=== PATIENT | female | born 1960 | race Caucasian/White ===

== ENCOUNTER 2016-12-19 10:54 | Emergency (ER) | payer OTHER, MEDICAID ==
[~2016-12-19 10:54] MED LIST: ACE1030 IN; ACET160S GT; ALBU0.084 IN; ARIP20TA5 GT; ASPI325T4 GT; BENZ1CAP24 GT; CALCTAB25 GT; CARI-277 GT; CRAN425C2 GT; DOCU-94 GT; FAM20T GT; FERR220E2 GT; GABA300C GT; IPRA0.03 IN; LORA-622 GT; LORA-655 PO; MULTCAP45 GT; NAPR-604 GT; NUTR-1080 GT; POLY33504 GT; QUET50TA GT; SERT-160 GT; TRAM-297 PO; ZOLP12.564 GT
[2016-12-19] MEDS ORDERED: SODIUM CHLORIDE 0.9% 1,000 ML IV ONE (11:07)
[2016-12-19 11:37] LABS: Urine Bilirubin Negative (Negative); Urine Blood Negative /uL (Negative); Urine Color Yellow (Yellow); Urine Glucose Normal (Normal); Urine Ketone Negative (Negative); Urine Nitrite Negative (Negative); Urine RBC 1 /hpf (0 - 4); Urine Squamous Epithelial Cell FEW /hpf (<5); Urine Urobilinogen Normal (Negative)
[2016-12-19 13:13] LABS: Basophils # (auto) 0 uL; Basophils % (auto) 0.2 % (0.0-2.0); Eosinophils # (auto) 0.2 uL; Hematocrit 45.3 % (36.0-46.0); Hemoglobin 15.3 g/dL (12.2-16.2); Lymphocytes # (auto) 0.7 uL; Mean Corpuscular Hemoglobin 28.2 pg (28.0-32.0); Mean Corpuscular Hgb Conc. 33.8 g/dL (32.0-36.0); Mean Corpuscular Volume 83.4 fL (80.0-100.0); Mean Platelet Volume 8.2 fL (7.4-10.4); Monocytes # (auto) 0.3 uL; Monocytes % (auto) 4.9 % (0.0-12.0); Neutrophils # (auto) 4.2 uL; Neutrophils % (auto) 78.9 % (37.0-80.0); Platelet Count (auto) 114 10^3/uL (140-450); Red Cell Distribution Width 14.8 % (11.6-16.0); White Blood Cell 5.3 10^3/uL (4.4-10.8)
[2016-12-19 13:29] LABS: Albumin 3.5 g/dL (3.4-5.0); Anion Gap 5 (5-15); Blood Urea Nitrogen 14 mg/dL (7-18); Calcium 9.4 mg/dL (8.5-10.1); Carbon Dioxide 35 mmol/L (21-32); Chloride 98 mmol/L (98-107); Glucose 92 mg/dL (74-106); Magnesium 2.6 mg/dL (1.6-2.6); Potassium 4.4 mmol/L (3.5-5.1); Sodium 138 mmol/L (136-145)
[2016-12-19 13:31] LABS: Aspartate Aminotransferase 39 U/L (15-37); BUN/Creatinine Ratio 21.2; GFR African American 119 mL/min; GFR Non-African American 98 mL/min
[2016-12-19 13:36] LABS: Alkaline Phosphatase 151 U/L (45-117); Bilirubin, Total 0.4 mg/dL (0.2-1.0); Total Protein 7.6 g/dL (6.4-8.2)
[2016-12-19 14:02] LABS: B-Type Natriuretic Peptide 46.21 pg/mL (0-100)
[2016-12-19 14:09] LABS: Temperature: 24.3 C (20.0-25.0)
[2016-12-19 16:31] VITALS: BP 130/77
== END 2016-12-19 17:33 | disposition home or self-care (01) ==
LOC: EDBD 10:54 → ER 10:54 → EDUNIT# 10:54 → ER 17:33
DX: N39.0 Urinary tract infection, site not specified (principal); E11.9 Type 2 diabetes mellitus without complications; Z86.73 Personal history of transient ischemic attack (TIA), and cerebral infarction without residual deficits; J44.9 Chronic obstructive pulmonary disease, unspecified; I10 Essential (primary) hypertension; Z46.82 Encounter for fitting and adjustment of non-vascular catheter; Z79.82 Long term (current) use of aspirin; Z79.899 Other long term (current) drug therapy
CPT/HCPCS: 36415; 70110; 70486; 71010; 80053; 81001; 83605; 83735; 83880; 84484; 85025; 87040; 94761

== ENCOUNTER 2016-12-19 18:52 | Emergency (ER) | payer OTHER, MEDICAID ==
[~2016-12-19] VITALS: Ht 167.6 cm; Wt 68.0 kg
[2016-12-19] MEDS ORDERED: PROPOFOL 100 ML IV ONE (20:47)
[2016-12-19 21:00] VITALS: BP 104/64
[2016-12-19] MEDS ORDERED: PROPOFOL 10 MG/ML 20 ML IV ONE (21:00)
== END 2016-12-19 22:29 | disposition home or self-care (01) ==
LOC: EDUNIT# 18:52 → ER 18:55
DX: S03.03XA Dislocation of jaw, bilateral, initial encounter (principal); J44.9 Chronic obstructive pulmonary disease, unspecified; E11.9 Type 2 diabetes mellitus without complications; I10 Essential (primary) hypertension; Z86.73 Personal history of transient ischemic attack (TIA), and cerebral infarction without residual deficits; X58.XXXA Exposure to other specified factors, initial encounter; Y93.89 Activity, other specified; Y99.8 Other external cause status; Y92.89 Other specified places as the place of occurrence of the external cause
CPT/HCPCS: 21480; 94761; 99152; 99285; J2704

== ENCOUNTER 2017-03-04 16:44 | Emergency (ER) | payer OTHER, MEDICAID ==
[~2017-03-04] VITALS: Ht 167.6 cm; Wt 63.5 kg
[~2017-03-04 16:44] MED LIST changes: -ACET160S GT; +ACET5SOL5 GT; +ARIP1TAB7 GT; -ARIP20TA5 GT
[2017-03-04 19:36] LABS: Potassium 4.8 mmol/L (3.5-5.1)
[2017-03-04 19:39] LABS: BUN/Creatinine Ratio 22.8; Calcium 8.9 mg/dL (8.5-10.1)
[2017-03-04 19:41] LABS: Bilirubin, Total 0.4 mg/dL (0.2-1.0); Total Protein 6.8 g/dL (6.4-8.2)
[2017-03-04 20:05] LABS: Basophils # (auto) 0 uL; Basophils % (auto) 0.3 % (0.0-2.0); CONDITION Y; Eosinophils # (auto) 0.2 uL; Hematocrit 35.5 % (36.0-46.0); Lymphocytes # (auto) 1.1 uL; Mean Corpuscular Hemoglobin 28.7 pg (28.0-32.0); Mean Corpuscular Hgb Conc. 33.8 g/dL (32.0-36.0); Mean Corpuscular Volume 84.8 fL (80.0-100.0); Mean Platelet Volume 8.1 fL (7.4-10.4); Monocytes # (auto) 0.3 uL; Monocytes % (auto) 5.2 % (0.0-12.0); Neutrophils # (auto) 3.5 uL; Neutrophils % (auto) 68.5 % (37.0-80.0); Platelet Count (auto) 196 10^3/uL (140-450); Red Cell Distribution Width 14.5 % (11.6-16.0); White Blood Cell 5.2 10^3/uL (4.4-10.8)
[2017-03-04] MEDS ORDERED: ETOMIDATE (2MG/ML) 20ML VIAL IV ONE ×2 (20:36→20:45)
[2017-03-04] MEDS ORDERED: SUCCINYLCHOLINE CHLORIDE 20 MG/ML 10ML VIAL IV ONE ×2 (20:36→20:45)
[2017-03-05 01:23] VITALS: BP 103/62
== END 2017-03-05 03:21 | disposition home or self-care (01) ==
LOC: EDBD 16:44 → ER 16:47
DX: S03.03XA Dislocation of jaw, bilateral, initial encounter (principal); J96.10 Chronic respiratory failure, unspecified whether with hypoxia or hypercapnia; I63.9 Cerebral infarction, unspecified; J44.9 Chronic obstructive pulmonary disease, unspecified; E11.9 Type 2 diabetes mellitus without complications; I10 Essential (primary) hypertension; Z93.0 Tracheostomy status; Z79.899 Other long term (current) drug therapy; X58.XXXA Exposure to other specified factors, initial encounter; Y93.89 Activity, other specified; Y99.8 Other external cause status; Y92.89 Other specified places as the place of occurrence of the external cause
CPT/HCPCS: 21480; 36415; 70330; 70486; 80053; 85025; 99152; 99153; 99291; J0330; 20605

== ENCOUNTER 2017-06-09 09:59 | Emergency (ER) | payer OTHER, MEDICAID ==
[~2017-06-09] VITALS: Ht 175.3 cm; Wt 83.9 kg
[~2017-06-09 09:59] MED LIST changes: -NAPR-604 GT; +NAPR375T3 GT
[2017-06-09] MEDS ORDERED: SODIUM CHLORIDE 0.9% 1,000 ML IV SCH (13:34)
[2017-06-09] MEDS ORDERED: LORazepam 2MG/ML-1ML VIAL IV PRN (13:45)
[2017-06-09] MEDS ORDERED: PROMETHAZINE HCL 25 MG/ML 1ML IV PRN (13:45)
[2017-06-09] MEDS ORDERED: MORPHINE SULFATE 10 MG/ML INJ 1ML SDV IV PRN (13:45)
[2017-06-09] MEDS ORDERED: LORazepam 0.5 MG TAB PO PRN (13:45)
[2017-06-09] MEDS ORDERED: traMADol HCL 50 MG TAB PO PRN (13:45)
[2017-06-09] MEDS ORDERED: GASTROGRAFIN 30 ML SOL ONE (13:50)
[2017-06-09] MEDS ORDERED: [UNRECOGNIZED DRUG - OTHER] GT SCH (14:00)
[2017-06-09 14:34] VITALS: BP 102/55
[2017-06-09] MEDS ORDERED: QUEtiapine FUMARATE 25 MG TAB GT SCH (18:00)
[2017-06-09] MEDS ORDERED: IPRATROPIUM BROM 0.5 MG/2.5ML INH SOL NEB PRN (18:00)
[2017-06-09] MEDS ORDERED: ALBUTEROL SULF 2.5 MG/0.5ML(0.5%) NEB SOLN NEB PRN (18:00)
[2017-06-09] MEDS ORDERED: GABAPENTIN 300 MG CAP GT SCH (22:00)
[2017-06-09] MEDS ORDERED: FERROUS SULFATE 220 MG GT SCH (22:00)
[2017-06-09] MEDS ORDERED: FAMOTIDINE 20 MG TAB GT SCH (22:00)
[2017-06-09] MEDS ORDERED: CARISOPRODOL 350 MG TAB GT SCH (22:00)
[2017-06-09] MEDS ORDERED: ZOLPIDEM TARTRATE 5 MG TAB GT SCH (22:00)
[2017-06-10] MEDS ORDERED: ARIPIPRAZOLE 15 MG GT SCH (10:00)
[2017-06-10] MEDS ORDERED: CALCIUM W/VIT D (600MG/400IU) TAB GT SCH (10:00)
[2017-06-10] MEDS ORDERED: MULTIPLE VITAMIN TAB GT SCH (10:00)
[2017-06-10] MEDS ORDERED: SERTRALINE HCL 50 MG TAB GT SCH (10:00)
== END 2017-06-09 16:47 | disposition home or self-care (01) ==
LOC: EDBD 09:59 → ER 09:59
DX: Z43.1 Encounter for attention to gastrostomy (principal); J44.9 Chronic obstructive pulmonary disease, unspecified; E11.9 Type 2 diabetes mellitus without complications; I10 Essential (primary) hypertension; Z86.73 Personal history of transient ischemic attack (TIA), and cerebral infarction without residual deficits; Z79.899 Other long term (current) drug therapy
CPT/HCPCS: 43760; 74020; 99284; Q9963

== ENCOUNTER 2017-08-14 12:48 | Emergency (ER) | payer OTHER, MEDICAID ==
[~2017-08-14] VITALS: Ht 167.6 cm; Wt 68.0 kg
[~2017-08-14 12:48] MED LIST changes: +NAPR375T27 GT; -NAPR375T3 GT
[2017-08-14] MEDS ORDERED: SODIUM CHLORIDE 0.9% 1,000 ML IVB ONE (13:46)
[2017-08-14] MEDS ORDERED: LORazepam 2MG/ML-1ML VIAL IV ONE (14:00)
[2017-08-14 14:37] LABS: Basophils # (auto) 0 uL; Basophils % (auto) 0.4 % (0.0-2.0); Eosinophils # (auto) 0 uL; Eosinophils % (auto) 0.5 % (0.0-7.0); Hematocrit 37.7 % (36.0-46.0); Hemoglobin 12.5 g/dL (12.2-16.2); Lymphocytes # (auto) 0.5 uL; Lymphocytes % (auto) 11.3 % (10.0-50.0); Mean Corpuscular Hemoglobin 30.3 pg (28.0-32.0); Mean Corpuscular Hgb Conc. 33.1 g/dL (32.0-36.0); Mean Corpuscular Volume 91.6 fL (80.0-100.0); Monocytes # (auto) 0.3 uL; Monocytes % (auto) 6.7 % (0.0-12.0); Neutrophils # (auto) 3.3 uL; Neutrophils % (auto) 81.1 % (37.0-80.0); Nucleated Red Blood Cells % 0.1 %; Platelet Count (auto) 136 10^3/uL (140-450); Red Blood Cells 4.12 10^6/uL (4.0-5.20); Red Cell Distribution Width 14.5 % (11.8-14.3); White Blood Cell 4.1 10^3/uL (4.4-10.8)
[2017-08-14 14:57] LABS: BUN/Creatinine Ratio 19.7; Bilirubin, Total 0.5 mg/dL (0.2-1.0); Calcium 8.4 mg/dL (8.5-10.1); Total Protein 6.9 g/dL (6.4-8.2)
[2017-08-14 16:12] LABS: Urine Bacteria NONE SEEN /hpf (None Seen); Urine Blood Negative /uL (Negative); Urine Specific Gravity 1.011 (1.001-1.035); Urine WBC 3 /hpf (0 - 5)
[2017-08-14 17:15] VITALS: BP 109/55
[2017-08-14] MEDS ORDERED: cefTRIAXone 1GM/10ml IVPUSH 10 ML IV ONE (18:15)
== END 2017-08-14 19:10 | disposition home or self-care (01) ==
LOC: EDBD 12:48 → ER 12:57
DX: S03.03XA Dislocation of jaw, bilateral, initial encounter (principal); J44.9 Chronic obstructive pulmonary disease, unspecified; E11.9 Type 2 diabetes mellitus without complications; I10 Essential (primary) hypertension; E44.1 Mild protein-calorie malnutrition; R62.50 Unspecified lack of expected normal physiological development in childhood; R06.02 Shortness of breath; R74.8 Abnormal levels of other serum enzymes; Z68.24 Body mass index [BMI] 24.0-24.9, adult; Z87.440 Personal history of urinary (tract) infections; Z79.82 Long term (current) use of aspirin; Z86.73 Personal history of transient ischemic attack (TIA), and cerebral infarction without residual deficits; Z93.1 Gastrostomy status; Z93.0 Tracheostomy status; Z79.899 Other long term (current) drug therapy; X58.XXXA Exposure to other specified factors, initial encounter; Y93.89 Activity, other specified; Y92.89 Other specified places as the place of occurrence of the external cause; Y99.8 Other external cause status
CPT/HCPCS: 21480; 36415; 51702; 80053; 81001; 83735; 85025; 93005; 96361; 96374; 99285; J2060

== ENCOUNTER 2017-08-19 20:12 | Emergency (ER) | payer OTHER, MEDICAID ==
[~2017-08-19] VITALS: Ht 167.6 cm; Wt 68.0 kg
[2017-08-19] MEDS ORDERED: LORazepam 2MG/ML-1ML VIAL IV ONE (23:30)
[2017-08-20] MEDS ORDERED: ETOMIDATE (2MG/ML) 20ML VIAL IV ONE ×2 (03:45→06:15)
[2017-08-20 08:23] VITALS: BP 148/76
== END 2017-08-20 09:29 | disposition home or self-care (01) ==
LOC: EDBD 20:12 → ER 20:12
DX: S03.03XA Dislocation of jaw, bilateral, initial encounter (principal); X58.XXXA Exposure to other specified factors, initial encounter; Y93.89 Activity, other specified; Y92.89 Other specified places as the place of occurrence of the external cause; Y99.8 Other external cause status; J44.9 Chronic obstructive pulmonary disease, unspecified; E11.9 Type 2 diabetes mellitus without complications; I10 Essential (primary) hypertension; Z86.73 Personal history of transient ischemic attack (TIA), and cerebral infarction without residual deficits; Z79.82 Long term (current) use of aspirin
CPT/HCPCS: 21480; 70110; 70486; 96374; 99285; J2060; J7030

== ENCOUNTER 2017-11-02 11:22 | Emergency (ER) | payer OTHER, MEDICAID ==
[~2017-11-02] VITALS: Ht 172.7 cm; Wt 78.0 kg
[2017-11-02] MEDS ORDERED: LORazepam 2MG/ML-1ML VIAL IV ONE (16:15)
[2017-11-03 03:30] VITALS: BP 115/70
== END 2017-11-02 18:02 | disposition home or self-care (01) ==
LOC: ER 11:22 → EDBD 11:22 → ER 18:02
DX: S03.00XA Dislocation of jaw, unspecified side, initial encounter (principal); J96.10 Chronic respiratory failure, unspecified whether with hypoxia or hypercapnia; I10 Essential (primary) hypertension; E11.9 Type 2 diabetes mellitus without complications; R62.50 Unspecified lack of expected normal physiological development in childhood; J44.9 Chronic obstructive pulmonary disease, unspecified; F32.9 Major depressive disorder, single episode, unspecified; Z88.6 Allergy status to analgesic agent; Z86.73 Personal history of transient ischemic attack (TIA), and cerebral infarction without residual deficits; X58.XXXA Exposure to other specified factors, initial encounter; Y93.89 Activity, other specified; Y92.89 Other specified places as the place of occurrence of the external cause; Y99.8 Other external cause status
CPT/HCPCS: 21480; 99285; J2060

== ENCOUNTER 2018-04-24 09:25 | Emergency (ER) | payer OTHER, MEDICAID ==
[~2018-04-24] VITALS: Ht 167.6 cm; Wt 99.8 kg
[~2018-04-24 09:25] MED LIST changes: -FERR220E2 GT; +FERR220L GT
[2018-04-24] MEDS ORDERED: MIDAZOLAM HCL 1MG/1ML-2 ML VIAL IV ONE (10:15)
[2018-04-24] MEDS ORDERED: ONDANSETRON HCL 4 MG/2 ML VIAL IV ONE (10:15)
[2018-04-24] MEDS ORDERED: ETOMIDATE (2MG/ML) 20ML VIAL IV ONE (11:45)
[2018-04-24] MEDS ORDERED: MORPHINE SULFATE 4 MG/ML SYR/VIAL IV ONE (11:45)
[2018-04-24 12:48] VITALS: BP 125/71
== END 2018-04-24 12:56 | disposition home or self-care (01) ==
LOC: EDBD 09:25 → ER 09:25
DX: S03.03XA Dislocation of jaw, bilateral, initial encounter (principal); J44.9 Chronic obstructive pulmonary disease, unspecified; E11.9 Type 2 diabetes mellitus without complications; I10 Essential (primary) hypertension; Z86.73 Personal history of transient ischemic attack (TIA), and cerebral infarction without residual deficits; Z87.440 Personal history of urinary (tract) infections; X58.XXXA Exposure to other specified factors, initial encounter; Y93.89 Activity, other specified; Y92.89 Other specified places as the place of occurrence of the external cause; Y99.8 Other external cause status
CPT/HCPCS: 21480; 70140; 96374; 96375; 99285; J2250; J2270; J2405

== ENCOUNTER 2018-04-30 13:28 | Emergency (ER) | payer OTHER, MEDICAID ==
[~2018-04-30] VITALS: Ht 154.9 cm; Wt 72.6 kg
[2018-04-30] MEDS ORDERED: PANT40TA2 GT (13:57)
[2018-04-30] MEDS ORDERED: LORazepam 2MG/ML-1ML VIAL ONE (14:31)
[2018-04-30] MEDS ORDERED: LORazepam 2MG/ML-1ML VIAL IV ONE (14:45)
[2018-04-30 15:35] VITALS: BP 180/78
== END 2018-04-30 15:16 | disposition home or self-care (01) ==
LOC: EDBD 13:28 → ER 13:28
DX: S03.03XA Dislocation of jaw, bilateral, initial encounter (principal); J44.9 Chronic obstructive pulmonary disease, unspecified; E11.9 Type 2 diabetes mellitus without complications; I10 Essential (primary) hypertension; Z86.73 Personal history of transient ischemic attack (TIA), and cerebral infarction without residual deficits; Z88.8 Allergy status to other drugs, medicaments and biological substances; Z79.82 Long term (current) use of aspirin; Z79.899 Other long term (current) drug therapy; Z93.0 Tracheostomy status; Z93.1 Gastrostomy status; X58.XXXA Exposure to other specified factors, initial encounter; Y93.89 Activity, other specified; Y99.8 Other external cause status; Y92.89 Other specified places as the place of occurrence of the external cause
CPT/HCPCS: 21480; 96374; 99284; J2060

== ENCOUNTER 2018-06-01 11:39 | Emergency (ER) | payer MEDICAID, MEDICARE, OTHER ==
[~2018-06-01] VITALS: Ht 167.6 cm; Wt 63.5 kg
[~2018-06-01 11:39] MED LIST changes: -DOCU-94 GT; -FAM20T GT; +PANT40TA2 GT
[2018-06-01] MEDS ORDERED: MIDAZOLAM HCL 1MG/1ML-2 ML VIAL IV ONE (12:15)
[2018-06-01] MEDS ORDERED: ONDANSETRON HCL 4 MG/2 ML VIAL IV ONE (12:15)
[2018-06-01 16:51] VITALS: BP 107/63
== END 2018-06-01 17:08 | disposition home or self-care (01) ==
LOC: ER 11:39 → EDBD 11:39 → EDUNIT# 11:39 → ER 17:08
DX: S03.01XA Dislocation of jaw, right side, initial encounter (principal); E11.9 Type 2 diabetes mellitus without complications; I10 Essential (primary) hypertension; J44.9 Chronic obstructive pulmonary disease, unspecified; Z86.73 Personal history of transient ischemic attack (TIA), and cerebral infarction without residual deficits; Z79.899 Other long term (current) drug therapy; Z88.8 Allergy status to other drugs, medicaments and biological substances; X58.XXXA Exposure to other specified factors, initial encounter; Y93.89 Activity, other specified; Y99.8 Other external cause status; Y92.89 Other specified places as the place of occurrence of the external cause
CPT/HCPCS: 21480; 70140; 93005; 96374; 99152; 99285; J2250; J2405; 96375

== ENCOUNTER 2018-07-04 09:39 | Emergency (ER) | payer MEDICARE ==
[~2018-07-04] VITALS: Ht 167.6 cm; Wt 68.0 kg
[2018-07-04] MEDS: MIDAZOLAM HCL 5 MG/ML-1ML VIAL IV ONE (11:03)
[2018-07-04 12:33] VITALS: BP 99/59
== END 2018-07-04 13:19 | disposition home or self-care (01) ==
LOC: EDBD 09:39 → ER 09:39
DX: S03.03XA Dislocation of jaw, bilateral, initial encounter (principal); J44.9 Chronic obstructive pulmonary disease, unspecified; E11.9 Type 2 diabetes mellitus without complications; I10 Essential (primary) hypertension; Z86.73 Personal history of transient ischemic attack (TIA), and cerebral infarction without residual deficits; Z87.440 Personal history of urinary (tract) infections; Z88.6 Allergy status to analgesic agent; Z79.82 Long term (current) use of aspirin; Z79.899 Other long term (current) drug therapy; X58.XXXA Exposure to other specified factors, initial encounter; Y93.89 Activity, other specified; Y92.89 Other specified places as the place of occurrence of the external cause; Y99.8 Other external cause status
CPT/HCPCS: 21480; 94761; 96374; 99284; J2250

== ENCOUNTER 2018-07-10 11:18 | Emergency (ER) | payer MEDICARE ==
[~2018-07-10] VITALS: Ht 167.6 cm; Wt 72.6 kg
[2018-07-10] MEDS ORDERED: MIDAZOLAM HCL 5 MG/ML-1ML VIAL IV ONE (11:45)
[2018-07-10 15:54] VITALS: BP 104/59
== END 2018-07-10 15:55 | disposition home or self-care (01) ==
LOC: ER 11:18 → EDBD 11:18 → ER 15:55
DX: S03.00XA Dislocation of jaw, unspecified side, initial encounter (principal); J44.9 Chronic obstructive pulmonary disease, unspecified; E11.9 Type 2 diabetes mellitus without complications; I10 Essential (primary) hypertension; Z86.73 Personal history of transient ischemic attack (TIA), and cerebral infarction without residual deficits; Z79.899 Other long term (current) drug therapy; Z88.8 Allergy status to other drugs, medicaments and biological substances; X58.XXXA Exposure to other specified factors, initial encounter; Y93.89 Activity, other specified; Y99.8 Other external cause status; Y92.89 Other specified places as the place of occurrence of the external cause
CPT/HCPCS: 21480; 70110; 94761; 99285; J2250

== ENCOUNTER 2018-07-29 10:26 | Emergency (ER) | payer MEDICARE ==
[~2018-07-29] VITALS: Ht 162.6 cm; Wt 81.6 kg
[2018-07-29] MEDS ORDERED: ETOMIDATE (2MG/ML) 20ML VIAL IV ONE (11:00)
[2018-07-29 16:07] VITALS: BP 126/70
== END 2018-07-29 16:52 | disposition home or self-care (01) ==
LOC: EDUNIT# 10:26 → ER 10:26 → EDBD 10:26 → ER 16:52
DX: S03.00XA Dislocation of jaw, unspecified side, initial encounter (principal); J44.9 Chronic obstructive pulmonary disease, unspecified; E11.9 Type 2 diabetes mellitus without complications; I10 Essential (primary) hypertension; Z79.82 Long term (current) use of aspirin; Z79.899 Other long term (current) drug therapy; Z86.73 Personal history of transient ischemic attack (TIA), and cerebral infarction without residual deficits; Z88.8 Allergy status to other drugs, medicaments and biological substances; X58.XXXA Exposure to other specified factors, initial encounter; Y93.89 Activity, other specified; Y99.8 Other external cause status; Y92.89 Other specified places as the place of occurrence of the external cause
CPT/HCPCS: 96374

== ENCOUNTER 2018-08-13 11:51 | Emergency (ER) | payer MEDICARE ==
[~2018-08-13] VITALS: Ht 170.2 cm; Wt 72.6 kg
[2018-08-13] MEDS ORDERED: MIDAZOLAM HCL 1MG/1ML-2 ML VIAL IV ONE (12:00)
[2018-08-13 12:06] VITALS: BP 105/66
[2018-08-13] MEDS ORDERED: diphenhdrAMINE HCL 50 MG/1 ML VL IV ONE (12:30)
== END 2018-08-13 14:19 | disposition home or self-care (01) ==
LOC: EDBD 11:51 → ER 11:56
DX: S03.03XA Dislocation of jaw, bilateral, initial encounter (principal); J44.9 Chronic obstructive pulmonary disease, unspecified; E11.9 Type 2 diabetes mellitus without complications; I10 Essential (primary) hypertension; Z86.73 Personal history of transient ischemic attack (TIA), and cerebral infarction without residual deficits; Z87.440 Personal history of urinary (tract) infections; Z79.01 Long term (current) use of anticoagulants; Z79.82 Long term (current) use of aspirin; Z88.6 Allergy status to analgesic agent; X58.XXXA Exposure to other specified factors, initial encounter; Y93.89 Activity, other specified; Y92.89 Other specified places as the place of occurrence of the external cause; Y99.8 Other external cause status
CPT/HCPCS: 21480; 70110; 94761; 96374; 99284; J2250

== ENCOUNTER 2018-08-30 09:31 | Emergency (ER) | payer MEDICARE ==
[~2018-08-30] VITALS: Ht 154.9 cm; Wt 77.1 kg
[2018-08-30] MEDS ORDERED: SODIUM CHLORIDE 0.9% 1,000 ML IV ONE (10:03)
[2018-08-30] MEDS ORDERED: MIDAZOLAM HCL 5 MG/ML-1ML VIAL IV ONE (10:15)
[2018-08-30 15:41] VITALS: BP 115/62
== END 2018-08-30 16:51 | disposition home or self-care (01) ==
LOC: EDBD 09:31 → ER 09:34
DX: S03.03XA Dislocation of jaw, bilateral, initial encounter (principal); S62.522A Displaced fracture of distal phalanx of left thumb, initial encounter for closed fracture; J96.10 Chronic respiratory failure, unspecified whether with hypoxia or hypercapnia; J44.9 Chronic obstructive pulmonary disease, unspecified; E11.9 Type 2 diabetes mellitus without complications; K21.9 Gastro-esophageal reflux disease without esophagitis; I10 Essential (primary) hypertension; Z93.1 Gastrostomy status; Z93.0 Tracheostomy status; Z87.440 Personal history of urinary (tract) infections; Z88.8 Allergy status to other drugs, medicaments and biological substances; Z79.899 Other long term (current) drug therapy; X58.XXXA Exposure to other specified factors, initial encounter; Y93.89 Activity, other specified; Y92.89 Other specified places as the place of occurrence of the external cause; Y99.8 Other external cause status
CPT/HCPCS: 21480; 29130; 73130; 99284; J2250; J7030

== ENCOUNTER 2018-09-18 18:27 | Emergency (ER) | payer MEDICARE ==
[~2018-09-18] VITALS: Ht 160 cm; Wt 63.5 kg
[2018-09-18] MEDS ORDERED: ETOMIDATE (2MG/ML) 20ML VIAL IV ONE (22:30)
[2018-09-19 05:40] VITALS: BP 101/52
== END 2018-09-19 06:15 | disposition home or self-care (01) ==
LOC: EDBD 18:27 → ER 18:31
DX: S03.03XA Dislocation of jaw, bilateral, initial encounter (principal); E11.9 Type 2 diabetes mellitus without complications; J44.9 Chronic obstructive pulmonary disease, unspecified; K21.9 Gastro-esophageal reflux disease without esophagitis; I10 Essential (primary) hypertension; Z79.899 Other long term (current) drug therapy; Z86.73 Personal history of transient ischemic attack (TIA), and cerebral infarction without residual deficits; Z79.82 Long term (current) use of aspirin; X58.XXXA Exposure to other specified factors, initial encounter; Y93.89 Activity, other specified; Y99.8 Other external cause status; Y92.89 Other specified places as the place of occurrence of the external cause
CPT/HCPCS: 21480; 70110; 70486

== ENCOUNTER 2018-09-23 09:54 | Emergency (ER) | payer MEDICARE ==
[~2018-09-23] VITALS: Ht 162.6 cm; Wt 63.5 kg
[2018-09-23] MEDS ORDERED: MIDAZOLAM HCL 1MG/1ML-2 ML VIAL IM ONE (12:30)
[2018-09-23] MEDS ORDERED: ETOMIDATE (2MG/ML) 20ML VIAL IV ONE ×2 (13:45→15:15)
[2018-09-23] MEDS ORDERED: KETAMINE HCL 50 MG/ML 10ML VIAL IM ONE (14:30)
[2018-09-23 16:02] VITALS: BP 108/68
== END 2018-09-23 16:49 | disposition home or self-care (01) ==
LOC: EDBD 09:54 → ER 09:54
DX: S03.03XA Dislocation of jaw, bilateral, initial encounter (principal); R41.82 Altered mental status, unspecified; J44.9 Chronic obstructive pulmonary disease, unspecified; E11.9 Type 2 diabetes mellitus without complications; K21.9 Gastro-esophageal reflux disease without esophagitis; I10 Essential (primary) hypertension; F32.9 Major depressive disorder, single episode, unspecified; Z86.73 Personal history of transient ischemic attack (TIA), and cerebral infarction without residual deficits; Z87.440 Personal history of urinary (tract) infections; X58.XXXA Exposure to other specified factors, initial encounter; Y93.89 Activity, other specified; Y92.89 Other specified places as the place of occurrence of the external cause; Y99.8 Other external cause status
CPT/HCPCS: 21480; 70110; 99285; J2250; J7030

== ENCOUNTER 2018-09-25 16:02 | Emergency (ER) | payer MEDICARE ==
[2018-09-25] MEDS ORDERED: ETOMIDATE (2MG/ML) 20ML VIAL IV ONE ×2 (17:15→17:45)
[2018-09-25 17:55] VITALS: BP 106/68
== END 2018-09-25 19:13 | disposition home or self-care (01) ==
LOC: EDBD 16:02 → EDSEX 16:02 → ER 16:07
DX: S03.03XA Dislocation of jaw, bilateral, initial encounter (principal); J44.9 Chronic obstructive pulmonary disease, unspecified; E11.9 Type 2 diabetes mellitus without complications; K21.9 Gastro-esophageal reflux disease without esophagitis; I10 Essential (primary) hypertension; Z87.440 Personal history of urinary (tract) infections; Z79.899 Other long term (current) drug therapy; X58.XXXA Exposure to other specified factors, initial encounter; Y93.89 Activity, other specified; Y92.89 Other specified places as the place of occurrence of the external cause; Y99.8 Other external cause status
CPT/HCPCS: 21480

== ENCOUNTER 2018-09-27 19:49 | Emergency (ER) | payer MEDICARE, MEDICAID ==
[2018-09-27] MEDS ORDERED: MIDAZOLAM HCL 5 MG/ML-1ML VIAL IV ONE (22:15)
[2018-09-28] MEDS ORDERED: MIDAZOLAM HCL 5 MG/ML-1ML VIAL IM ONE (05:30)
[2018-09-28] MEDS ORDERED: MORPHINE SULFATE 4 MG/ML SYR/VIAL IM ONE (12:00)
[2018-09-28] MEDS ORDERED: ONDANSETRON HCL 4 MG/2 ML VIAL IM ONE (12:00)
[2018-09-28 12:34] VITALS: BP 110/72
== END 2018-09-28 12:58 | disposition short-term general hospital (02) ==
LOC: EDBD 19:49 → ER 19:52
DX: S03.03XA Dislocation of jaw, bilateral, initial encounter (principal); E11.9 Type 2 diabetes mellitus without complications; K21.9 Gastro-esophageal reflux disease without esophagitis; J44.9 Chronic obstructive pulmonary disease, unspecified; I10 Essential (primary) hypertension; Z79.82 Long term (current) use of aspirin; Z79.899 Other long term (current) drug therapy; Z86.73 Personal history of transient ischemic attack (TIA), and cerebral infarction without residual deficits; X58.XXXA Exposure to other specified factors, initial encounter; Y93.89 Activity, other specified; Y99.8 Other external cause status; Y92.89 Other specified places as the place of occurrence of the external cause
CPT/HCPCS: 21480; 70486; 96372; 99285; J2250; J2270; J2405

== ENCOUNTER 2018-10-28 19:36 | Emergency (ER) | payer MEDICARE, MEDICAID ==
[~2018-10-28] VITALS: Ht 167.6 cm; Wt 79.8 kg
[2018-10-29] MEDS ORDERED: LORazepam 2MG/ML-1ML VIAL ONE (07:17)
[2018-10-29] MEDS ORDERED: MIDAZOLAM HCL 5 MG/ML-1ML VIAL IV ONE (07:30)
[2018-10-29] MEDS ORDERED: MIDAZOLAM HCL 1MG/1ML-2 ML VIAL IV ONE (07:30)
[2018-10-29] MEDS ORDERED: MIDAZOLAM HCL 5 MG/ML-1ML VIAL IM ONE (08:00)
[2018-10-29 09:44] VITALS: BP 112/62
== END 2018-10-29 09:48 ==
LOC: ER 19:36 → EDBD 19:36 → ER 10-29 09:48
DX: S03.03XA Dislocation of jaw, bilateral, initial encounter (principal); J44.9 Chronic obstructive pulmonary disease, unspecified; E11.9 Type 2 diabetes mellitus without complications; K21.9 Gastro-esophageal reflux disease without esophagitis; I10 Essential (primary) hypertension; Z87.440 Personal history of urinary (tract) infections; Z88.6 Allergy status to analgesic agent; Z79.899 Other long term (current) drug therapy; Z86.73 Personal history of transient ischemic attack (TIA), and cerebral infarction without residual deficits; X58.XXXA Exposure to other specified factors, initial encounter; Y93.89 Activity, other specified; Y92.89 Other specified places as the place of occurrence of the external cause; Y99.8 Other external cause status
CPT/HCPCS: 21480; 70486; 96372; 99285; J2250

== ENCOUNTER 2018-11-12 21:46 | Emergency (ER) | payer MEDICARE, MEDICAID ==
[~2018-11-12] VITALS: Ht 167.6 cm; Wt 77.1 kg
[2018-11-12] MEDS ORDERED: LORazepam 2MG/ML-1ML VIAL ONE (23:27)
[2018-11-13] MEDS ORDERED: ETOMIDATE (2MG/ML) 20ML VIAL IV ONE ×2 (05:40→06:00)
[2018-11-13 08:43] VITALS: BP 110/60
== END 2018-11-13 09:05 | disposition home or self-care (01) ==
LOC: EDBD 21:46 → ER 21:51
DX: S03.01XA Dislocation of jaw, right side, initial encounter (principal); J44.9 Chronic obstructive pulmonary disease, unspecified; E11.9 Type 2 diabetes mellitus without complications; K21.9 Gastro-esophageal reflux disease without esophagitis; I10 Essential (primary) hypertension; Z88.8 Allergy status to other drugs, medicaments and biological substances; Z79.899 Other long term (current) drug therapy; Z86.73 Personal history of transient ischemic attack (TIA), and cerebral infarction without residual deficits; X58.XXXA Exposure to other specified factors, initial encounter; Y93.89 Activity, other specified; Y99.8 Other external cause status; Y92.89 Other specified places as the place of occurrence of the external cause
CPT/HCPCS: 21480; 94640

== ENCOUNTER 2018-11-26 12:54 | Inpatient (IN) | payer MEDICARE, MEDICAID | END 2018-12-02 01:32 | LOC: TELE-CENTR 11-29 00:40 → OVERFLOW 11-28 22:52 → CENTRAL 11-28 23:00 → ER 12:54 → DOU 18:20 → OVERFLOW 23:35 | PROC: 5A1935Z Respiratory Ventilation, Less than 24 Consecutive Hours (ICD-10-PCS; principal; ~2018-11-26) | DX: A41.9 Sepsis, unspecified organism (principal); J96.21 Acute and chronic respiratory failure with hypoxia; J18.9 Pneumonia, unspecified organism; G93.41 Metabolic encephalopathy; T17.890A Other foreign object in other parts of respiratory tract causing asphyxiation, initial encounter; E44.0 Moderate protein-calorie malnutrition; J44.0 Chronic obstructive pulmonary disease with (acute) lower respiratory infection; E87.2 Acidosis; F31.9 Bipolar disorder, unspecified; D64.9 Anemia, unspecified; E11.9 Type 2 diabetes mellitus without complications; I10 Essential (primary) hypertension; Z93.0 Tracheostomy status; Z93.1 Gastrostomy status; E86.1 Hypovolemia; K80.20 Calculus of gallbladder without cholecystitis without obstruction; S03.00XA Dislocation of jaw, unspecified side, initial encounter ==

== ENCOUNTER 2018-12-09 16:01 | Emergency (ER) | payer MEDICARE, MEDICAID ==
[2018-12-09] MEDS ORDERED: LORazepam 2MG/ML-1ML VIAL IV ONE (17:00)
[2018-12-09 20:35] VITALS: BP 106/60
== END 2018-12-09 21:37 | disposition home or self-care (01) ==
LOC: EDBD 16:01 → ER 16:02
DX: S03.03XA Dislocation of jaw, bilateral, initial encounter (principal); J44.9 Chronic obstructive pulmonary disease, unspecified; E11.9 Type 2 diabetes mellitus without complications; K21.9 Gastro-esophageal reflux disease without esophagitis; I10 Essential (primary) hypertension; Z87.440 Personal history of urinary (tract) infections; X58.XXXA Exposure to other specified factors, initial encounter; Y93.89 Activity, other specified; Y92.89 Other specified places as the place of occurrence of the external cause; Y99.8 Other external cause status
CPT/HCPCS: 21480; 70110; 96374; 99285; J2060

== ENCOUNTER 2018-12-13 12:54 | Emergency (ER) | payer MEDICARE, MEDICAID ==
[~2018-12-13] VITALS: Ht 165.1 cm; Wt 81.6 kg
[2018-12-13] MEDS ORDERED: LORazepam 2MG/ML-1ML VIAL IV ONE (15:45)
[2018-12-13] MEDS ORDERED: LORazepam 2MG/ML-1ML VIAL IM ONE (16:00)
[2018-12-13] MEDS ORDERED: LORazepam 2MG/ML-1ML VIAL ONE (16:02)
[2018-12-13] MEDS ORDERED: hydrOXYzine HCL 25 MG/ML VL IM ONE (19:45)
[2018-12-13] MEDS ORDERED: MIDAZOLAM HCL 5 MG/ML-1ML VIAL IM ONE (20:00)
[2018-12-14 01:10] VITALS: BP 141/77
== END 2018-12-14 03:19 | disposition short-term general hospital (02) ==
LOC: EDBD 12:54 → ER 13:01
DX: S03.03XA Dislocation of jaw, bilateral, initial encounter (principal); J96.10 Chronic respiratory failure, unspecified whether with hypoxia or hypercapnia; J44.9 Chronic obstructive pulmonary disease, unspecified; E11.9 Type 2 diabetes mellitus without complications; K21.9 Gastro-esophageal reflux disease without esophagitis; I10 Essential (primary) hypertension; Z86.73 Personal history of transient ischemic attack (TIA), and cerebral infarction without residual deficits; Z87.440 Personal history of urinary (tract) infections; Z79.82 Long term (current) use of aspirin; Z79.899 Other long term (current) drug therapy; Z88.1 Allergy status to other antibiotic agents; Z93.1 Gastrostomy status; X58.XXXA Exposure to other specified factors, initial encounter; Y93.89 Activity, other specified; Y92.89 Other specified places as the place of occurrence of the external cause; Y99.8 Other external cause status
CPT/HCPCS: 21480; 94761; 99285; J2060; J2250

== ENCOUNTER 2018-12-26 20:58 | Emergency (ER) | payer MEDICARE, MEDICAID ==
[~2018-12-26] VITALS: Ht 165.1 cm; Wt 81.6 kg
[2018-12-26] MEDS ORDERED: MIDAZOLAM HCL 5 MG/ML-1ML VIAL IV ONE (22:00)
[2018-12-27 07:21] VITALS: BP 122/76
== END 2018-12-27 10:08 | disposition short-term general hospital (02) ==
LOC: EDBD 20:58 → ER 21:00
DX: S03.03XA Dislocation of jaw, bilateral, initial encounter (principal); F81.9 Developmental disorder of scholastic skills, unspecified; J44.9 Chronic obstructive pulmonary disease, unspecified; E11.9 Type 2 diabetes mellitus without complications; K21.9 Gastro-esophageal reflux disease without esophagitis; I10 Essential (primary) hypertension; F32.9 Major depressive disorder, single episode, unspecified; Z87.440 Personal history of urinary (tract) infections; Z88.6 Allergy status to analgesic agent; Z79.899 Other long term (current) drug therapy; X58.XXXA Exposure to other specified factors, initial encounter; Y93.89 Activity, other specified; Y92.89 Other specified places as the place of occurrence of the external cause; Y99.8 Other external cause status
CPT/HCPCS: 21480; 99152; 99153; 99285; J2250; J7030

== ENCOUNTER 2019-02-11 12:50 | Inpatient (IN) | payer MEDICARE, MEDICAID ==
[~2019-02-11] VITALS: Ht 165.1 cm; Wt 71.0 kg
[2019-02-11 14:32] LABS: Basophils # (auto) 0 uL; Basophils % (auto) 0.7 % (0.0-2.0); Eosinophils # (auto) 0.1 uL; Eosinophils % (auto) 1.5 % (0.0-7.0); Hemoglobin 12.4 g/dL (12.2-16.2); Lymphocytes # (auto) 1.2 uL; Lymphocytes % (auto) 18.4 % (10.0-50.0); Mean Corpuscular Hemoglobin 29.6 pg (28.0-32.0); Mean Corpuscular Hgb Conc. 33.6 g/dL (32.0-36.0); Mean Corpuscular Volume 88.4 fL (80.0-100.0); Monocytes # (auto) 0.3 uL; Monocytes % (auto) 5.2 % (0.0-12.0); Neutrophils # (auto) 4.9 uL; Neutrophils % (auto) 74.2 % (37.0-80.0); Nucleated Red Blood Cells % 0.1 %; Platelet Count (auto) 189 10^3/uL (140-450); Red Blood Cells 4.18 10^6/uL (4.0-5.20); Red Cell Distribution Width 14.4 % (11.8-14.3); White Blood Cell 6.6 10^3/uL (4.4-10.8)
[2019-02-11 14:48] LABS: Albumin 3.3 g/dL (3.4-5.0); BUN/Creatinine Ratio 33.3; Calcium 10.3 mg/dL (8.5-10.1); Magnesium 2.7 mg/dL (1.6-2.6); Potassium 4.3 mmol/L (3.5-5.1)
[2019-02-11 14:51] LABS: Bilirubin, Total 0.3 mg/dL (0.2-1.0); Total Protein 7.2 g/dL (6.4-8.2)
[2019-02-11] MEDS ORDERED: cefTRIAXone 1GM/50ML D5W 50 ML IV ONE (15:00)
[2019-02-11 15:59] LABS: Urine Amorphous Crystal FEW /hpf (None Seen); Urine Bacteria NONE SEEN /hpf (None Seen); Urine Blood Negative /uL (Negative); Urine Specific Gravity 1.007 (1.001-1.035); Urine WBC 2 /hpf (0 - 5)
[2019-02-11] MEDS ORDERED: MORPHINE SULF INJ 2 MG/ML SYRINGE 1ML IV PRN ×2 (16:00)
[2019-02-11] MEDS ORDERED: NITROGLYCERIN 0.4 MG SL TAB SL PRN (16:00)
[2019-02-11] MEDS: LEVOFLOXACIN 750MG 150 ML IV SCH (16:29)
[2019-02-11 18:21] VITALS: BP 134/73
--- NOTE | 2019-02-11 18:39 | NUR ---
Respiratory note: ASSESSED TRACH AT THIS TIME, NO REDNESS NOTED AROUND STOMA, NO SIGN OF INFECTION, TRACH SITE CLEAN AT THIS TIME, PT HAS SIZE 6.0 SHILEY. PT ON 30% O2 CM VIA TRACH COLLAR, WATER LEVEL ADEQUATE, NO DISTRESS NOTED AT THIS TIME, WILL CONTINUE TO MONITOR.
[2019-02-11] MEDS: ALBUTEROL SULF 2.5 MG/0.5ML(0.5%) NEB SOLN NEB SCH ×2 (18:40→22:21)
[2019-02-11] MEDS: BUDESONIDE (INHALATION) 0.5 MG/2 ML NEB NEB SCH (18:40)
[2019-02-11] MEDS: IPRATROPIUM BROM 0.5 MG/2.5ML INH SOL NEB SCH ×2 (18:40→22:21)
--- NOTE | 2019-02-11 18:40 | NUR ---
Admit to [facility] at 1821 Cheryl DERASdmitted to [facility] via gurney on monitoring manager, and portable 02. Patient transfered to bed, connected to unit monitoring and oxygen, and weighed by bedscale. Patient oriented to Chen Gao, RN primary RN, unit, room, bed, and unit policies regarding patient care and visiting hours. NOTE: Admitted for aspiration pneumonia. Arrived awake but nonverbal. Did follow command when told to turn and does have sustain eye contact. History of tracheostomy and peg tube. On trach collar with Fio2 of 30%. Number 6 shiley trach. tube with strong moist productive cough but does require deep tracheal suctioning. Large amount of thick yellow secretions obtained. Unable to answer admission questionaire, will obtain information from medical record. She resides at the [facility].
[2019-02-11 18:48] VITALS: BP 134/73
[2019-02-11 19:07] VITALS: BP 116/68
[2019-02-11 19:52] VITALS: BP 102/54
--- NOTE | 2019-02-11 20:00 | NUR ---
SHIFT OPENING NOTE RECEIVED PATIENT AWAKE, AND NONVERBAL. DOES NOT TRACK. TRACH 6 SHILEY ON COOL AERESOL 30% FI02 POX 98%. CURRENTLY NPO. PEG CLAMPED. WILL START TUBE FEEDINGS PER ORDER LATER ON. ALLEN CATH DRAINING CLEAR YELLOW URINE. PHYSICAL ASSESSMENT COMPLETED, SEE INTERVENTIONS. ATTEMPTED TO INSTRUCT ON POC. BED IN THE LOWEST POSITION WITH SIDE RAILS UP X2, CALL LIGHT IS WITHIN REACH.
[2019-02-11] MEDS: FERROUS SULFATE 300 MG/5 ML ORAL LIQ GT SCH (21:15)
[2019-02-11] MEDS: CLINDAMYCIN 300MG IV 50 ML IV SCH (21:15)
--- NOTE | 2019-02-11 23:00 | NUR ---
PATIENT APPEARS TO BE IN PAIN RESTLESS, GUARDING LEGS AND ABDOMEN. MEDICATED WITH MORPHINE PER MD ORDER. Addendum: 02/11/19 at 2306 by Beronica Plaza RN FEEDINGS HAVE NOT YET BEEN STARTED.
[2019-02-12] VITALS: BP 110/70
--- NOTE | 2019-02-12 00:05 | NUR ---
ROUNDS PATIENT QUIETLY LAYING IN BED AWAKE. NO SOB OR DISTRESS NOTED. COOL AERESOL 30% FI02 POX 98%. WILL CONTINUE TO CLOSELY MONITOR.
--- NOTE | 2019-02-12 02:00 | NUR ---
PEG FEEDINGS STARTED AT 15ML/H (GOAL IS 30 ML/H)
--- NOTE | 2019-02-12 02:16 | NUR ---
REPORT GIVEN AND CARE ENDORSED TO GERARDO PAIGE
--- NOTE | 2019-02-12 02:25 | NUR ---
Assumed care of pt from Beronica PAIGE. Pt stable. Deep suctioning performed. Pt tolerated well. Will continue to monitor.
[2019-02-12 04:00] VITALS: BP 110/66
[2019-02-12 05:36] LABS: Basophils # (auto) 0 uL; Basophils % (auto) 0.3 % (0.0-2.0); Eosinophils # (auto) 0.1 uL; Eosinophils % (auto) 1.3 % (0.0-7.0); Hematocrit 35.4 % (36.0-46.0); Hemoglobin 11.9 g/dL (12.2-16.2); Lymphocytes # (auto) 1.2 uL; Mean Corpuscular Hemoglobin 29.9 pg (28.0-32.0); Mean Corpuscular Hgb Conc. 33.7 g/dL (32.0-36.0); Mean Corpuscular Volume 88.8 fL (80.0-100.0); Monocytes # (auto) 0.4 uL; Monocytes % (auto) 6.1 % (0.0-12.0); Neutrophils # (auto) 4.7 uL; Neutrophils % (auto) 74.3 % (37.0-80.0); Platelet Count (auto) 160 10^3/uL (140-450); Red Blood Cells 3.98 10^6/uL (4.0-5.20); Red Cell Distribution Width 14.4 % (11.8-14.3); White Blood Cell 6.4 10^3/uL (4.4-10.8)
[2019-02-12] MEDS: BUDESONIDE (INHALATION) 0.5 MG/2 ML NEB NEB SCH ×2 (05:57→18:53)
[2019-02-12] MEDS: IPRATROPIUM BROM 0.5 MG/2.5ML INH SOL NEB SCH ×5 (05:57→22:40)
[2019-02-12] MEDS: ALBUTEROL SULF 2.5 MG/0.5ML(0.5%) NEB SOLN NEB SCH ×5 (05:57→22:40)
[2019-02-12 06:00] LABS: Potassium 4.5 mmol/L (3.5-5.1)
[2019-02-12 06:03] LABS: BUN/Creatinine Ratio 26.4; Calcium 10.3 mg/dL (8.5-10.1)
[2019-02-12] MEDS: CLINDAMYCIN 300MG IV 50 ML IV SCH ×3 (06:28→21:38)
--- NOTE | 2019-02-12 07:30 | NUR ---
RECEIVED PATIENT SEMI FOWLERS IN BED, PATIENT NON VERBAL, O2 BY THE TRACH COLLAR WITH 7L OF O2 AND 30% FIO2, TRACH SIZE 6, PEG TUBE TO THE LUQ WITH GLUCERNA AT 15ML/HR INFUSING BY THE FEEDING PUMP, ALLEN TO GRAVITY, PATIENT HAS A CHIN STRAP TO HELP PREVENT LOCK JAW,
--- NOTE | 2019-02-12 07:37 | NUR ---
Pt remained stable throughout the rest of shift. No S/S of distress. Report given, care endorsed.
[2019-02-12 08:00] VITALS: BP 115/68
--- NOTE | 2019-02-12 08:30 | NUR ---
PATIENT ON GLUCERNA FEEDING AT 15ML/HR INFUSING INTO THE PEG TUBE BY THE FEEDING PUMP
--- NOTE | 2019-02-12 09:30 | NUR ---
LYING IN BED WITH EYES CLOSED NO SIGNS OF PAIN
[2019-02-12] MEDS ORDERED: AZITHROMYCIN 500MG/ 250ML 250 ML IV SCH (10:00)
[2019-02-12] MEDS ORDERED: cefTRIAXone 1GM/50ML D5W 50 ML IV SCH (10:00)
[2019-02-12] MEDS: FERROUS SULFATE 300 MG/5 ML ORAL LIQ GT SCH ×2 (10:19→21:38)
[2019-02-12] MEDS: LEVOFLOXACIN 750MG 150 ML IV SCH (10:20)
--- NOTE | 2019-02-12 10:30 | NUR ---
explain medications to the patient regarding the dosage, usage and the side effects, patient is non verbal and meds given as ordered
--- NOTE | 2019-02-12 10:55 | NUR ---
dr noriega in to see the patient and stated that he notified dr hines that the patient was here
[2019-02-12 11:50] VITALS: BP 121/71
--- NOTE | 2019-02-12 11:50 | NUR ---
MEDICATED FOR H/A, PATIENT RUBBING HER HEAD AND MOVING AROUND IN THE BED, UNABLE TO SAY BUT APPEARS TO BE IN PAIN, PATIENT ALSO GIVEN A SPONGE BATH
[2019-02-12] MEDS: ACETAMINOPHEN 500 MG TAB PO PRN (11:51)
--- NOTE | 2019-02-12 12:57 | NUR ---
SEMI FOWLERS IN BED, EYES CLOSED AND NOT TOSSING OR RUBBING HER HEAD AT THIS TIME
--- NOTE | 2019-02-12 14:10 | NUR ---
PATIENT COUGHING UP SOME LIGHT CREAM COLORED SPUTUM FROM TRACH WHICH WAS CLEANED, FEEDING AT 20ML/HR BY THE PUMP
--- NOTE | 2019-02-12 14:46 | NUR ---
Respiratory note: PT RECEIVED [place] AND TRACH CARE. NO REDNESS AROUND STOMA SITE NOTED. MINIMAL DISCHARGE. SUCTION MODERATE AMOUNT CREAMY YELLOW SECRETION.
--- NOTE | 2019-02-12 15:24 | NUR ---
EYES CLOSED SITTING UP IN THE BED
[2019-02-12 15:52] VITALS: BP 103/63
--- NOTE | 2019-02-12 15:59 | NUR ---
WOUND CARE NURSE INTO SEE THE PATIENT
--- NOTE | 2019-02-12 16:02 | NUR ---
WOUND CARE NOTE: Wound care in to see patient per wound care request regarding "bed ridden, skin care.." and low Emmett score of 12, putting patient to high risk for skin breakdown. Patient is 58 y/o female with admitting diagnosis of Respiratory Failure. Patient has history of COPD, CVA, Depression, DM, GERD, Htn, UTI. Patient is resting in SDU bed in Rm 264. She's awake and non-verbal, on O2 via trach collar. Patient appears to be in no pain using Vergara Jaeger Faces Pain Scale. Skin assessment done with the assistance of SDU Natanael patterson. No open wound noted other than liner scratched to L lateral calf. Scratch is superficial, covered with thin brown scab, area is clean and dry, left open to air. No pressure injury issue noted. Patient is receiving BID/PRN cleaning and application of Barrier cream to sacrum and perineum with Opti foam sacral dressing to upper sacrum as preventative. Repositioned patient for comfort facing her Rt side,redistributed pressure points with pillows. Patient tolerated well. RECOMMENDATION: Continue with BID/PRN cleaning and application of Barrier cream to sacral/buttocks as preventative per MD order, Dietary consult for low Emmett score, frequent turning and repositioning schedule as condition permits, redistribute pressure points with pillows, elevate heels on pillows, continue monitoring by wound care while patient is hospitalized. Addendum: 02/12/19 at 1708 by Nelli Webber RN Amended: Links added.
--- NOTE | 2019-02-12 16:55 | NUR ---
LYING IN BED OPENS EYES WHEN YOU WALK INTO THE ROOM
--- NOTE | 2019-02-12 18:30 | NUR ---
PATIENT SITTING UP IN THE BED, NO CHANGES, RT WITH PATIENT DOING TRACH CARE, ALLEN TO GRAVITY, O2 BY THE TRACH COLLAR, AT 7L AND 30%, LFA WITH NS AT TKO CONNECT TO THE IV PUMP, PEG TUBE TO THE LUQ WITH GLUCERNA INFUSING BY THE FEEDING PUMP AT 20ML/MR, WILL CONTINUE TO MONITOR AND GIVE REPORT TO THE NEXT SHIFT
[2019-02-12 19:54] VITALS: BP 117/66
--- NOTE | 2019-02-12 20:12 | NUR ---
OPENING SHIFT RECEIVED REPORT FROM DAY SHIFT RN. ASSUMED CARE OF PATIENT. PATIENT IN BED RESTING WITH NO SIGNS OR SYMPTOMS OF SOB, PAIN OR DISTRESS. CURRENTLY ON 7L 30% TRACH, 02 SAT - 97%. LEFT FOREARM IV - CLEAN/DRY/INTACT. PEG TUBE PLACEMENT VERIFIED VIA AUSCULTATION WITH 10CC OF AIR. ALLEN HUNG TO GRAVITY ON BED RAIL. REPOSITIONED FOR COMFORT. BED IN LOWEST POSITION, SIDE RAILS UPX2, CALL LIGHT WITHIN REACH. WILL CONTINUE TO MONITOR.
[2019-02-13] VITALS: BP 103/97
--- NOTE | 2019-02-13 00:02 | NUR ---
ROUNDS PATIENT IN BED WITH NO SIGNS OR SYMPTOMS OF SOB, PAIN OR DISTRESS. CURRENTLY ON L 7L 02 30% TRACH, 02 SAT - 99%. REPOSITIONED FOR COMFORT. BED IN LOWEST POSITION, SIDE RAILS UP X2, CALL LIGHT WITHIN REACH. WILL CONTINUE TO MONITOR.
--- NOTE | 2019-02-13 02:30 | NUR ---
MORNING CARE PERFORMED MORNING CARE WITH CHG WIPES AND WASH CLOTHS TO THE FACE. PARTIAL LINEN AND GOWN CHANGED. REPOSITIONED FOR COMFORT. PATIENT TOLERATED WELL. BED IN LOWEST POSITION, SIDE RAILS UP X2, CALL LIGHT WITHIN REACH. WILL CONTINUE TO MONITOR.
--- NOTE | 2019-02-13 02:50 | NUR ---
RT NOTE: TRACH CARE PERFORMED, NO REDNESS OR BREAKDOWN NOTED. STOMA SITE CLEAN AND DRESSINGS CHANGED. INNER CANNULA CHANGED 6.0 SHILEY CUFFLESS. EXTRA TRACH AT BEDSIDE. PT ON COOL AEROSOL 8LPM FIO2 .30 ON TRACH COLLAR. SPO2 98% HR 68, RR 18. NO DISTRESS NOTED. TRACHEAL SUCTION SEMI THICK PRATT SECRETIONS.
[2019-02-13 04:00] VITALS: BP 111/54
--- NOTE | 2019-02-13 04:45 | NUR ---
ROUNDS PATIENT IN BED SLEEPING WITH NO SIGNS OR SYMPTOMS OF SOB, PAIN OR DISTRESS. REPOSITIONED FOR COMFORT. BED IN LOWEST POSITION, SIDE RAILS UP X2, CALL LIGHT WITHIN REACH. WILL CONTINUE TO MONITOR.
[2019-02-13 05:46] LABS: Basophils # (auto) 0 uL; Basophils % (auto) 0.7 % (0.0-2.0); Eosinophils # (auto) 0.1 uL; Eosinophils % (auto) 1.9 % (0.0-7.0); Hematocrit 35.3 % (36.0-46.0); Hemoglobin 11.8 g/dL (12.2-16.2); Lymphocytes # (auto) 1.1 uL; Lymphocytes % (auto) 24.8 % (10.0-50.0); Mean Corpuscular Hgb Conc. 33.5 g/dL (32.0-36.0); Mean Corpuscular Volume 89.4 fL (80.0-100.0); Monocytes # (auto) 0.3 uL; Monocytes % (auto) 7.5 % (0.0-12.0); Neutrophils % (auto) 65.1 % (37.0-80.0); Nucleated Red Blood Cells % 0.1 %; Platelet Count (auto) 154 10^3/uL (140-450); Red Blood Cells 3.95 10^6/uL (4.0-5.20); Red Cell Distribution Width 14.7 % (11.8-14.3); White Blood Cell 4.6 10^3/uL (4.4-10.8)
[2019-02-13 06:14] LABS: Potassium 4.2 mmol/L (3.5-5.1)
[2019-02-13 06:18] LABS: BUN/Creatinine Ratio 29.4; Calcium 10.1 mg/dL (8.5-10.1)
[2019-02-13] MEDS: CLINDAMYCIN 300MG IV 50 ML IV SCH ×3 (06:19→22:05)
[2019-02-13] MEDS: IPRATROPIUM BROM 0.5 MG/2.5ML INH SOL NEB SCH ×5 (06:50→23:01)
[2019-02-13] MEDS: ALBUTEROL SULF 2.5 MG/0.5ML(0.5%) NEB SOLN NEB SCH ×5 (06:50→23:01)
--- NOTE | 2019-02-13 06:50 | NUR ---
END OF SHIFT PATIENT IN BED SLEEPING WITH NO SIGNS OR SYMPTOMS OF SOB, PAIN OR DISTRESS. CURRENTLY ON 7L 02 30% TRACH, 02 SAT - 98%. REPOSITIONED FOR COMFORT. LEFT FOREARM IV - CLEAN/DRY/INTACT. ALLEN HUNG TO GRAVITY ON BED RAIL. BED IN LOWEST POSITION, SIDE RAILS UP X2, CALL LIGHT WITHIN REACH. WILL ENDORSE CARE TO DAY SHIFT RN.
[2019-02-13] MEDS: BUDESONIDE (INHALATION) 0.5 MG/2 ML NEB NEB SCH ×2 (06:51→19:18)
--- NOTE | 2019-02-13 07:30 | NUR ---
RECEIVED PATIENT SEMI FOWLERS IN BED, NO VERBAL RESPONSE WHEN NAME CALLED BUT WILL LOOK AT YOU, TRACH SIZE 6 TO THE THROAT WITH O2 BY THE TRACH COLLAR AT 7L AND 30%, ALLEN TO GRAVITY, CHIN STRAP IN PLACE, LFA WITH 20 SALINE LOCK FLUSHED AND PATENT, NO SIGNS OF PAIN AT THIS TIME
[2019-02-13 08:00] VITALS: BP 91/48
--- NOTE | 2019-02-13 08:30 | NUR ---
GLUCERNA INCREASE TO 30ML/HR BY THE FEEDING PUMP,
--- NOTE | 2019-02-13 09:00 | NUR ---
EYES OPEN , BUT NO VERBAL RESPONSE WHEN TALKED TO
--- NOTE | 2019-02-13 10:00 | NUR ---
POSITION CHANGED AND PATIENT HAS NO WOUNDS OR RED AREAS
[2019-02-13] MEDS: LEVOFLOXACIN 750MG 150 ML IV SCH (10:58)
[2019-02-13] MEDS: FERROUS SULFATE 300 MG/5 ML ORAL LIQ GT SCH ×2 (10:58→22:05)
[2019-02-13] MEDS: ACETAMINOPHEN 500 MG TAB PO PRN (11:03)
--- NOTE | 2019-02-13 11:05 | NUR ---
EXPLAIN MEDICATIONS TOT HE PATIENT REGARDING THE DOSAGE, USAGE AND THE SIDE EFFECTS, ALSO GAVE PATIENT TYLENOL WHEN ASK IF SHE WAS IN PAIN SHOOK HER HEAD YES BUT NOT ABLE TO GIVE A NUMBER
[2019-02-13 11:50] VITALS: BP 115/63
--- NOTE | 2019-02-13 12:00 | NUR ---
NO SIGNS OF PAIN LESS RESTLESS
--- NOTE | 2019-02-13 12:29 | NUR ---
FRIENDS IN TO VISIT WITH THE PATIENT, PATIENT SMILED WHEN THEY TALKED TO HER , BUT NO VERBAL RESPONSE
--- NOTE | 2019-02-13 13:30 | NUR ---
SITTING UP IN BED WITH EYES CLOSED
--- NOTE | 2019-02-13 14:30 | NUR ---
LOOKING TOWARDS THE TV, NO SIGNS OF PAIN
--- NOTE | 2019-02-13 15:10 | NUR ---
DR WARD IN TO SEE THE PATIENT AND ORDERED A ABG TO BE DONE NOW
[2019-02-13 15:48] VITALS: BP 107/64
--- NOTE | 2019-02-13 16:06 | NUR ---
ABG DONE AND TRACH CARE DONE BY RT
--- NOTE | 2019-02-13 17:05 | NUR ---
SITTING UP IN BED WITH EYES CLOSED NO SIGNS OF SOB OR PAIN
--- NOTE | 2019-02-13 18:20 | NUR ---
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
--- NOTE | 2019-02-13 19:00 | NUR ---
OPENING NOTE ASSUMED CARE OF PT AT THIS TIME. REPORT RECEIVED FROM DAY SHIFT RN. POC REVIEWED, HEAD TO TOE ASSESSMENT COMPLETE, SEE INTERVENTION SPREADSHEET FOR COMPLETE DETAILS. ON ASSESSMENT PT ABLE TO SQUEEZE LEFT HAND BUT NOT RIGHT HAND, PT ABLE TO MOVE BOTH FEET ON COMMAND. RECEIVED PT NON VERBAL, RT PUPIL FIXED, LEFT REACTIVE. RECEIVED PT WITH PEG TUBE, FEEDING RUNNING AT 30 MLS/HR. IV SITE BENIGN. LUNG SOUNDS DIMINISHED ON LEFT SIDE, COURSE ON RIGHT SIDE. RECEIVED PT WITH TRACH AND TRACH COLLAR. VSS. BED LOCKED AND IN LOWEST POSITION, SAFETY PRECAUTIONS IN PLACE. WILL MONITOR PT CAREFULLY.
--- NOTE | 2019-02-13 19:21 | NUR ---
Respiratory note: ASSESSED TRACH AT THIS TIME, PT HAS SIZE 6.0 SHILEY TRACH WITH NO SIGN OF INFECTION AROUND STOMA, TRACH SITE CLEAN, PT HAS TRACH MASK WITH COOL MIST SET UP AT 30%, WATER LEVEL ADEQUATE AT THIS TIME, WILL CONTINUE TO MONITOR
[2019-02-13 19:49] VITALS: BP 98/65
[2019-02-14] VITALS: BP 107/63
--- NOTE | 2019-02-14 05:27 | NUR ---
BED BATH PT GIVEN BED BATH, SHER CARE AND ALLEN CARE PROVIDED. PARTIAL LINEN CHANGE DONE. PT TOLERATED WELL. PT TOLERATED WELL. VSS AT THIS TIME. BED LOCKED AND IN LOWEST POSITION, SAFETY PRECAUTIONS IN PLACE. WILL CONTINUE WITH CARE.
[2019-02-14] MEDS: IPRATROPIUM BROM 0.5 MG/2.5ML INH SOL NEB SCH ×5 (05:48→22:54)
[2019-02-14] MEDS: ALBUTEROL SULF 2.5 MG/0.5ML(0.5%) NEB SOLN NEB SCH ×5 (05:48→22:54)
[2019-02-14] MEDS: CLINDAMYCIN 300MG IV 50 ML IV SCH (06:00)
[2019-02-14 08:00] VITALS: BP 122/56
--- NOTE | 2019-02-14 09:23 | NUR ---
Pt unable to sign due to aloc and no use of extremties to sign.
[2019-02-14] MEDS: FERROUS SULFATE 300 MG/5 ML ORAL LIQ GT SCH ×2 (09:31→21:55)
[2019-02-14] MEDS: LEVOFLOXACIN 750MG 150 ML IV SCH (09:31)
[2019-02-14] MEDS: BUDESONIDE (INHALATION) 0.5 MG/2 ML NEB NEB SCH ×2 (09:51→18:15)
--- NOTE | 2019-02-14 10:13 | NUR ---
RT NOTE: TRACH CARE PER FORMED BY STERILE PROCEDURE WITHOUT INCIDENT. INNER CANNULA AND DRAIN SPONGE CHANGED. NO REDNESS OR SKIN BREAKDOWN NOTED AROUND STOMA SITE. DRAIN BAG EMPTIED. WATER FOR COOL MIST AEROSOL ADEQUATE. PT. SUNCTIONED TWICE FOR SMALL, THIN, CLEAR SECRETIONS. GAG/COUGH NOTED. EXTRA TRACH SIZE 4 AND 6 AT BEDSIDE WELL BVM WITH O2 SOURCE.
--- NOTE | 2019-02-14 10:15 | NUR ---
Couldn't Flush PEG with water, machine alarm occlusion, hold tube feeding at this time, will call MD to make aware and further order/treatment.
--- NOTE | 2019-02-14 11:15 | NUR ---
Paged Dr. Kate to make aware about the sensitivity for sputum culture result and make aware about couldn't flush water, hold tube feeding at this time. Will wait MD to call back.
[2019-02-14 11:47] VITALS: BP 128/66
--- NOTE | 2019-02-14 11:47 | NUR ---
Received new order for Antibiotic, D/C previous antibiotic and start Meropenem 1 gm iv q 8 hours for pneumonia and UTI.
--- NOTE | 2019-02-14 12:01 | NUR ---
NUTRITION CONSULT/ASSESSMENT NOTES Please refer to link notes of nutrition screen form filed under the intervention section of the plan of care for further details. Est. Needs: 1450 kcal to 1800 kcal (25-30 kcal/kgBW), 57 gms to 72 gms pro (0.8-1.0 gms/kgBW). Will continue to monitor pertinent labs and reassess nutrient need prn Thank you for this consult. Addendum: 02/14/19 at [address] Amended: Links added.
[2019-02-14] MEDS ORDERED: acetaZOLAMIDE SODIUM 500 MG VL IV ONE (14:00)
--- NOTE | 2019-02-14 14:00 | NUR ---
Position changed, mouth care provided. Try to flush PEG again but couldn't get it through. made aware. No new order at this time.
[2019-02-14] MEDS: MEROPENEM 1GM IVPB 100 ML IV SCH ×2 (14:07→21:55)
--- NOTE | 2019-02-14 14:10 | NUR ---
RT NOTE: DRAIN SPONGE CHANGED AND DRAIN BAG EMPTIED WITHOUT INCIDENT. SUCTION X2 FOR SMALL, THIN, WHITE SECRETIONS.
[2019-02-14 15:47] VITALS: BP 105/59
--- NOTE | 2019-02-14 15:53 | NUR ---
PEG still unable to flush, Dr. Kate made aware, received order for GI consult for changing PEG/PEG management. Will call her mother to make aware and get a consent from her.
--- NOTE | 2019-02-14 19:15 | NUR ---
OPENING SHIFT RECEIVED REPORT FROM DAY SHIFT RN. ASSUMED CARE OF PATIENT. PATIENT IN BED RESTING AND WATCHING TV WITH NO SIGNS OR SYMPTOMS OF SOB, PAIN OR DISTRESS. CURRENTLY ON 8L 02 TRACH 30%, 02 SAT - 97%. PEG TUBE - CLOGGED, UNABLE TO FLUSH WITH AIR. ALLEN HUNG TO GRAVITY ON BED RAIL. LEFT FOREARM IV - CLEAN/DRY/INTACT. REPOSITIONED FOR COMFORT. BED IN LOWEST POSITION, SIDE RAILS UP X2, CALL LIGHT WITHIN REACH. WILL CONTINUE TO MONITOR.
[2019-02-14 19:56] VITALS: BP 109/47
[2019-02-14 21:34] VITALS: BP 109/47
--- NOTE | 2019-02-14 21:48 | NUR ---
AUSCULTATED WITH 10 CC OF AIR AND FLUSHED PEG TUBE WITH 10 CC OF WARM WATER WITHOUT RESISTANCE. WILL CONTINUE TO MONITOR.
[2019-02-15] VITALS: BP 109/58
--- NOTE | 2019-02-15 00:14 | NUR ---
ROUNDS PATIENT IN BED SLEEPING WITH NO SIGNS OF SOB, PAIN OR DISTRESS. CURRENTLY ON 8L 02 30% VIA TRACH. 02 SAT - 100%. SUCTIONED TRACH. REPOSITIONED FOR COMFORT. PEG TUBE PATENT. BED IN LOWEST POSITION, SIDE RAILS UP X2, CALL LIGHT WITHIN REACH. WILL CONTINUE TO MONITOR.
--- NOTE | 2019-02-15 03:40 | NUR ---
MORNING CARE PERFORMED MORNING CARE WITH CHG WIPES AND WASH CLOTHS TO THE FACE. PARTIAL LINEN CHANGE AND GOWN CHANGED. REPOSITIONED FOR COMFORT. PATIENT TOLERATED WELL. WILL CONTINUE TO MONITOR. Addendum: 02/15/19 at 0432 by DAMIEN ELMORE RN RN BED IN LOWEST POSITION, SIDE RAILS UP X2, CALL LIGHT WITHIN REACH.
[2019-02-15 04:00] VITALS: BP 116/58
[2019-02-15 05:28] LABS: Albumin 3.1 g/dL (3.4-5.0); BUN/Creatinine Ratio 29.5; Calcium 10.1 mg/dL (8.5-10.1); Potassium 3.7 mmol/L (3.5-5.1)
[2019-02-15 05:30] LABS: Bilirubin, Total 0.2 mg/dL (0.2-1.0); Total Protein 6.9 g/dL (6.4-8.2)
[2019-02-15] MEDS: BUDESONIDE (INHALATION) 0.5 MG/2 ML NEB NEB SCH ×2 (05:32→18:59)
[2019-02-15] MEDS: IPRATROPIUM BROM 0.5 MG/2.5ML INH SOL NEB SCH ×5 (05:32→22:19)
[2019-02-15] MEDS: ALBUTEROL SULF 2.5 MG/0.5ML(0.5%) NEB SOLN NEB SCH ×5 (05:32→22:19)
[2019-02-15] MEDS: MEROPENEM 1GM IVPB 100 ML IV SCH ×3 (05:47→22:51)
--- NOTE | 2019-02-15 06:33 | NUR ---
END OF SHIFT PATIENT IN BED SLEEPING WITH NO SIGNS OR SYMPTOMS OF SOB, PAIN OR DISTRESS. CURRENTLY ON 8L 02 30% VIA TRACH, 02 SAT - 100%. ALLEN HUNG TO GRAVITY ON BED RAIL. LEFT FOREARM IV - CLEAN/DRY/INTACT. PEG TUBE PATENT AND FLUSHED WITH NO RESISTANCE. REPOSITIONED FOR COMFORT. BED IN LOWEST POSITION, SIDE RAILS UP X2, CALL LIGHT WITHIN REACH. WILL ENDORSE CARE TO DAY SHIFT RN.
--- NOTE | 2019-02-15 07:09 | NUR ---
PEG is working, will cancel GI consult for this time.
--- NOTE | 2019-02-15 10:14 | NUR ---
RT NOTE: TRACH CARE PER FORMED BY STERILE TECHNIQUE WITHOUT INCIDENT. INNER CANNULA AND DRAIN SPONGE CHANGED. NO REDNESS OR SKIN BREAKDOWN NOTED AROUND STOMA SITE, WATER LEVEL ADEQUATE, DRAIN BAG EMPTIED, EXTRA TRACH SIZE 4 AND 6 AT BEDSIDE WELL BVM WITH O2 SOURCE. WILL CONTINUE TO MONITOR PT.
--- NOTE | 2019-02-15 11:00 | NUR ---
Dr. Kate at the bedside, MD made aware that PEG is working and will D/C GI consult at this time.
--- NOTE | 2019-02-15 11:30 | NUR ---
Dr. Savage at the bedside, seen and examined patient at this time, MD made aware that PEG is working, will continue to monitor, no new orders at this time.
[2019-02-15] MEDS: FERROUS SULFATE 300 MG/5 ML ORAL LIQ GT SCH ×2 (11:51→22:51)
--- NOTE | 2019-02-15 12:30 | NUR ---
Position changed, mouth care provided, also suction to clear airway as well at this time.
[2019-02-15] MEDS ORDERED: POTASSIUM EFFERVESENT TAB 25 MEQ GT ONE (14:00)
[2019-02-15] MEDS ORDERED: acetaZOLAMIDE SODIUM 500 MG VL IV ONE (14:00)
[2019-02-15] MEDS ORDERED: D5W/SOD CHL 0.2% 1,000 ML IV ONE (14:00)
--- NOTE | 2019-02-15 15:00 | NUR ---
Position changed, suction clear air way almost every 1 hour. O2 saturation 99-100%, decreased FiO2 from 0.35 to 0.3. Will continue to monitor and care.
[2019-02-15 15:24] VITALS: BP 134/74
[2019-02-15] MEDS: ACETAMINOPHEN 500 MG TAB PO PRN (17:43)
--- NOTE | 2019-02-15 22:10 | NUR ---
TRACH CARE PREFORMED AT THIS TIME. PT TOLERATED WELL. INNER CANNULA CHANGED. COOL AEROSOL BOTTLE CHANGED AND DRAINAGE BAG EMPTIED. INLINE MED NEB GIVEN. PT ETS FOR LARGE AMOUNTS OF THICK WHITE/ CLEAR SECRETIONS. WILL CONTINUE TO MONITOR.
[2019-02-16] VITALS: BP 126/66
--- NOTE | 2019-02-16 03:45 | NUR ---
Pt has remained stable throughout this shift. No signs or symptoms of distress or pain, will continue to monitor.
[2019-02-16 04:00] VITALS: BP 112/62
[2019-02-16] MEDS: MEROPENEM 1GM IVPB 100 ML IV SCH ×3 (06:24→22:00)
[2019-02-16 06:51] LABS: BUN/Creatinine Ratio 34.5; Calcium 10.2 mg/dL (8.5-10.1); Potassium 4.3 mmol/L (3.5-5.1)
[2019-02-16] MEDS: IPRATROPIUM BROM 0.5 MG/2.5ML INH SOL NEB SCH ×5 (07:23→22:43)
[2019-02-16] MEDS: BUDESONIDE (INHALATION) 0.5 MG/2 ML NEB NEB SCH ×2 (07:23→22:43)
[2019-02-16] MEDS: ALBUTEROL SULF 2.5 MG/0.5ML(0.5%) NEB SOLN NEB SCH ×5 (07:23→22:43)
[2019-02-16 08:00] VITALS: BP 115/64
--- NOTE | 2019-02-16 08:00 | NUR ---
Opening Shift Note Assumed care of patient, laying in bed, eyes closed, arousable to voice, oriented to self, non-verbal. Glucerna running at 30ml/hr via PEG, patient tolerating well, no residuals noted. No S/S of distress/SOB or pain. Patient on 6LPM oxygen via trache collar, 28% FIO2, saturation 99%. Bed locked on low position, side rails up x2, bed alarms on at all times, will continue to monitor for changes Q1hr and PRN.
[2019-02-16] MEDS: FERROUS SULFATE 300 MG/5 ML ORAL LIQ GT SCH ×2 (10:23→22:00)
--- NOTE | 2019-02-16 11:10 | NUR ---
Patient vomited around 100ml of brown vomitus. Tube feeding held. Patient given partial bath. Skin integrity assessed for any changes. Linens and patient's gown changed. Patient repositioned for comfort. Will continue to monitor and re-start feeding as tolerated.
--- NOTE | 2019-02-16 11:15 | NUR ---
oral care done
[2019-02-16 11:58] VITALS: BP 142/77
--- NOTE | 2019-02-16 12:19 | NUR ---
Nutrition Follow-up Notes Wt.: 71.5 kg Pt's on trach, in isolation room, no immediate family member at bedside when rounded this morning. Pt's currently on NPO with EN support temporarily held this morning d/t vomiting per RN. Pt's previously on EN support of Glucerna 1.2 Michel @ 30 ml/hr providing 864 kcal, 73 gms pro and 580 ml free water, tolerates well per RN. RN informed of diet rec per MD approval Est. Needs: 1450 kcal to 1800 kcal (25-30 kcal/kgBW), 57 gms to 72 gms pro (0.8-1.0 gms/kgBW). Will continue to monitor pertinent labs and reassess nutrient need prn Labs: BUN 19 H, CA 10.2 H, GLU 194 H, ALB 3.1 L. Skin: Emmett scale 12, high risk,scab to calf per dictating machine typist. GI: Pt has no bowel activity reported per dictating machine typist. PES: Altered nutrition related lab values r/t acute/chronic medical condition aeb hyperglycemia, elev. BUN,ALP, Mg, hypocalcemia and mild hypoalbuminemia Increase nutrient needs r.t current medical condition aeb on vent via trach, NPO with EN support via PEG tube, mild hypoalbuminemia. Will continue to monitor NPO status, EN tolerance, skin status, pertinent labs and weight trend. F/u in 2 to 3 days. Rec.: 1.) If still NPO, consider to resume EN support of Glucerna 1.2 Michel @ 60 ml/hr goal rate as tolerated when medically appropriate. 2.) If Albumin level continues trending down, consider Prostat 1 pkt BID. 3.) Consider daily MVI with minerals and Asc acid 500 mgs BID prn.4.) Refer pt to CDE/RD for further nutrition education and weight monitoring upon discharge. 5.) Continue current plan of care.
--- NOTE | 2019-02-16 13:07 | NUR ---
No vomiting noted since 1110 this morning. Re-started feeding at 10ml/hr, will increase as tolerated.
--- NOTE | 2019-02-16 13:58 | NUR ---
Patient vomited brown vomitus around 10ml, tube feeding held at this time. Will continue to monitor.
--- NOTE | 2019-02-16 14:00 | NUR ---
Oral care done
--- NOTE | 2019-02-16 15:52 | NUR ---
No vomiting noted since 1357, re-started feeding at 10ml/hr with strict aspiration precaution. Will continue to monitor.
[2019-02-16] MEDS: ONDANSETRON HCL 4 MG/2 ML VIAL IV PRN (15:56)
[2019-02-16 16:00] VITALS: BP 132/68
--- NOTE | 2019-02-16 18:00 | NUR ---
Patient tolerating tube feeding at 10ml/hr, will continue to monitor and increased as tolerated.
[2019-02-16 20:00] VITALS: BP 100/64
--- NOTE | 2019-02-16 20:00 | NUR ---
Opening Shift Note Assumed care of patient, awake, aphasic, able to track with eyes and when asked to squeeze hands patient is able to follow commands. Trach collar in place at 6L with 28% fio2, coarse and very diminished lung sounds noted. Moist cough, patient deep suctioned and moderate/large amounts of green/campbell thick secretions noted. Residual checked on left upper abd with no residual noted, glucerna feedings at 10cc/hr.Aspiration and fall precautions in place. Patient turned , optifoam in place for preventative and sacrum with mild blanchable redness.No S/S of distress/SOB or pain. Instructed on POC. Will continue to monitor frequently.
--- NOTE | 2019-02-16 22:12 | NUR ---
PATIENT COUGHED AND NOTED TO HAVE FEEDINGS COMING OUT OF BILATERAL NARES PATIENT HIGH VALENTIN'S POSITION ,FEEDINGS STOPPED , SUCTIONED PATIENT AND CLEANED PATIENT WITH WET WASH CLOTH CONTINUE TO MONITOR.
[2019-02-17] VITALS (7 sets, daily range): BP systolic 100–133; BP diastolic 65–75
[2019-02-17] MEDS: ONDANSETRON HCL 4 MG/2 ML VIAL IV PRN (04:04)
--- NOTE | 2019-02-17 04:30 | NUR ---
PATIENT FOUND WITH BOUT OF EMESIS , SITTING UP HIGH FOWLERS. SUCTIONED AND CLEANED. CONTINUE TO MONITOR . FEEDINGS HAVE BEEN STOPPED: SEE NOTES.
--- NOTE | 2019-02-17 04:50 | NUR ---
AM CARE COMPLETE BED BATH GIVEN USING CHG WIPES AND WARM WASH CLOTHS. COMPLETE LINEN CHANGE DONE, NEW GOWN PLACED ON PATIENT. SKIN INTEGRITY REASSESSED: PERINEAL AREA WITH REDNESS, CLEANSED PATTED DRY AND Z GUARD BARRIER CREAM APPLIED. SACRUM WITH BLANCHABLE REDNESS, OPTIFOAM PLACED FOR PREVENTATIVE. PATIENT REPOSITIONED IN BED FOR COMFORT WITH BILATERAL HEELS ELEVATED ON PILLOW. ASPIRATION PRECAUTIONS CONTINUED. FEEDINGS CONTINUE TO BE ON HOLD. CONTINUE TO MONITOR.
[2019-02-17] MEDS: MEROPENEM 1GM IVPB 100 ML IV SCH ×3 (05:24→22:00)
[2019-02-17] MEDS: ALBUTEROL SULF 2.5 MG/0.5ML(0.5%) NEB SOLN NEB SCH ×5 (07:27→22:12)
[2019-02-17] MEDS: IPRATROPIUM BROM 0.5 MG/2.5ML INH SOL NEB SCH ×5 (07:27→22:12)
--- NOTE | 2019-02-17 08:00 | NUR ---
Opening Shift Note Assumed care of patient, laying in bed, tracks, follows simple commands, aphasic. No S/S of distress/SOB or pain. Tube feeding off, patient vomited at 0400 this morning per report. Awaiting BMP report. Will call Dr Kate for alternate nutrition and stool softener once this RN gets BMP report. Bed locked on low position, side rails up x2, bed alarms on at all times, will continue to monitor for changes Q1hr and PRN.
[2019-02-17] MEDS: FERROUS SULFATE 300 MG/5 ML ORAL LIQ GT SCH ×2 (09:19→22:00)
--- NOTE | 2019-02-17 10:05 | NUR ---
BMP report still pending.
[2019-02-17 10:22] LABS: Calcium 10.2 mg/dL (8.5-10.1); Potassium 3.7 mmol/L (3.5-5.1)
[2019-02-17 10:25] LABS: BUN/Creatinine Ratio 32.8
--- NOTE | 2019-02-17 10:34 | NUR ---
Paged Dr Kate stating patient not tolerating tube feeding and throwing up. Awaiting call back.
[2019-02-17] MEDS: BUDESONIDE (INHALATION) 0.5 MG/2 ML NEB NEB SCH ×2 (11:28→22:12)
--- NOTE | 2019-02-17 11:52 | NUR ---
Re-paged Dr Kate stating patient not tolerating feeding and vomiting. Awaiting call back.
--- NOTE | 2019-02-17 12:00 | NUR ---
IV removal IV on LT AC puffy, discontinued with sterile technique, catheter fully intact. Pressure dressing applied to site. Patient tolerated procedure well. Patient hard stick, plan to insert midline.
--- NOTE | 2019-02-17 12:16 | NUR ---
Paged Dr Kate and called back, updated on patient's status. Informed patient not tolerating tube feeding, has been on and on feeding due to vomiting, MD verbalized understanding. Received telephone order to hold feeding for 24 hours. Received telephone order for midline. Telephone orders read back and verified. Will carry out.
[2019-02-17] MEDS ORDERED: SODIUM CHLORIDE 0.9% 1,000 ML IV ONE (12:30)
[2019-02-17 12:50] LABS: Basophils # (auto) 0.1 uL; Basophils % (auto) 0.7 % (0.0-2.0); Eosinophils # (auto) 0 uL; Eosinophils % (auto) 0.3 % (0.0-7.0); Hematocrit 42.2 % (36.0-46.0); Hemoglobin 13.9 g/dL (12.2-16.2); Lymphocytes # (auto) 1.1 uL; Lymphocytes % (auto) 10.5 % (10.0-50.0); Mean Corpuscular Hemoglobin 29.7 pg (28.0-32.0); Mean Corpuscular Hgb Conc. 32.9 g/dL (32.0-36.0); Mean Corpuscular Volume 90.2 fL (80.0-100.0); Monocytes # (auto) 0.5 uL; Neutrophils # (auto) 8.7 uL; Neutrophils % (auto) 83.5 % (37.0-80.0); Platelet Count (auto) 181 10^3/uL (140-450); Red Blood Cells 4.68 10^6/uL (4.0-5.20); Red Cell Distribution Width 15.3 % (11.8-14.3); White Blood Cell 10.4 10^3/uL (4.4-10.8)
[2019-02-17 12:57] LABS: Alanine Aminotransferase 32 U/L (13-56); Albumin 3.1 g/dL (3.4-5.0); Aspartate Aminotransferase 25 U/L (15-37); Bilirubin, Direct < 0.1 mg/dL (0-0.2)
[2019-02-17 12:59] LABS: Alkaline Phosphatase 113 U/L (45-117); Bilirubin, Total 0.3 mg/dL (0.2-1.0); Total Protein 7.1 g/dL (6.4-8.2)
--- NOTE | 2019-02-17 13:45 | NUR ---
Patient saturation dropped between 84% and 88%, tracheal suctioning done with moderate amount of clear secretion's. Patient re-positioned to high noland's. Increased oxygen to 8LPM and FIO2 to 38% per instruction from Maribell REYNA. Johnna REYNA came to bed to further assess patient. Will continue to monitor.
--- NOTE | 2019-02-17 13:48 | NUR ---
TRACH SUCTION DONE FOR LARGE AMOUNT OF PALE SECRETION. PT IS AWAKE AND ALERT. PT ON HIGH FOWLERS. BS ARE INSPIRATORY RHONCHI TO AUSCULTATION, SKIN IS DRY AND WARM TO THE TOUCH. PT TOLERATED WELL. PT ON 30% COOL MYST VIA TRACH AEROSOL MASK. WILL CONTINUE TO MONITOR PT.
--- NOTE | 2019-02-17 15:00 | NUR ---
Unable to administer IV fluid and Meropenem, awaiting midline insertion.
--- NOTE | 2019-02-17 15:00 | NUR ---
PEG tube flushed without resistance, oral care done, patient tolerated well.
--- NOTE | 2019-02-17 15:48 | NUR ---
Paged Dr Kate stating patient's last BM 02/11 and KUB xray showed large ball of stool in the rectum. Awaiting call back.
--- NOTE | 2019-02-17 19:10 | NUR ---
Midline Placement: Patient educated on need for midline placement. All risks and benefits explained and all questions and concerns addresses prior to procedure. 18g/10cm midline inserted via left basilic vein using Ultrasound. Sterile technique utilized. Blood return obtained from single lumen and flushed easily with NS using proper technique. Midline secured with saline lock; biodisc and occlusive dressing applied. Primary RN notified. Midline lot #[id number].
--- NOTE | 2019-02-17 22:30 | NUR ---
Respiratory note: PT CHANGED FROM TRACH COLLAR TO T-PIECE. PT REQUIRING FREQUENT SUCTIONING. PT REMAINS ON 28% COOL AEROSOL. WILL CONTINUE TO MONITOR.
--- NOTE | 2019-02-17 23:29 | NUR ---
Pt stable at this time. Pt actually nodded in response to asking if she is ok? Deep suctioning performed. Thick campbell mucus noted. Will continue to monitor.
[2019-02-18] VITALS: BP 129/66
--- NOTE | 2019-02-18 02:40 | NUR ---
Respiratory note: TRACH CARE DONE, UNEVENTFUL. PT TOLERATED WELL. GAUZE CHANGED, AREA AROUND THE STOMA CLEANED, NO REDNESS NOTED. PT SUCTIONED, MODERATE THIN PALE YELLOW SECRETIONS NOTED. WILL CONTINUE TO MONITOR.
[2019-02-18 06:00] VITALS: BP 110/72
[2019-02-18] MEDS: IPRATROPIUM BROM 0.5 MG/2.5ML INH SOL NEB SCH ×5 (06:17→22:36)
[2019-02-18] MEDS: ALBUTEROL SULF 2.5 MG/0.5ML(0.5%) NEB SOLN NEB SCH ×5 (06:17→22:36)
[2019-02-18] MEDS: MEROPENEM 1GM IVPB 100 ML IV SCH ×2 (07:03→14:20)
--- NOTE | 2019-02-18 07:30 | NUR ---
RECEIVED PATIENT SITTING UP IN THE BED, O2 BY THE TRACH COLLAR 28% FIO2, SIZE 6 TRACHE, ALLEN TO GRAVITY, SCD'S TO ERNESTINE LEGS, PEG TUBE TO THE ABD NOT BEING USED, PATIENT IS NPO, NO VERBAL RESPONSE WHEN I TALK TO HER, MIDLINE TO THE NATHAN WITH ANTIBIOTICS INFUSING BY THE IV PUMP, NO SIGNS OF PAIN
[2019-02-18 08:00] VITALS: BP 111/66
--- NOTE | 2019-02-18 08:00 | NUR ---
NO VERBAL RESPONSE WHEN TALKING TO THE PATIENT, JUST LOOKS AT YOU
--- NOTE | 2019-02-18 09:10 | NUR ---
ROM BEING DONE BY PT
[2019-02-18] MEDS: FERROUS SULFATE 300 MG/5 ML ORAL LIQ GT SCH ×2 (10:00→22:00)
--- NOTE | 2019-02-18 10:00 | NUR ---
MEDS HELD, PATIENT TO GET IRON WHICH CAN CAUSE CONSTIPATION
[2019-02-18] MEDS: BUDESONIDE (INHALATION) 0.5 MG/2 ML NEB NEB SCH ×2 (10:17→22:36)
--- NOTE | 2019-02-18 11:00 | NUR ---
SITTING UP IN BED WITH EYES CLOSED NO CHANGE IN CONDITION
[2019-02-18 12:00] VITALS: BP 117/66
--- NOTE | 2019-02-18 12:00 | NUR ---
NO FEEDING STARTED AND NO BM
--- NOTE | 2019-02-18 13:10 | NUR ---
PATIENT DOESN'T TALK JUST LOOKS AT ME WHEN I TALK TO HER, HASN'T HAD A BM
[2019-02-18] MEDS ORDERED: MAGNESIUM CITRATE SOLUTION 300 ML BTL GT ONE (13:45)
--- NOTE | 2019-02-18 14:10 | NUR ---
DR WARD INTO SEE THE PATIENT AND STATED TO START THE FEEDING AT 15ML/HR AFTER THE MAG CITRATE WAS GIVEN
--- NOTE | 2019-02-18 15:10 | NUR ---
TRACH CARE BEING DONE BY RT
--- NOTE | 2019-02-18 15:14 | NUR ---
Nutrition Follow-up Notes Wt.: 71.6 kg Pt's on trach, in isolation room, no immediate family member at bedside when rounded this morning. Pt's no signs of distress noted earlier, currently on NPO with EN support temporarily held at this time, per nursing. Pt's previously on EN support of Glucerna 1.2 Michel @ 30 ml/hr providing 864 kcal, 73 gms pro and 580 ml free water. Est. Needs: 1450 kcal to 1800 kcal (25-30 kcal/kgBW), 57 gms to 72 gms pro (0.8-1.0 gms/kgBW). Will continue to monitor pertinent labs and reassess nutrient need prn Labs: No new labs today 02/17/19 Gluc 161 H, Na 147 H, Cl 112 H, BUN 19 H, Ca 10.2 H, Alb 3.1 L. Skin: Emmett scale 12, high risk,scab to calf per roustabout hand. GI: Pt has no bowel activity since 02/11/19, noted KUB xray showed large ball of stool in the rectum per roustabout hand. PES: Altered nutrition related lab values r/t acute/chronic medical condition aeb hyperglycemia, elev. BUN,ALP, Mg, hypocalcemia and mild hypoalbuminemia Increase nutrient needs r/t current medical condition aeb on vent via trach, NPO with EN support via PEG tube, mild hypoalbuminemia. Will continue to monitor NPO status, skin status, pertinent labs and weight trend. F/u in 2 to 3 days. Rec.: 1.) If still NPO, consider to resume EN support of Glucerna 1.2 Michel @ 60 ml/hr goal rate as tolerated when medically appropriate. 2.) If Albumin level continues trending down, consider Prostat 1 pkt BID. 3.) Consider daily MVI with minerals and Asc acid 500 mgs BID prn.4.) Refer pt's family to CDE/RD for further nutrition education and weight monitoring upon discharge. 5.) Continue current plan of care.
--- NOTE | 2019-02-18 15:20 | NUR ---
HALF OF THE BOTTLE OF MAG CITRATE GIVEN TO PREVENT THE PATIENT FROM VOMITING, WILL GIVE THE OTHER HALF IN 1 HOUR
--- NOTE | 2019-02-18 15:54 | NUR ---
EYE CLOSED SITTING UP IN THE BED
[2019-02-18 16:00] VITALS: BP 107/72
--- NOTE | 2019-02-18 16:29 | NUR ---
MOM CALLED TO INQUIRE ABOUT THE PATIENT
--- NOTE | 2019-02-18 17:15 | NUR ---
GAVE THE REST OF THE MAG CITRATE AND STARTED THE GLUCERNA AT 15ML/HR BY THE FEEDING PUMP,
--- NOTE | 2019-02-18 18:35 | NUR ---
BREATHING TREATMENT BEING GIVEN, EYES ARE OPEN AND SHOOK HEAD NO WHEN ASK IF SHE WAS IN PAIN, ALLEN TO GRAVITY, SCD'S TO ERNESTINE LEGS, O2 BY THE TRACH COLLAR, ADRYAN Sloan A SIZE 6 TRACH TO THE NECK, MIDLINE TO THE NATHAN INTACT AND PATENT NS TO TKO, WILL CONTINUE TO MONITOR AND HISTORICAL INTERPRETER REPORT TO THE NEXT SHIFT
--- NOTE | 2019-02-19 04:29 | NUR ---
Pt has remained stable this shift. Stated she was hot, cool cloth offered as well as cooling room. SCD's removed for break and coolness. No BM as of this time. Pt was rubbing tummy earlier in shift. But is now resting comfortably and seems to be tolerating feeding at 15ml/hr. No S/S of distress. Will continue to monitor.
[2019-02-19] MEDS: ALBUTEROL SULF 2.5 MG/0.5ML(0.5%) NEB SOLN NEB SCH ×5 (05:57→22:57)
[2019-02-19] MEDS: IPRATROPIUM BROM 0.5 MG/2.5ML INH SOL NEB SCH ×5 (05:57→22:57)
[2019-02-19] MEDS: MEROPENEM 1GM IVPB 100 ML IV SCH ×3 (06:47→21:50)
--- NOTE | 2019-02-19 07:30 | NUR ---
RECEIVED PATIENT SITTING UP IN THE BED, NO VERBAL RESPONSE, JUST LOOKS AT ME WHEN I CALL HER NAME, O2 BY THE T-PIECE TO THE TRACH SIZE 6, MIDLINE TO THE NATHAN WITH NS AT TKO, ALLEN TO GRAVITY, SCD'S OFF AT THIS TIME, PEG TUBE TO THE NATHAN WITH GLUCERNA AT 15ML/HR INFUSING BY THE FEEDING PUMP,
[2019-02-19 07:50] VITALS: BP 141/78
--- NOTE | 2019-02-19 08:30 | NUR ---
HAS SWELLING TO THE RT ARM WHICH WAS PLACED UP ON A PILLOW
[2019-02-19] MEDS: FERROUS SULFATE 300 MG/5 ML ORAL LIQ GT SCH ×2 (09:37→21:50)
[2019-02-19 09:40] LABS: Basophils # (auto) 0 uL; Basophils % (auto) 0.4 % (0.0-2.0); Eosinophils # (auto) 0.2 uL; Eosinophils % (auto) 2.4 % (0.0-7.0); Hemoglobin 12.1 g/dL (12.2-16.2); Lymphocytes # (auto) 0.9 uL; Lymphocytes % (auto) 12.8 % (10.0-50.0); Mean Corpuscular Hemoglobin 29.1 pg (28.0-32.0); Mean Corpuscular Hgb Conc. 32.8 g/dL (32.0-36.0); Mean Corpuscular Volume 88.8 fL (80.0-100.0); Monocytes # (auto) 0.3 uL; Monocytes % (auto) 4.8 % (0.0-12.0); Neutrophils # (auto) 5.7 uL; Neutrophils % (auto) 79.6 % (37.0-80.0); Platelet Count (auto) 164 10^3/uL (140-450); Red Blood Cells 4.16 10^6/uL (4.0-5.20); Red Cell Distribution Width 14.5 % (11.8-14.3); White Blood Cell 7.1 10^3/uL (4.4-10.8)
--- NOTE | 2019-02-19 09:45 | NUR ---
NO IRON GIVEN THIS MORNING DUE TO PATIENT NOT HAVING A BM
[2019-02-19] MEDS: BUDESONIDE (INHALATION) 0.5 MG/2 ML NEB NEB SCH ×2 (10:00→22:57)
[2019-02-19 10:05] LABS: BUN/Creatinine Ratio 42.4; Calcium 9.2 mg/dL (8.5-10.1); Potassium 3.3 mmol/L (3.5-5.1)
--- NOTE | 2019-02-19 10:10 | NUR ---
WOUND CARE NOTE: IN TO SEE PATIENT AT THIS TIME FOR SKIN INTEGRITY MONITORING. PATIENT HAS CURRENT ANTON SCORE OF 12. SHE IS VENT DEPENDANT, NON VERBAL. PATIENT IS MAX ASSIST FOR TURNING/PREPOSITIONING. SHE IS NOTED TO HAVE AN INTERTRIGINOUS RASH TO PERINEUM, UPPER MEDIAL THIGHS, PERIANAL SKIN. APPLIED ANTIFUNGAL CLEAR OINTMENT. WOUND PHOTO TAKEN AT THIS TIME FOR REFERENCE. NO OTHER SKIN INTEGRITY ISSUES SEEN AT THIS TIME. RECOMMEND: CHANGE FROM MOISTURE BARRIER CREAM TO ANTIFUNGAL CLEAR BARRIER FILM, CONTINUATION WITH ALL OTHER WOUND CARE ORDERS PREVIOUSLY PRESCRIBED BY MD. WOUND CARE TEAM WILL CONTINUE TO MONITOR. Addendum: 02/19/19 at 1635 by Brittany Mcconnell RN Amended: Links added.
--- NOTE | 2019-02-19 10:15 | NUR ---
WOUND CARE NURSE HEATH IN TO EVALUATE PATIENT AND PLACED A NEW OPTIFOAM TO THE SACRUM
--- NOTE | 2019-02-19 10:45 | NUR ---
MOM IN TO VISIT WITH THE PATIENT
--- NOTE | 2019-02-19 11:44 | NUR ---
MOISTEN PATIENT'S MOUTH WITH LEMON SWABS PATIETN KEEP MOUTH OPEN ALL OF THE TIME
[2019-02-19 11:50] VITALS: BP 113/67
--- NOTE | 2019-02-19 12:30 | NUR ---
MOM LEFT AND WENT HOME
--- NOTE | 2019-02-19 13:40 | NUR ---
PT'S O2 READING CHANGED FROM 95% TO 100% AFTER COPIOUS AMOUNT OF THICK WHITE SECRETIONS SUCTIONED. KEEP ON REMINDING PT NOT TO BEND HER LEFT ARM WHICH CAUSES THE PRESSURE ALARM ON IV PUMP TO GO OFF. Signed: 02/19/19 at 1421 by CASS LOUIS <Co-Signature Required> Co-Signed: 02/19/19 at 1421 by Hazel May RN
--- NOTE | 2019-02-19 14:00 | NUR ---
oral care done
--- NOTE | 2019-02-19 14:22 | NUR ---
breathing treatment being given by rt
--- NOTE | 2019-02-19 14:23 | NUR ---
PATIENT HAS NO HAD A BM
--- NOTE | 2019-02-19 15:21 | NUR ---
TRACH CARE BEING DONE BY RT
[2019-02-19 16:00] VITALS: BP 126/64
--- NOTE | 2019-02-19 16:15 | NUR ---
SITTING UP IN BED WITH EYES OPEN LOOKING TOWARD THE TV, NO DISTRESS NOTED
--- NOTE | 2019-02-19 16:20 | NUR ---
TRACH SUCTION AND REMOVED THICK MOD AMOUNT OF WHITISH SECRETIONS
--- NOTE | 2019-02-19 16:58 | NUR ---
CALLED DR WARD BUT UNABLE TO REACH ON HIS CELL PHONE
--- NOTE | 2019-02-19 17:02 | NUR ---
PATIENT STILL HAS NOT HAD BM
--- NOTE | 2019-02-19 17:21 | NUR ---
TEXT DR WARD AND STATED TO GIVEN ENEMA FOR THE CONSTIPATION AND POTASSIUM 40MEQ IV FOR K LEVEL OF 3.3
--- NOTE | 2019-02-19 17:40 | NUR ---
PATIENT O2 SAT DROPPING TO 77%, SUCTIONED PATIENT AND REMOVED MODERATE AMOUNT OF THICK SECRETIONS, NOTIFIED RT AND THEY SUCTIONED THE PATIENT, O2 SAT BACK UP TO 100%
[2019-02-19] MEDS: POTASSIUM CHL 20MEQ/100ML 100 ML IV SCH ×2 (17:42→19:40)
--- NOTE | 2019-02-19 18:20 | NUR ---
O2 SAT STILL AT 100% GAVE PATIENT 1 ENEMA, AND SHE VOMITED ABOUT 100ML OF BROWN LIQUID WHEN WE TURNED HER, SUCTIONED, IMMEDIATELY BUT NO BROWN SECRETION REMOVED, WHEN SUCTIONED
--- NOTE | 2019-02-19 18:30 | NUR ---
STOPPED THE FEEDING WHILE ENEMAS ARE BEING GIVEN, HAD LARGE BASEBALL SIZE BM AND GOLF BALL SIZE, BOTH HARD AND ALSO HAD PASTY DARK GREEN IN COLOR, O2 BY THE T-PIECE, SCD'S OFF AT THIS TIME, ALLEN TO GRAVITY,NATHAN MIDLINE WITH POTASSIUM INFUSING AT 50ML/HR AND NS AT 40ML/HR, NO SIGNS OF PAIN, NO VERBAL RESPONSE JUST LOOKS AT YOU WHEN YOU TALK TO HER, WILL CONTINUE TO MONITOR AND GIVE REPORT OT THE NEXT SHIFT
--- NOTE | 2019-02-19 19:35 | NUR ---
Opening Shift Note Assumed care of patient, awake,aphasic , able to track with eyes, VSS:see vs spreadsheet. Patient has been off glucerna feedings due to vomiting during the day, per RN.Residuals checked at this time: none noted, bowel sounds active, abd is round and soft.Perineal area noted to be macerated , zguard barrier cream placed by day shift RN. No S/S of distress/SOB on T-piece at 5L with 28%fio2.No signs of pain. Complete physical assessment done: see interventions. Patient repositioned in bed for comfort. Instructed on POC Will continue to monitor closely.
[2019-02-19 19:48] VITALS: BP 120/65
--- NOTE | 2019-02-19 22:30 | NUR ---
[facility] via gurney on A portable 02. All patient medications and personal belongings transferred with patient to receiving floor. Patient care transferred to Shivani PAIGE. NOTE: No distress or SOB noted upon xfer. Addendum: 02/20/19 at 0408 by Genoveva Hughes RN PLEASE DISREGARD WRONG PATIENT
[2019-02-20] VITALS: BP 108/63
--- NOTE | 2019-02-20 02:45 | NUR ---
Respiratory note: TRACH CARE PERFORMED WITHOUT INCIDENT AT 0245. TRACH SITE CLEANED, NO REDNESS NOTED AT THIS TIME. INNER CANNULA REPLACED ALONG WITH TRACH DRESSING. PLACED NEW FABIANO TRACH TIES PLACED AND SECURED. EXTRA TRACH AND SUPPLIES AT BEDSIDE.
[2019-02-20 04:00] VITALS: BP 101/57
--- NOTE | 2019-02-20 04:30 | NUR ---
Tap H2O enema done, patient tolerated well. Small formed bowel movement noted.
--- NOTE | 2019-02-20 04:45 | NUR ---
AM CARE COMPLETE BED BATH PROVIDED USING CHG WIPES AND WARM WASH CLOTHS. PARTIAL LINEN CHANGE DONE. SKIN REASSESSED AT THIS TIME,CONTINUES TO HAVE MOISTURE ASSOCIATED REDNESS TO PERINEUM, Z-GUARD BARRIER CREAM PLACED. SACRUM REMAINS INTACT, OPTIFOAM PLACED FOR PREVENTATIVE. NEW GOWN PLACED ON PATIENT. REPOSITIONED IN BED FOR COMFORT.ASPIRATION PRECAUTIONS CONTINUED.
--- NOTE | 2019-02-20 05:00 | NUR ---
RESIDUALS FROM PEG TUBE: 60CC NOTED TO BE DARK BROWN IN COLOR FEEDINGS CONTINUE TO BE ON HOLD
[2019-02-20] MEDS: MEROPENEM 1GM IVPB 100 ML IV SCH ×3 (05:26→22:18)
[2019-02-20] MEDS: ALBUTEROL SULF 2.5 MG/0.5ML(0.5%) NEB SOLN NEB SCH ×5 (06:02→23:04)
[2019-02-20] MEDS: IPRATROPIUM BROM 0.5 MG/2.5ML INH SOL NEB SCH ×5 (06:02→23:05)
[2019-02-20 06:29] LABS: Albumin 2.8 g/dL (3.4-5.0); Calcium 9.2 mg/dL (8.5-10.1)
[2019-02-20 06:36] LABS: BUN/Creatinine Ratio 38.5; Bilirubin, Total 0.4 mg/dL (0.2-1.0)
[2019-02-20 06:40] LABS: Basophils # (auto) 0 uL; Basophils % (auto) 0.6 % (0.0-2.0); Eosinophils # (auto) 0.1 uL; Eosinophils % (auto) 0.9 % (0.0-7.0); Hemoglobin 12.1 g/dL (12.2-16.2); Lymphocytes % (auto) 13.5 % (10.0-50.0); Mean Corpuscular Hemoglobin 29.8 pg (28.0-32.0); Mean Corpuscular Hgb Conc. 32.7 g/dL (32.0-36.0); Monocytes # (auto) 0.5 uL; Monocytes % (auto) 6.3 % (0.0-12.0); Neutrophils # (auto) 6.1 uL; Neutrophils % (auto) 78.7 % (37.0-80.0); Platelet Count (auto) 163 10^3/uL (140-450); Red Blood Cells 4.06 10^6/uL (4.0-5.20); White Blood Cell 7.7 10^3/uL (4.4-10.8)
--- NOTE | 2019-02-20 06:56 | NUR ---
END OF SHIFT NOTE PATIENT RESTING IN BED WITH EYES CLOSED NO SIGNS OF ASPIRATION OR SOB HR 83, POX 97%, RR16 REMAINED STABLE THROUGHOUT THE NIGHT WITH TWO EPISODES OF EMESIS, FEEDINGS HAVE BEEN HELD THROUGH OUT THE SHIFT WILL ENDORSE CARE TO DAY SHIFT RN ASPIRATION, FALL AND PRESSURE ULCER PRECAUTIONS CONTINUE
[2019-02-20 07:30] VITALS: BP 117/70
--- NOTE | 2019-02-20 07:30 | NUR ---
Opening Shift Note Assumed care of patient, laying in bed, tracks, follows simple commands. No S/S of distress/SOB or pain. Tube feeding off, patient vomited twice per report from Reinier RN. See interventions for complete assessment. Bed locked on low position, side rails up x2, bed alarms on at all times, will continue to monitor for changes Q1hr and PRN.
[2019-02-20] MEDS: FERROUS SULFATE 300 MG/5 ML ORAL LIQ GT SCH ×2 (09:54→22:18)
--- NOTE | 2019-02-20 10:00 | NUR ---
Iron supplement held, patient has been constipated. No residuals noted, re-started feeding at 10ml/hr, will increase as tolerated. Will continue to monitor.
[2019-02-20] MEDS: BUDESONIDE (INHALATION) 0.5 MG/2 ML NEB NEB SCH ×2 (10:15→23:05)
[2019-02-20 11:50] VITALS: BP 100/62
--- NOTE | 2019-02-20 12:10 | NUR ---
Nutrition Follow-up Notes Wt.: 74.5 kg Pt's on trach, in isolation room, no immediate family member at bedside when rounded this morning. Pt's no signs of distress noted earlier, currently on NPO with EN support temporarily held at this time due to high residuals per nursing. Pt's previously on EN support of Glucerna 1.2 Michel @ 30 ml/hr providing 864 kcal, 73 gms pro and 580 ml free water. Est. Needs: 1450 kcal to 1800 kcal (25-30 kcal/kgBW), 57 gms to 72 gms pro (0.8-1.0 gms/kgBW). Will continue to monitor pertinent labs and reassess nutrient need prn Labs: CO2 33 H, GLU 134 H, ALB 2.8 L. Skin: Emmett scale 11, high risk,scab to calf per track man. GI: Pt had 1 BM yesterday per track man. PES: Altered nutrition related lab values r/t acute/chronic medical condition aeb hyperglycemia, elev. BUN,ALP, Mg, hypocalcemia and mild hypoalbuminemia Increase nutrient needs r/t current medical condition aeb on vent via trach, NPO with EN support via PEG tube, mild hypoalbuminemia. Will continue to monitor NPO status, skin status, pertinent labs and weight trend. F/u in 2 to 3 days. Rec.: 1.) If still NPO, consider to resume EN support of Glucerna 1.2 Michel @ 60 ml/hr goal rate as tolerated when medically appropriate. 2.) If Albumin level continues trending down, consider Prostat 1 pkt BID. 3.) Consider daily MVI with minerals and Asc acid 500 mgs BID prn.4.) Refer pt's family to CDE/RD for further nutrition education and weight monitoring upon discharge. 5.) Continue current plan of care.
--- NOTE | 2019-02-20 13:04 | NUR ---
Came back from lunch. Per ICU/LUCIANA Director Yokasta PAIGE, Dr Kate came to see patient, wanted a Pulmonary consult and change trache to cuff with balloon. Spoke to Andrea REYNA, informed of Dr Kate's instruction to change trache to cuff with balloon, states "We don't do that per our Department policy, MD should be the one to change it." Paged Dr Kaet, awaiting call back.
--- NOTE | 2019-02-20 14:00 | NUR ---
Patient tolerating Glucerna tube feeding 10ml/hr, no vomiting noted, increased feeding to 15ml/hr. Will continue to monitor.
--- NOTE | 2019-02-20 14:10 | NUR ---
Spoke to Dr Kate over the phone, informed RT is not able to change patient's trache to cuff with balloon, verbalized understanding and states "Call pulmonary, call Dr Ibarra or Dr Zavala, they should be able to change it."
--- NOTE | 2019-02-20 15:45 | NUR ---
Dr Fernandes and Andrea RT at bedside. Unsuccessful attempt to change trache. Will consult surgery.
--- NOTE | 2019-02-20 15:45 | NUR ---
Respiratory note: ATTEMPTED TO CHANGE TRACH TO 6 SHILEY CUFFED. BOGDAN HORN WAS UNABLE TO PASS TRACH ON MULTIPLE ATTEMPTS WITHOUT SUCCESS. PREVIOUS UNCUFFED 6 SHILEY WAS PLACED BACK IN AND PATIENT WAS RECONNECTED TO COOL AEROSOL. RECOMMEND SURGICAL CONSULT TO REPLACE TRACH IN OR. GRECIA OCASIO AT BEDSIDE, AWARE OF FAILED ATTEMPT, AND AWARE OF NEED FOR SURGICAL CONSULT. TRACH CARE DONE AT THIS TIME ALSO.
[2019-02-20 16:00] VITALS: BP 93/55
--- NOTE | 2019-02-20 17:00 | NUR ---
Patient had moderate amount of pasty bowel movement. Patient given perineal care. Skin integrity assessed for any changes. Linens and patient's gown changed. Patient repositioned for comfort.
--- NOTE | 2019-02-20 18:00 | NUR ---
Patient tolerating tube feeding at 15mls/hr, no vomiting noted. Increased feeding to 20mls/hr. Will continue to monitor.
[2019-02-20 19:49] VITALS: BP 99/57
[2019-02-21] VITALS (7 sets, daily range): BP systolic 103–112; BP diastolic 60–70
--- NOTE | 2019-02-21 02:25 | NUR ---
Respiratory note: TRACH CARE PERFORMED AT THIS TIME WITHOUT INCIDENT. STOMA SITE CLEANED, NO REDNESS OR IRRITATION NOTED. TRACH GAUZE REPLACED ALONG WITH INNER CANNULA. PLACED A NEW COOL AEROSOL WATER AT THIS TIME AND ALSO CHANGED THE SUCTION PRAKASH. BREATH SOUNDS WERE COARSE BILATERALLY. SUCTIONED LARGE THICK CLEAR WHITE SECRETIONS. TRACH IS SECURED WITH FABIANO TRACH TIES, THEY DID NOT NEED TO BE CHANGED AT THIS TIME.
[2019-02-21] MEDS: Glucerna 1.2 Cal 1Liter BOTTLE GT SCH (03:35)
--- NOTE | 2019-02-21 04:00 | NUR ---
MORNING CARE IS GIVEN ORAL CARE, PERINEAL CARE, AND PARTIAL BATH IS GIVEN. MIDLINE DRESSING CHANGED. HANGED NEW TUBE FEEDING. TRACHEAL SUCTION DONE. PATIENT'S VITAL SIGNS ARE STABLE.
[2019-02-21] MEDS: MEROPENEM 1GM IVPB 100 ML IV SCH (05:51)
[2019-02-21] MEDS: ALBUTEROL SULF 2.5 MG/0.5ML(0.5%) NEB SOLN NEB SCH ×5 (06:22→22:06)
[2019-02-21] MEDS: IPRATROPIUM BROM 0.5 MG/2.5ML INH SOL NEB SCH ×5 (06:22→22:06)
--- NOTE | 2019-02-21 07:45 | NUR ---
Opening Shift Note Assumed care of patient, awake, non-verbal, tracks, follows simple commands. No S/S of distress/SOB or pain. Patient on 5 LPM oxygen via T-piece, 28% FIO2, saturation 99%. Glucerna 30ml/hr running via PEG, patient tolerating well, no residuals noted. See interventions for complete assessment. Bed locked on low position, side rails up x2, bed alarms on at all times, will continue to monitor for changes Q1hr and PRN.
[2019-02-21] MEDS: FERROUS SULFATE 300 MG/5 ML ORAL LIQ GT SCH ×2 (09:20→22:34)
[2019-02-21] MEDS: BUDESONIDE (INHALATION) 0.5 MG/2 ML NEB NEB SCH ×2 (10:11→18:22)
[2019-02-21 10:24] LABS: INR 1.09 (0.9-1.15); Partial Thromboplastin Time 22.8 sec (23.64-32.05)
[2019-02-21] MEDS ORDERED: AMIKACIN 0 ML IV SCH (12:30)
--- NOTE | 2019-02-21 12:50 | NUR ---
Patient had moderate amount of pasty dark brown stool, given perineal care. Skin integrity assessed for any changes. Linens changed. Patient repositioned for comfort. Oral care rendered. Patient tolerated.
--- NOTE | 2019-02-21 13:08 | NUR ---
Called patient's mother Zaynab Trivedi via telephone number [phone]. Telephone consent obtained for Tracheostomy tube change under anesthesia obtained with Heather PAIGE.
--- NOTE | 2019-02-21 13:10 | NUR ---
Urine sample sent to lab
--- NOTE | 2019-02-21 13:15 | NUR ---
Received call from patient's mother Zaynab Farooq cancelling the telephone consent stating "I just spoke to my and he told me I should not be making decision." This RN explained that as the next of kin on record and as the mother, she can make decision since patient cannot make her own decision at this time. Zaynab states "Somebody from [facility] should make the decision, call them."
--- NOTE | 2019-02-21 13:20 | NUR ---
Called [facility] via telephone number [phone] and spoke to inventory administrator Earnestine, this RN explained patient needed a consent for the procedure but the mother is refusing to give the consent stating that [facility] has to make the decision. Earnestine states "We don't make the decision or consent it should be the mother."
--- NOTE | 2019-02-21 13:45 | NUR ---
Spoke to patient's mother over the phone and informed her this RN already spoke to Earnestine - accounts receivable administrator from [facility] and stated that the mother should make the decision and not them. Mother verbalized understanding but states "I don't want to make the decision, I don't know what the financial situation is, [facility] know the situation, they should be able to make decision."
[2019-02-21] MEDS: AMIKACIN 1,000 MG in D5W 5% 100 ML IV SCH (15:11)
--- NOTE | 2019-02-21 16:30 | NUR ---
Paged Dr Fernandes regarding refusal of patient's mother to consent for tracheostomy tube change, awaiting call back.
--- NOTE | 2019-02-21 17:31 | NUR ---
Dr Fernandes in the unit, informed patient's mother refused to make decision and consent on patient's tracheostomy tube change and wanted MD to call her. Dr Fernandes states "Let Dr Garcia call her, he's going to do the procedure anyway."
--- NOTE | 2019-02-21 19:43 | NUR ---
SPOKE WITH PATIENT'S MOTHER ANNIE OVER THE PHONE UPDATED HER ON PATIENT STATUS AND NEED FOR CONSENTS FOR SURGERY PER MOTHER SHE LIVES IN [place] AND IS UNABLE TO MAKE IT TO SIGN CONSENTS INFORMED ANNIE TELEPHONE CONSENTS CAN BE OBTAINED PER ANNIE SHE IS CONCERNED ABOUT PATIENT'S INSURANCE COVERING HER SURGERY AND STATES SHE IS UNABLE TO AFFORD SURGERY PATIENT'S MOTHER WOULD LIKE TO SPEAK TO IN THE AM, WILL FOLLOW THROUGH
--- NOTE | 2019-02-21 19:50 | NUR ---
Opening Shift Note Assumed care of patient, awake,aphasic, following commands. No S/S of distress/SOB or pain. Patient on t-piece at 5LNC with 28%fio2. Glucerna feedings infusing at 30cc/hr through PEG tube. Residuals checked and none noted. Patient turned at this time for skin assessment, sacrum continued to be intact with blanchable redness, rhona-area with intertrigo, z-guard barrier cream applied to affected areas. Left upper arm midline with no blood return but flushing without resistance. Patient repositioned for comfort. Per day shift RN, no vomiting episodes during day. Aspiration and fall precautions continued. Will continue to monitor frequently.
[2019-02-22] VITALS (10 sets, daily range): BP systolic 90–137; BP diastolic 54–76
--- NOTE | 2019-02-22 04:30 | NUR ---
AM CARE COMPLETE BED BATH PROVIDED USING CHG WIPES AND WARM WASH CLOTHS. PARTIAL LINEN CHANGE DONE. ORAL CARE PROVIDED. PATIENT TOLERATED WELL. Z-GUARD PLACED TO PERINEAL AREA, AND OPTIFOAM FOR PREVENTATIVE. PATIENT REPOSITIONED FOR COMFORT. CONTINUE TO MONITOR.
--- NOTE | 2019-02-22 06:53 | NUR ---
END OF SHIFT NOTE PATIENT REMAINED STABLE THROUGHOUT THE NIGHT. RESTING IN BED WITH NO S/S OF DISTRESS OR SOB. POX 100%. HR 91. NO EPISODES OF VOMITING THROUGHOUT THE NIGHT. FEEDINGS HELD FOR SCHEDULED PROCEDURE. WILL ENDORSE CARE TO DAY SHIFT RN.
--- NOTE | 2019-02-22 07:34 | NUR ---
SPOKE WITH PATIENT'S MOTHER OVER THE PHONE, UPDATED HER ON SCHEDULED TIME FOR OR. PER ANNIE SHE CANNOT SIGN OR CONSENT FOR SURGERY TODAY DUE TO FINANCIAL REASONS. PATIENT'S MOTHER IS REQUESTING SOMEONE ELSE TO CONSENT FOR PATIENT. WHEN ASKED IF THERE IS OTHER FAMILY AVAILABLE ANNIE STATES THERE IS NONE. EXPLAINED TO PATIENT'S MOTHER SHE IS THE ONLY ONE THAT CAN CONSENT FOR SX . ANNIE WOULD LIKE TO SPEAK TO DR. INMAN REGARDING PROCEDURE BUT DR. INMAN IS UNAVAILABLE UNTIL 0800 PER PBX AND PATIENT'S MOTHER HAS A APPOINTMENT AT 0900. PER PATIENT'S MOTHER SHE WILL CALL UNIT BEFORE SHE STEPS OUT TO HER APPOINTMENT FOR UPDATES SINCE SHE HAS NOT CELLPHONE AVAILABLE.
[2019-02-22] MEDS: IPRATROPIUM BROM 0.5 MG/2.5ML INH SOL NEB SCH ×5 (07:40→22:03)
[2019-02-22] MEDS: BUDESONIDE (INHALATION) 0.5 MG/2 ML NEB NEB SCH ×2 (07:40→18:46)
[2019-02-22] MEDS: ALBUTEROL SULF 2.5 MG/0.5ML(0.5%) NEB SOLN NEB SCH ×5 (07:40→22:03)
--- NOTE | 2019-02-22 08:10 | NUR ---
Received a call from patient's Mom, she about to leave a house for her appointment now, and we still waiting a call from Dr. Garcia at this time.
--- NOTE | 2019-02-22 08:20 | NUR ---
received a call from Dr. Radha MD made aware that patient's Mom would like to talk to MD on the phone and she didn't sign a consent for a procedure this morning yet, said we will cancel the procedure this morning for now.
--- NOTE | 2019-02-22 08:30 | NUR ---
Opening Shift Note Assumed care of patient, awake. No S/S of distress/SOB or pain. Instructed on POC, will continue to monitor for changes Q1hr and PRN. Suction provided at this time too, got large amount of secretion, will continue to monitor.
--- NOTE | 2019-02-22 10:00 | NUR ---
PT at the bedside.
--- NOTE | 2019-02-22 10:14 | NUR ---
Position changed provided, DIESEL LOCOMOTIVE FIRER/FIREMAN for Dr. Walker seen patient at this time, received new orders, will carry out.
--- NOTE | 2019-02-22 10:29 | NUR ---
Resume tube feeding at this time.
[2019-02-22] MEDS ORDERED: Glucerna 1.2 Cal 1Liter BOTTLE GT SCH (10:30)
[2019-02-22] MEDS: FERROUS SULFATE 300 MG/5 ML ORAL LIQ GT SCH ×2 (10:34→22:00)
[2019-02-22 10:53] LABS: Albumin 2.6 g/dL (3.4-5.0); Anion Gap 8 (5-15); BUN/Creatinine Ratio 29.4; Blood Urea Nitrogen 10 mg/dL (7-18); Calcium 8.6 mg/dL (8.5-10.1); Carbon Dioxide 31 mmol/L (21-32); Chloride 114 mmol/L (98-107); GFR African American 254 mL/min; GFR Non-African American 210 mL/min; Glucose 117 mg/dL (74-106); Potassium 3.2 mmol/L (3.5-5.1); Sodium 153 mmol/L (136-145)
--- NOTE | 2019-02-22 10:53 | NUR ---
Dr. Fernandes seen patient at this time, made aware about that patient's Mom doesn't to sign a consent at this time, patient's Mom would like to talk to Dr. Fernandes or Dr. Garcia, both MDs made aware about her Mom requests.
[2019-02-22 10:56] LABS: Alanine Aminotransferase 32 U/L (13-56); Alkaline Phosphatase 89 U/L (45-117); Aspartate Aminotransferase 37 U/L (15-37); Bilirubin, Total 0.3 mg/dL (0.2-1.0); Total Protein 6.1 g/dL (6.4-8.2)
--- NOTE | 2019-02-22 11:00 | NUR ---
SUCTIONED PT. X3 FOR THICK CLEAR TO WHITE SECRETIONS, LARGE AMOUNT. Addendum: 02/22/19 at 1111 by Nathalia Archuleta RT Amended: Links added.
[2019-02-22 11:01] LABS: Basophils # (auto) 0.1 uL; Basophils % (auto) 0.8 % (0.0-2.0); Eosinophils # (auto) 0.2 uL; Hematocrit 39.7 % (36.0-46.0); Hemoglobin 13.1 g/dL (12.2-16.2); Lymphocytes # (auto) 1.3 uL; Lymphocytes % (auto) 16.8 % (10.0-50.0); Mean Corpuscular Hemoglobin 29.4 pg (28.0-32.0); Mean Corpuscular Volume 89.2 fL (80.0-100.0); Monocytes # (auto) 0.4 uL; Monocytes % (auto) 4.9 % (0.0-12.0); Neutrophils # (auto) 5.6 uL; Neutrophils % (auto) 74.5 % (37.0-80.0); Platelet Count (auto) 182 10^3/uL (140-450); Red Blood Cells 4.44 10^6/uL (4.0-5.20); Red Cell Distribution Width 15.1 % (11.8-14.3); White Blood Cell 7.5 10^3/uL (4.4-10.8)
[2019-02-22] MEDS: MEROPENEM 1GM IVPB 100 ML IV SCH ×2 (11:05→18:41)
--- NOTE | 2019-02-22 13:00 | NUR ---
Patient had bowel movement (green color), perineal care provided, moncada's catheter care provided, applied Z guard cream, position changed at this time as well. Suction x 1, got white, stick sputum with large amount. Will continue to monitor and care.
--- NOTE | 2019-02-22 13:48 | NUR ---
Reported Lab result to PRAFUL Skinner and received order for Potassium one dose. Spoke with Construction Rep about Na level and her diet doesn't have a lot of sodium in it, Construction Rep still recommend Glucerna at this time.
[2019-02-22] MEDS ORDERED: POTASSIUM CHL 20 Meq TABLET PO ONE (14:00)
[2019-02-22] MEDS ORDERED: POTASSIUM EFFERVESENT TAB 25 MEQ GT SCH (14:45)
[2019-02-22] MEDS ORDERED: SODIUM ZIRCONIUM CYCL 10 GM PAK PO ONE (14:45)
[2019-02-22] MEDS ORDERED: POTASSIUM EFFERVESENT TAB 25 MEQ PO ONE (14:45)
[2019-02-22] MEDS: AMIKACIN 1,000 MG in D5W 5% 100 ML IV SCH (14:46)
--- NOTE | 2019-02-22 15:01 | NUR ---
Dr. Garcia at the bedside, made aware about the consent that patient's parents didn't want to sign at this time, called Zaynab (Mom) and talked to her on the phone about the procedure (per Dr. Garcia explained about the risks) to her, she stated that she made aware but her still refused for signing the consent and she couldn't move forward at this time.
--- NOTE | 2019-02-22 17:28 | NUR ---
Suction at this time, position changed with elevated HOB, no content noted with PEG, free water given as order, will continue to monitor and care.
[2019-02-22] MEDS: FREE WATER GT SCH (17:31)
--- NOTE | 2019-02-22 19:10 | NUR ---
Opening Note REPORT RECEIVED FROM DAY RN. POC REVIEWED. Assumed care of patient, awake. No S/S of distress or pain NOTED AT THIS TIME. PT HAS ALLEN HANGING BELOW BLADDER PATENT DRAINING TO GRAVITY. L UPPER ARM MIDLINE, PATENT, NO REDNESS NO SS OF SWELLING. PT HAS PEG TUBE, PEG TUBE IS PATENT. PT RECEIVING TUBE FEEDINGS. BED IN LOWEST POSITION, WHEELS LOCKED HOB 30*, 2 SIDE RAILS UP . PT IN FULL VIEW OF RN STATION. SUCTION AT BEDSIDE. will continue tO CARE FOR AND monitor. Addendum: 02/23/19 at 0524 by MANDI MARQUEZ RN RN PILLOWS IN PLACE TO OFFLOAD PRESSURE OF ELIZABETH PROMINENCES.
--- NOTE | 2019-02-22 21:00 | NUR ---
BM PT HAD LIQUID STOOL, GOWN AND BEDDING CHANGED. PT CLEANED AND REPOSITIONED FOR COMFORT AND SAFETY.
--- NOTE | 2019-02-22 23:20 | NUR ---
O2 SATURATION DESAT PT O2 STARTED TO DESATURATE.Suction provided at this time too, MODERATE amount of secretion, O2 SATURATION NOW AT 99% VS WNL. will continue to monitor
[2019-02-23] VITALS (11 sets, daily range): BP systolic 66–125; BP diastolic 40–71
[2019-02-23] MEDS: MEROPENEM 1GM IVPB 100 ML IV SCH ×3 (03:00→19:03)
--- NOTE | 2019-02-23 03:30 | NUR ---
HYGIENE JUMA AND GOWN CHANGED. PARTIAL BED BATH GIVEN. SUCTION CANISTERS AND TUBING CHANGED. PT TOLERATED CARE.SAFETY MEASURERS IN PLACE. WILL CONTINUE TO CARE FOR AND MONITOR
--- NOTE | 2019-02-23 05:15 | NUR ---
Suction provided at this time too, MODERATE amount of secretion, will continue to monitor
[2019-02-23] MEDS: ALBUTEROL SULF 2.5 MG/0.5ML(0.5%) NEB SOLN NEB SCH ×5 (06:09→22:09)
[2019-02-23] MEDS: IPRATROPIUM BROM 0.5 MG/2.5ML INH SOL NEB SCH ×5 (06:09→22:09)
[2019-02-23] MEDS: FREE WATER GT SCH ×5 (06:10→23:25)
--- NOTE | 2019-02-23 07:13 | NUR ---
REPORT GIVEN AND CARE ENDORSED TO DAY RN
--- NOTE | 2019-02-23 07:30 | NUR ---
RECEIVED PATIENT SITTING UP IN THE BED, EYES OPEN BUT NO VERBAL RESPONSE WHEN TALKING TO HER, BUT RAISED HER HAND TO TOUCH MINE WHEN I ASK HER TO SQUEEZE MY HAND, BUT DID NOT SQUEEZE, O2 BY THE T-PIECE WITH 28% FIO2, SCD'S TO ERNESTINE LEGS, ALLEN TO GRAVITY, NATHAN MIDLINE INTACT FLUSHED AND PATENT, NO SIGNS OF DISTRESS
--- NOTE | 2019-02-23 08:46 | NUR ---
sitting up in the bed with eyes closed no distress noted
--- NOTE | 2019-02-23 09:30 | NUR ---
EXPLAIN MEDICATIONS TO THE PATIENT REGARDING DOSAGE, USAGE, AND THE SIDE EFFECTS, EVEN THOUGH THE PATIENT CAN'T ACKNOWLEDGE THAT SHE UNDERSTANDS , AND MEDS GIVEN ORDERED
[2019-02-23] MEDS: FERROUS SULFATE 300 MG/5 ML ORAL LIQ GT SCH ×2 (09:38→22:13)
[2019-02-23] MEDS: BUDESONIDE (INHALATION) 0.5 MG/2 ML NEB NEB SCH ×2 (09:58→22:08)
--- NOTE | 2019-02-23 10:16 | NUR ---
RT WORKING WITH THE PATIENT
--- NOTE | 2019-02-23 11:00 | NUR ---
DR MCFADDEN HERE TO SEE THE PATIENT AND ORDER NEW LABS
--- NOTE | 2019-02-23 11:43 | NUR ---
PT Patient unable to respond to VC's during PT visit. Performed PROM exercises for both U&L extremities from bed. Unsafe for OOB transfer. Addendum: 02/23/19 at 1144 by JOSE EDUARDO ORDAZ PTT Amended: Links added.
--- NOTE | 2019-02-23 12:30 | NUR ---
STILL ON THE FEEDING PUMP AT 30ML/HR INFUSING INTO THE PEG TUBE IN THE LUQ
--- NOTE | 2019-02-23 12:50 | NUR ---
Spoke with Margiemaría Farooq's . states "Stop calling us about Maura we are not involved in her medical treatment and never have been." I tried to explain to him that the message was left for them to call back because Dr. Stiles was trying to update them on how she is doing. I also explained that she is unable to make her own medical decisions so legally that would have to be made by her Mother or next of kin. He states "Please stop calling we don't want to be bothered any more."
--- NOTE | 2019-02-23 13:30 | NUR ---
EYES OPEN LOOKING TOWARD THE TV, STILL NO VERBAL RESPONSE FORM THE PATIENT
--- NOTE | 2019-02-23 14:25 | NUR ---
Nutrition Follow-up Notes Wt.: 74.6 kg Pt's on trach, in isolation room, no immediate family member at bedside during rounds this morning. Pt's no signs of distress noted earlier, currently on NPO with EN support of Glucerna 1.2 Michel @ 30 ml/hr providing 864 kcal, 43 gms pro and 580 ml free water, (with 799 mgs Na) tolerates feeding well, no residuals noted by RN this morning. Pt with inadequate EN support d/t low initiation rate delivery of concentrated formula aeb current EN infusion meets 48% to 59% of est caloric needs and 60% to 75% of est protein needs. Noted pt's for active Surgical consult. Est. Needs: 1450 kcal to 1800 kcal (25-30 kcal/kgBW), 57 gms to 72 gms pro (0.8-1.0 gms/kgBW). Will continue to monitor pertinent labs and reassess nutrient need prn Labs: No new labs today 02/22/19 Na 153 H, K 3.2 L, Cl 114 H, Cr 0.34 L, Tot cody 3.0 H, Tpro 6 L, Alb 2.6 L. Skin: Emmett scale 12, high risk, scab to calf per package crimper. GI: Pt had 1 BM this morning per package crimper. PES: Altered nutrition related lab values r/t acute/chronic medical condition aeb hyperglycemia, elev. BUN,ALP, Mg, hypocalcemia and mild hypoalbuminemia Increase nutrient needs r/t current medical condition aeb on vent via trach, NPO with EN support via PEG tube, mild hypoalbuminemia. Will continue to monitor NPO status, EN tolerance, skin status, pertinent labs and weight trend. F/u in 2 to 3 days. Rec.: 1.) If still NPO, consider gradual increase on feeding rate of Glucerna 1.2 Michel to 60 ml/hr goal rate as tolerated when medically appropriate. 2.) If Albumin level continues trending down, consider Prostat 1 pkt BID. 3.) Consider daily MVI with minerals and Asc acid 500 mgs BID prn.4.) Refer pt's family to CDE/RD for further nutrition education and weight monitoring upon discharge. 5.) Continue current plan of care.
--- NOTE | 2019-02-23 14:36 | NUR ---
TRIED TO START A NEW IV ON THE PATIENT BUT UNSUCCESSFUL 0/4 TRIES, ADRYAN SITING U IN THE BED SUCTIONED NEEDED
--- NOTE | 2019-02-23 14:44 | NUR ---
RT WORKING WITH THE PATIENT
--- NOTE | 2019-02-23 14:46 | NUR ---
SPOKE WITH HODA TO REPLACE THE MIDLINE IN THE NATHAN, WHICH IS NOT WORKING
--- NOTE | 2019-02-23 15:30 | NUR ---
WAITING FOR MIDLINE TO BE PLACED TO GIVE ANTIBIOTICS
--- NOTE | 2019-02-23 16:08 | NUR ---
SUCTIONED AND ORAL CARE GIVEN
[2019-02-23] MEDS: AMIKACIN 1,500 MG in D5W 5% 250 ML IV SCH (17:05)
--- NOTE | 2019-02-23 17:12 | NUR ---
Midline Placement: Patient educated on need for midline placement. All risks and benefits explained and all questions and concerns addresses prior to procedure. 18g/10cm midline inserted via right basilic vein using Ultrasound. Sterile technique utilized. Blood return obtained from the lumen and flushed easily with NS using proper technique. Midline secured with saline lock; biodisc and occlusive dressing applied. Primary RN notified. Midline lot # [id number]. x1 attempt
--- NOTE | 2019-02-23 17:50 | NUR ---
SUCTIONED AND NO CHANGE IN CONDITION, STILL NO VERBAL RESPONSE, BUT WILL CONTINUE TO WATCH YOU WHEN YOU ARE IN THE ROOM
--- NOTE | 2019-02-23 18:28 | NUR ---
PATIENT SUCTIONED BY RT, REPOSITION, FEEDING CONTINUES AT 30ML/HR BY THE FEEDING PUMP INTO THE LUQ PEG TUBE, O2 AT 28% FIO2 BY THE T-PIECE WHICH IS CONNECTED TO THE SIZE 6 SHILEY TRACH IN THE NECK, ALLEN TO GRAVITY, SCD'S TO ERNESTINE LEGS, NEW MIDLINE TO THE KATHRYN WITH ANTIBIOTICS INFUSING BY THE IV PUMP,WILL CONTINUE TO MONITOR AND GIVE REPORT TO THE NEXT SHIFT
[2019-02-23] MEDS: MUPIROCIN 2% OINT 15gm or 22gm EACHNOSTRI SCH (22:13)
[2019-02-24] MEDS: ACETAMINOPHEN 500 MG TAB PO PRN (00:36)
[2019-02-24] MEDS: MEROPENEM 1GM IVPB 100 ML IV SCH ×3 (03:47→18:12)
[2019-02-24 04:00] VITALS: BP 111/77
[2019-02-24] MEDS: FREE WATER GT SCH ×3 (06:00→17:36)
[2019-02-24 07:28] LABS: Calcium 9.1 mg/dL (8.5-10.1); Potassium 3.6 mmol/L (3.5-5.1)
[2019-02-24 07:30] LABS: BUN/Creatinine Ratio 33.3
--- NOTE | 2019-02-24 07:30 | NUR ---
Opening Shift Note Assumed care of patient, awake, calling her name and she turned her face to me, patient able to move her left hand and left leg as usual. No S/S of distress/SOB or pain. Instructed on POC and to call for assist PRN, will continue to monitor for changes Q1hr and PRN. Her saturation 89-90, repositioning, elevated HOB, provided deep suction via TT at this time, patient had a lot of secretion with white color, will continue to monitor and care, mouth care provided.
[2019-02-24] MEDS: ALBUTEROL SULF 2.5 MG/0.5ML(0.5%) NEB SOLN NEB SCH ×5 (07:39→21:51)
[2019-02-24] MEDS: IPRATROPIUM BROM 0.5 MG/2.5ML INH SOL NEB SCH ×5 (07:39→21:51)
[2019-02-24 08:00] VITALS: BP 119/67
--- NOTE | 2019-02-24 08:50 | NUR ---
Received a call from Zaynab (patient's mother) at this time, she stated that she calling to give a permission for procedure : change TT with cuff, 2 RNs witness for this time.
--- NOTE | 2019-02-24 09:00 | NUR ---
Saturation 87-90% with T-piece O2 28%, 6 LPM, paged RT.
--- NOTE | 2019-02-24 09:04 | NUR ---
RT at the bedside, will continue to monitor and care.
--- NOTE | 2019-02-24 09:05 | NUR ---
PAGED TO PT'S ROOM, DUE TO PT. DESATURATING TO 86%. SX'D TRACH WITH LAVAGE X2 FOR LARGE AMOUNT OF THICK WHITE SECRETIONS. INCREASED FI02 TO 30% AT THIS TIME, SPO2 99% AFTER SUCTIONING, WILL CONTINUE TO MONITOR O2 SATS AND RESP. STATUS.
--- NOTE | 2019-02-24 10:00 | NUR ---
Patient had desaturation 84-90 %, deep suction provided most likely almost every 30 min-1 hour for clear airway, then her saturation up to 98%, keep MD EMMA made aware.
--- NOTE | 2019-02-24 10:15 | NUR ---
Patient had large bowel movement, perineal and moncada's catheter care provided, applied Z guard cream at perineal and perirectal area. Position changed at this time as well. Will continue to monitor and care.
--- NOTE | 2019-02-24 10:20 | NUR ---
Dr. Sheriff at the bedside, will continue to monitor and care, no new order at this time.
[2019-02-24] MEDS: MUPIROCIN 2% OINT 15gm or 22gm EACHNOSTRI SCH ×2 (10:57→22:58)
[2019-02-24] MEDS: FERROUS SULFATE 300 MG/5 ML ORAL LIQ GT SCH ×2 (10:57→22:58)
[2019-02-24] MEDS: BUDESONIDE (INHALATION) 0.5 MG/2 ML NEB NEB SCH ×2 (11:15→18:09)
--- NOTE | 2019-02-24 11:15 | NUR ---
SX'D TRACH FOR LARGE AMOUNT OF THICK WHITE SECRETIONS X2 WITH LAVAGE. Addendum: 02/24/19 at 1130 by Nathalia Archuleta RT Amended: Links added.
[2019-02-24 11:42] VITALS: BP 107/67
--- NOTE | 2019-02-24 12:50 | NUR ---
Patient had large bowel movement with green color, soft, perineal care, moncada's catheter care provided, applied z guard, re position at this time as well. Deep suction provided for clear air way.
--- NOTE | 2019-02-24 14:50 | NUR ---
TRACH CARE DONE AT THIS TIME, CHANGED TUBING, TRACH TIES, DRESSING, INNER CANNULA, AND CLEANED SITE. SX'D TRACH FOR LARGE AMOUNT OF THICK WHITE SECRETIONS. Addendum: 02/24/19 at 1501 by Nathalia Archuleta RT Amended: Links added.
[2019-02-24] MEDS: AMIKACIN 1,500 MG in D5W 5% 250 ML IV SCH (15:51)
--- NOTE | 2019-02-24 15:52 | NUR ---
Deep suction provided, got a lot of secretion with loose and white color. Will continue to monitor and care.
[2019-02-24 16:13] VITALS: BP 111/72
--- NOTE | 2019-02-24 17:00 | NUR ---
Patient was desaturation O2 saturation 82-84%, deep suction provided, still a lot of secretion even though i suction her almost every hour, re position at this time, O2 saturation up to 97-98%, will continue to monitor and care.
--- NOTE | 2019-02-24 17:41 | NUR ---
Patient still desaturation sometimes, O2 saturation 90-92%, deep suction provided, still has a lot of secretion, will continue to monitor and care.
--- NOTE | 2019-02-24 18:10 | NUR ---
Paged RT due to desaturation, RT at the bedside at this time, deep suction provided, breathing given as well by RT, reported patient's condition to MD construction services technician, received orders from Yobany AUDIO VISUAL MANAGER for CXR and ABG, RT also made aware, will continue to monitor and care.
--- NOTE | 2019-02-24 18:30 | NUR ---
Re positioning, sitting up on the bed with elevated HOB, suction given by RT, CXR obtained at this time, will continue to monitor and care.
[2019-02-25] VITALS (24 sets, daily range): BP systolic 85–137; BP diastolic 42–83
[2019-02-25] MEDS: FREE WATER GT SCH ×4 (00:11→17:31)
--- NOTE | 2019-02-25 02:45 | NUR ---
Respiratory note: TRACH CARE PERFORMED WITH NO INCIDENTS NOTED. NO SKIN BREAKDOWN OR SWELLING AROUND STOMA SITE. SXN PRAKASH AND INNER CANNULA CHANGED. SXN PT WITH RETURN OF MOD THICK CLR WHITE WITH A HINT OF BROWN SPECKLES IN SPUTUM. 4EYES OBSERVED BY GERARDO.Erin RN [facility].
[2019-02-25] MEDS: MEROPENEM 1GM IVPB 100 ML IV SCH ×3 (03:00→20:00)
--- NOTE | 2019-02-25 05:40 | NUR ---
Pt has remained stable this shift. Trach canula and dressing changed by RT. Pt tolerating feeding well at this time. O2 sats have been 99-100 this shift.
[2019-02-25] MEDS: IPRATROPIUM BROM 0.5 MG/2.5ML INH SOL NEB SCH ×5 (06:50→22:05)
[2019-02-25] MEDS: ALBUTEROL SULF 2.5 MG/0.5ML(0.5%) NEB SOLN NEB SCH ×5 (06:50→22:05)
--- NOTE | 2019-02-25 06:50 | NUR ---
PT. SX'S FOR LARGE AMOUNT OF THICK PRATT SECRETION FROM TRACH. DECREASED FIO2 TO 28% WITH FLOW OF 6LPM, SPO2 99%. CONTINUE TO MONITOR 02 SATS.
[2019-02-25 06:53] LABS: Anion Gap 8 (5-15); BUN/Creatinine Ratio 26.2; Blood Urea Nitrogen 11 mg/dL (7-18); Calcium 8.9 mg/dL (8.5-10.1); Carbon Dioxide 29 mmol/L (21-32); Chloride 107 mmol/L (98-107); GFR African American 199 mL/min; GFR Non-African American 165 mL/min; Glucose 165 mg/dL (74-106); Magnesium 2.7 mg/dL (1.6-2.6); Potassium 3.5 mmol/L (3.5-5.1); Sodium 144 mmol/L (136-145)
--- NOTE | 2019-02-25 07:30 | NUR ---
ASSUMED CARE OF PATIENT AFTER RECEIVING REPORT FROM SHUBHAM PAIGE
[2019-02-25] MEDS ORDERED: SODIUM CHLORIDE 0.9 % NEB SOLN 3ML NEB ONE (08:52)
--- NOTE | 2019-02-25 09:00 | NUR ---
PEG TUBE CLOTTED WITH TF - UNCLOGGED WITH WARM WATER ET STRIPPING PEG TUBE.
--- NOTE | 2019-02-25 09:30 | NUR ---
LUNGS COARSE BILAT - SUCTIONED PER TRACH CLOSED SUCTION SYSTEM OF MOD AMT THICK WHITE SECRETIONS. LARGE AMT THIN BROWN SECRETIONS NOTED IN TRACH TUBING TO HUMIDIFIED O2.
[2019-02-25] MEDS: Glucerna 1.2 Cal 1Liter BOTTLE GT SCH (10:04)
--- NOTE | 2019-02-25 10:15 | NUR ---
DR MAYER VISITS ET EXAMINES PATIENT - ORDER RECEIVED.
[2019-02-25] MEDS: BUDESONIDE (INHALATION) 0.5 MG/2 ML NEB NEB SCH ×2 (10:29→22:05)
--- NOTE | 2019-02-25 10:30 | NUR ---
PT. SX'D FOR THICK WHITE SECRETIONS MODERATE AMOUNT. TRACH CARE DONE AT THIS TIME, CHANGED INNER CANNULA, CLEANED SITED, CHANGED GAUZE, AND PRAKASH. NO RESP. DISTRESS NOTED, VITALS STABLE, FI02 28%,SPO2 100%.
[2019-02-25] MEDS: MUPIROCIN 2% OINT 15gm or 22gm EACHNOSTRI SCH ×2 (11:00→22:00)
[2019-02-25] MEDS: FERROUS SULFATE 300 MG/5 ML ORAL LIQ GT SCH (11:00)
--- NOTE | 2019-02-25 12:01 | NUR ---
Nutrition Follow-up Notes Wt.: 74.8 kg Pt's on trach, in isolation room, no immediate family member at bedside during rounds this morning. Pt's no signs of distress noted earlier, currently on NPO with EN support of Glucerna 1.2 Michel @ 30 ml/hr providing 864 kcal, 43 gms pro and 580 ml free water, (with 799 mgs Na) tolerates feeding well, no residuals noted by RN this morning. Pt with inadequate EN support d/t low initiation rate delivery of concentrated formula aeb current EN infusion meets 48% to 59% of est caloric needs and 60% to 75% of est protein needs. Noted pt's for active Surgical consult. Est. Needs: 1450 kcal to 1800 kcal (25-30 kcal/kgBW), 57 gms to 72 gms pro (0.8-1.0 gms/kgBW). Will continue to monitor pertinent labs and reassess nutrient need prn Labs: GLU 165 H, ALB 2.6 L Skin: Emmett scale 13, mod risk, scab to calf per medical instructor. GI: Pt had 2 BM 02/24 per medical instructor. PES: Altered nutrition related lab values r/t acute/chronic medical condition aeb hyperglycemia, elev. BUN,ALP, Mg, hypocalcemia and mild hypoalbuminemia Increase nutrient needs r/t current medical condition aeb on vent via trach, NPO with EN support via PEG tube, mild hypoalbuminemia. Will continue to monitor NPO status, EN tolerance, skin status, pertinent labs and weight trend. F/u in 2 to 3 days. Rec.: 1.) If still NPO, consider gradual increase on feeding rate of Glucerna 1.2 Michel to 60 ml/hr goal rate as tolerated when medically appropriate. 2.) If Albumin level continues trending down, consider Prostat 1 pkt BID. 3.) Consider daily MVI with minerals and Asc acid 500 mgs BID prn.4.) Refer pt's family to CDE/RD for further nutrition education and weight monitoring upon discharge. 5.) Continue current plan of care.
--- NOTE | 2019-02-25 12:15 | NUR ---
Patient had large emesis brown/green liq. Also suctioned lg amt per trach - RT notified et cont'd to suction lg amt emesis via trach. Patient linens changed et repositioned with HOB elevated 40 degrees. CXR ordered per protocol. TF turned off - call placed to .
--- NOTE | 2019-02-25 14:00 | NUR ---
No CXR report received yet - Radiology called - states will call radiologist for report.
--- NOTE | 2019-02-25 14:50 | NUR ---
Patient had large green/brown emesis via peg tube-complete bed linen changed - call placed to
[2019-02-25 15:04] LABS: Basophils # (auto) 0 uL; Basophils % (auto) 0.4 % (0.0-2.0); Eosinophils # (auto) 0.2 uL; Eosinophils % (auto) 2.9 % (0.0-7.0); Hematocrit 40.3 % (36.0-46.0); Hemoglobin 13.6 g/dL (12.2-16.2); Lymphocytes # (auto) 1.1 uL; Lymphocytes % (auto) 16.4 % (10.0-50.0); Mean Corpuscular Hemoglobin 30.1 pg (28.0-32.0); Mean Corpuscular Hgb Conc. 33.7 g/dL (32.0-36.0); Mean Corpuscular Volume 89.4 fL (80.0-100.0); Monocytes # (auto) 0.4 uL; Monocytes % (auto) 6.3 % (0.0-12.0); Platelet Count (auto) 188 10^3/uL (140-450); Red Blood Cells 4.51 10^6/uL (4.0-5.20); Red Cell Distribution Width 15.5 % (11.8-14.3); White Blood Cell 6.7 10^3/uL (4.4-10.8)
--- NOTE | 2019-02-25 15:04 | NUR ---
PATIENT'S MOTHER PHONES - UPDATED ON PATIENT CONDITION - VERBALIZES UNDERSTANDING. CONSENT FOR PICC LINE OBTAINED.
[2019-02-25] MEDS ORDERED: SODIUM CHLORIDE 0.9% 1,000 ML IV SCH (15:15)
[2019-02-25 15:39] LABS: INR 0.96 (0.9-1.15); Partial Thromboplastin Time 21.7 sec (23.64-32.05)
--- NOTE | 2019-02-25 16:20 | NUR ---
Another call placed to re: emesis - call returned - order received. Addendum: 02/25/19 at 1638 by Aminah Tidwell RN Call placed to Dr. Savage re: vomiting.
--- NOTE | 2019-02-25 16:30 | NUR ---
No CXR report noted - radiology notified - states will call Radiologist for report.
[2019-02-25] MEDS: SODIUM CHLORIDE 0.9% 1,000 ML IV SCH (16:45)
--- NOTE | 2019-02-25 18:30 | NUR ---
ATTEMPT MADE TO EXCHANGE PICC OVER GUIDEWIRE, DRESSING REMOVED, PATIENT UNABLE TO REMAIN STILL AND MIDLINE DISLODGED. PATIENT POSITIONED FOR PICC PLACEMENT, TECH AT BEDSIDE TO HOLD PATIENT STILL PATIENT PULLING AT WIRES AND REMOVED PULSE OX, PRIMARY RN ASKED TO PLACE PATIENT IN RESTRAINT FOR LINE PLACEMENT. VEIN ACCESSED AND GUIDEWIRE REMOVED AND DILATOR INTRODUCED. PATIENT REACHING OVER STERILE DRAPE, AND GRABBED AT PICC LINE BREAKING STERILITY. PICC LINE REMOVED AND AND DILATOR REMOVED, UPON ASSESSMENT PART OF DILATOR APPEARED TO BE MISSING. PATIENT BECAME TACHYCARDIC. CALLED RADIOLOGY FOR STAT CHEST X-RAY. PRIMARY PROVIDER AT BEDSIDE MADE AWARE OF SITUATION. RADIOLOGY AT BEDSIDE CHEST E-RAY TAKEN, NOT ABLE TO VISUALIZE ANY PART OF DILATOR. UPON ASSESSMENT ALL PARTS OF PICC KIT PLACED BACK IN POSITION AND ALL PARTS OF THE DILATOR INTACT AND ACCOUNTED FOR. PRIMARY PROVIDER NOTIFIED AND PATIENT TRANSFERRED TO ICU. USED DILATOR PLACED IN BIOHAZARD BAG AND GIVEN TO ICU STAFF NUCLEAR MEDICINE TECHNOLOGIST.
--- NOTE | 2019-02-25 19:00 | NUR ---
Director Of Quality Control called to room per Patricia RN (PICC line RN) stating that part of Introducer broke off inside of patient - stat CXR ordered et lost charge card clerk notified. Patient restless during PICC line insertion with CCT holding patient's arm in place at bedside. Code blue called per Patricia PAIGE - resp shallow and congested, HR tachy 119 - no pulse or resp lost. RT at bedside. Cezar BOARD STACKER at bedside. Radiology at bedside - CXRs taken at bedside. Patient placed on ventilator per Cezar's orders in addition to upgrade to ICU. New picc line kit opened at bedside per Treating Engineer Claudette - no pieces of Introducer noted to be missing.
[2019-02-25] MEDS ORDERED: LORazepam 2MG/ML-1ML VIAL ONE (19:15)
--- NOTE | 2019-02-25 19:25 | NUR ---
ativan 1 mg iv given as ordered for transport to ct
[2019-02-25] MEDS ORDERED: LORazepam 2MG/ML-1ML VIAL IM ONE (19:30)
--- NOTE | 2019-02-25 19:30 | NUR ---
Respiratory note: LEFT TO CT AT THIS TIME PT ON RA. PULSE OX 93%
--- NOTE | 2019-02-25 19:30 | NUR ---
Patient transported to CT per bed on portable monitor worker. Placed on ventilator per RT at ordered settings per Cezar CHAPLAINCY. Accompanied to CT x 2 RNs et RT.
--- NOTE | 2019-02-25 19:35 | NUR ---
Report given to Alyssa PAIGE.
--- NOTE | 2019-02-25 19:41 | NUR ---
Admit to ICU from [facility] on vent CHASE DERAS admitted to ICU via gurney on hospital aides and assistants teacher, intubated and being bagged by Respiratory Therapist. Patient transfered to bed, connected to mechanical ventilator by therapist, STEPHENIE at bedside. Patient connected to ICU monitoring, weighed by bedscale, oriented to Alyssa Calvin, primary RN, unit, ventilator and sedation. NOTE: PT TO UNIT SOMEWHAT RESTLESS. VERSED GTT STARTED PER ORDER. PT CONTINUOUSLY ALARMING VENT PT BEING VENTED VIA A CUFFLESS TRACH. PT WITH 22 G IV TO L. WRIST. RLQ PEG TUBE OBSERVED CLAMPED. ALLEN TO GRAVITY DRAINING LIGHT BON URINE WITH SEDIMENT. NO SKIN BREAKDOWN OBSERVED. PT ABLE TO MOVE L. EXTREMITIES. WEAKNESS OBSERVED TO R. UPPER AND LOWER EXT'S. BED IN LOWEST LOCKED POSITION. SIDE RAILS UP X 2. PT PLACED ON DROPLET AND CONTACT ISOLATION WITH PPE IN USE. PT IN FULL VIEW OF RN STATION.
--- NOTE | 2019-02-25 19:41 | NUR ---
Respiratory note: ARRIVED TO ICU FROM CT AT THIS TIME AND PLACED PT ON MAY V200 VENT WITH SETTING OF AC RR 14 VT 550 PEEP 5 FIO2 30%. ALARMS SET AND AUDIBLE WITH VENT PLUGGED INTO RED OUTLET. VENT ALARMING AT THIS TIME, READING LOW VT AND VE. PT HAS CUFFLESS TRACH. SX PT FOR LARGE THICK YELLOW SECRETIONS AT THIS TIME.
[2019-02-25] MEDS: MIDAZOLAM DRIP 50 mg/50mL 50 ML IV SCH (19:45)
--- NOTE | 2019-02-25 19:50 | NUR ---
Specification Manager called patient's mother re: condition update - no answer. Message left on voicemail that patient was transferred to ICU with ICU phone number and name of nurse caring for patient.
--- NOTE | 2019-02-25 20:00 | NUR ---
RESP/POLITICAL SCIENCE FACULTY MEMBER SALBINO TO BEDSIDE. RT REMAINS AT BEDSIDE. PT CONTINUOUSLY ALARMING VENT. PT NO LONGER RESTLESS WITH VERSED GTT INFUSING. PER POLITICAL SCIENCE FACULTY MEMBER SALPETRO OK TO STOP VERSED AND PLACE PT BACK ON T-PIECE PT NOT GETTING VOLUMES FROM VENT DUE TO CUFFLESS TRACH. PT PLACED ON 6L 28% BY RT. SATS INCREASED TO 94%. WILL CONTINUE TO CLOSELY MONITOR.
--- NOTE | 2019-02-25 20:04 | NUR ---
Respiratory note: REMOVED PT FROM VENT AT THIS TIME PER Roni RODRIGUEZ PACKAGING DESIGNER AND PLACED ON TPIECE WITH CM AT 28% 6L. NO COMPLICATIONS. PULSE OX 99%, HR 100, RR 20, BILATERAL BS COARSE CRACKLES. RN AT PACKAGING DESIGNER AT BEDSIDE AT THIS TIME
--- NOTE | 2019-02-25 20:15 | NUR ---
Respiratory note: MED NEB HELD AT THIS TIME DUE TO CENTRAL LINE PLACEMENT. PULSE OX 99% ON 28% 6L CM VIA TPIECE
--- NOTE | 2019-02-25 20:30 | NUR ---
CENTRAL LINE PLACED BY PRAFUL RODRIGUEZ TLC TO R. GROIN PLACED BY PRAFUL RODRIGUEZ WITH NO COMPLICATIONS. XRAY PAGED FOR PLACEMENT.
[2019-02-26] VITALS (52 sets, daily range): BP systolic 86–143; BP diastolic 42–97
[2019-02-26] MEDS: SODIUM CHLORIDE 0.9% 1,000 ML IV SCH ×3 (02:45→22:45)
[2019-02-26] MEDS: MEROPENEM 1GM IVPB 100 ML IV SCH ×3 (03:00→18:12)
--- NOTE | 2019-02-26 03:30 | NUR ---
Patient bathe/linen change Patient given complete bath. Skin integrity assessed for any changes. Linens changed. Patient repositioned for comfort.
[2019-02-26 04:09] LABS: Basophils # (auto) 0 uL; Basophils % (auto) 0.4 % (0.0-2.0); Eosinophils # (auto) 0.2 uL; Eosinophils % (auto) 2.6 % (0.0-7.0); Hematocrit 35.6 % (36.0-46.0); Hemoglobin 12.2 g/dL (12.2-16.2); Lymphocytes # (auto) 1.1 uL; Lymphocytes % (auto) 14.5 % (10.0-50.0); Mean Corpuscular Hemoglobin 30.4 pg (28.0-32.0); Mean Corpuscular Hgb Conc. 34.4 g/dL (32.0-36.0); Mean Corpuscular Volume 88.5 fL (80.0-100.0); Monocytes # (auto) 0.4 uL; Monocytes % (auto) 5.9 % (0.0-12.0); Neutrophils # (auto) 5.6 uL; Neutrophils % (auto) 76.6 % (37.0-80.0); Nucleated Red Blood Cells % 0.1 %; Platelet Count (auto) 177 10^3/uL (140-450); Red Blood Cells 4.03 10^6/uL (4.0-5.20); White Blood Cell 7.3 10^3/uL (4.4-10.8)
[2019-02-26 04:22] LABS: Anion Gap 7 (5-15); BUN/Creatinine Ratio 29.4; Blood Urea Nitrogen 10 mg/dL (7-18); Calcium 8.6 mg/dL (8.5-10.1); Carbon Dioxide 30 mmol/L (21-32); Chloride 111 mmol/L (98-107); GFR African American 254 mL/min; GFR Non-African American 210 mL/min; Glucose 133 mg/dL (74-106); Potassium 3.3 mmol/L (3.5-5.1); Sodium 148 mmol/L (136-145)
[2019-02-26] MEDS ORDERED: POTASSIUM CHL 20MEQ/100ML 100 ML IV ONE (06:00)
[2019-02-26] MEDS: IPRATROPIUM BROM 0.5 MG/2.5ML INH SOL NEB SCH ×5 (06:36→21:39)
[2019-02-26] MEDS: ALBUTEROL SULF 2.5 MG/0.5ML(0.5%) NEB SOLN NEB SCH ×5 (06:36→21:39)
[2019-02-26] MEDS: MUPIROCIN 2% OINT 15gm or 22gm EACHNOSTRI SCH ×2 (10:00→22:00)
--- NOTE | 2019-02-26 10:10 | NUR ---
DR. KAET HERE TO SEE PATIENT. SEE MD NOTES.
[2019-02-26] MEDS: BUDESONIDE (INHALATION) 0.5 MG/2 ML NEB NEB SCH ×2 (10:31→17:56)
--- NOTE | 2019-02-26 11:40 | NUR ---
DR. CHANG HERE TO SEE PATIENT. SEE MD NOTES AND EMR FOR NEW ORDERS.
[2019-02-26] MEDS: AMIKACIN 1,000 MG in D5W 5% 100 ML IV SCH (17:13)
[2019-02-26] MEDS: MIDAZOLAM DRIP 50 mg/50mL 50 ML IV SCH (18:12)
--- NOTE | 2019-02-26 20:00 | NUR ---
OPEN ASSUMED CARE OF FEMALE PT WITH 6 SHILEY TRACH CONNECTED TO 6L HUMIDIFIED O2 AT 28% FIO2. PT OPENS EYES SPONTANEOUSLY, ABLE TO TRACK. UNABLE TO FOLLOW COMMANDS. PT IS NON VERBAL. PT ABLE TO USE L. ARM AND L. LEG. SEVERE WEAKNESS TO R. UPPER AND LOWER EXTREMITIES. SINUS TACH ON DIESEL AUTOMOTIVE TECHNICIAN.. PEG TUBE TO R. UPPER QUAD OF ABDOMEN CLAMPED. ALLEN TO GRAVITY DRAINING LIGHT BON URINE WITH SEDIMENT. RED RASH TO SHER AREA. BRUISE AND SCAB TO L. KNEE. BRUISING TO L. WRIST OTHERWISE NO SKIN BREAKDOWN. BED IN LOWEST LOCKED POSITION. SIDE RAILS UP X 2. HOB ELEVATED. PT ON ISOLATION FOR MRSA NARES AND MDRO SPUTUM. PROPER PPE IN USE. NO INDICATION OF PAIN OBSERVED. PT IN FULL VIEW OF RN STATION.
[2019-02-27] VITALS (21 sets, daily range): BP systolic 80–146; BP diastolic 47–89
[2019-02-27] MEDS: MEROPENEM 1GM IVPB 100 ML IV SCH ×3 (03:00→20:20)
--- NOTE | 2019-02-27 03:27 | NUR ---
Patient bathe/linen change Patient given complete bath. Skin integrity assessed for any changes. Linens changed. Patient repositioned for comfort. FUNGAL CLEAR OINTMENT PLACED TO PERIANAL AREA WITH NEW OPTIFOAM GENTLE SACRAL DRESSING PLACED PER WOUND CARE ORDERS.
[2019-02-27 03:52] LABS: Basophils # (auto) 0 uL; Basophils % (auto) 0.5 % (0.0-2.0); Eosinophils # (auto) 0.3 uL; Eosinophils % (auto) 3.7 % (0.0-7.0); Hematocrit 35.3 % (36.0-46.0); Hemoglobin 11.8 g/dL (12.2-16.2); Lymphocytes # (auto) 1.2 uL; Lymphocytes % (auto) 16.6 % (10.0-50.0); Mean Corpuscular Hemoglobin 29.4 pg (28.0-32.0); Mean Corpuscular Hgb Conc. 33.3 g/dL (32.0-36.0); Mean Corpuscular Volume 88.2 fL (80.0-100.0); Monocytes # (auto) 0.5 uL; Monocytes % (auto) 7.4 % (0.0-12.0); Neutrophils # (auto) 5.1 uL; Neutrophils % (auto) 71.8 % (37.0-80.0); Nucleated Red Blood Cells % 0.2 %; Platelet Count (auto) 187 10^3/uL (140-450); White Blood Cell 7.1 10^3/uL (4.4-10.8)
[2019-02-27 04:09] LABS: Albumin 2.4 g/dL (3.4-5.0); Calcium 8.4 mg/dL (8.5-10.1); Potassium 3.7 mmol/L (3.5-5.1)
[2019-02-27 04:13] LABS: Bilirubin, Total 0.4 mg/dL (0.2-1.0); Total Protein 5.7 g/dL (6.4-8.2)
[2019-02-27] MEDS: ALBUTEROL SULF 2.5 MG/0.5ML(0.5%) NEB SOLN NEB SCH ×5 (06:39→22:55)
[2019-02-27] MEDS: IPRATROPIUM BROM 0.5 MG/2.5ML INH SOL NEB SCH ×5 (06:39→22:55)
[2019-02-27] MEDS: MUPIROCIN 2% OINT 15gm or 22gm EACHNOSTRI SCH ×2 (10:22→20:20)
[2019-02-27] MEDS: SODIUM CHLORIDE 0.9% 1,000 ML IV SCH ×2 (10:35→18:36)
[2019-02-27] MEDS: BUDESONIDE (INHALATION) 0.5 MG/2 ML NEB NEB SCH ×2 (10:51→18:22)
--- NOTE | 2019-02-27 11:32 | NUR ---
Nutrition Follow-up Notes Wt.: 68.5 kg based on bed scale today. Noted 6.3 kg weight loss in last 2 days likely d/t ? fluid loss aeb negative I & Os for past few days. Pt's on vent via trach, asleep, no immediate family member at bedside during rounds this morning. Pt's no signs of distress noted earlier, remains on NPO with EN support temporarily held d/t vomiting, with PICC line in place, for possible PN support, per nursing. Pt's previously on Glucerna 1.2 Michel @ 30 ml/hr via PEG tube providing 864 kcal, 43 gms pro and 580 ml free water. Est. Needs: 1450 kcal to 1800 kcal (25-30 kcal/kgBW), 57 gms to 72 gms pro (0.8-1.0 gms/kgBW). Will continue to monitor pertinent labs and reassess nutrient need prn Labs: Gluc 111 H, Na 147 H, Cl 110 H, BUN 6 L, Cr 0.30 L, Ca 8.4 L, AST 39 H, Tpro 5.7 L, Alb 2.4 L Skin: Emmett scale 13, mod risk, scab with bruised to calf per research and development tester. Pls refer to color strainer's notes 02/19/19 for further details re: tx plans GI: Pt had 2 BM 02/24/19 per research and development tester. PES: Altered nutrition related lab values r/t acute/chronic medical condition aeb hyperglycemia, elev. BUN,ALP, Mg, hypocalcemia and mild hypoalbuminemia Increase nutrient needs r/t current medical condition aeb on vent via trach, NPO with EN support via PEG tube, mild hypoalbuminemia. Will continue to monitor NPO status, skin status, pertinent labs and weight trend. F/u in 2 to 3 days. Rec.: 1.) If still NPO, consider gradual increase on feeding rate of Glucerna 1.2 Michel to 60 ml/hr goal rate as tolerated when medically appropriate. 2.) If Albumin/Prealbumin levels continue trending down, GIT's not working, consider PN support if medically appropriate. 3.) Consider daily MVI with minerals and Asc acid 500 mgs BID prn. 4.) Refer pt's family to CDE/RD for further nutrition education and weight monitoring upon discharge. 5.) Continue current plan of care.
--- NOTE | 2019-02-27 14:40 | NUR ---
DR. MCFADDEN HERE TO SEE PATIENT. SEE MD NOTES AND EMR FOR ANY NEW ORDERS.
--- NOTE | 2019-02-27 15:30 | NUR ---
PATIENT MADE A DNR PER POA (MOTHERS WISHES). SEE CODE STATUS FORM. POA REQUESTS NO BLOOD/BLOOD PRODUCTS PATIENT IS A LATTER-DAY.SEE NEW FORMS FOR DECLINATION OF BLOOD WELL DNR FORM IN PATIENTS CHART.
[2019-02-27] MEDS: AMIKACIN 1,000 MG in D5W 5% 100 ML IV SCH (15:38)
--- NOTE | 2019-02-27 16:00 | NUR ---
PATIENT TAKEN TO RADIOLOGY FOR CT OF HEAD WITHOUT CONTRAST. SEE RESULTS.
--- NOTE | 2019-02-27 17:30 | NUR ---
CALL TO DR. BENAVIDEZ RESULTS OF HEAD CT. NEW ORDERS FOR CONSULT NEUROLOGY.
--- NOTE | 2019-02-27 18:34 | NUR ---
PT SX FOR COPIOUS AMOUNT OF THIN YELLOW SECRETIONS POST TX. Addendum: 02/27/19 at 1841 by ASTON CHILDERS RT Amended: Links added.
--- NOTE | 2019-02-27 19:10 | NUR ---
RECEIVED PATIENT FROM ICU DOWN GRADE TO LUCIANA CONNECTED TO BEDSIDE MONITOR. ON TRACH COLLAR MASK AT 28% FI02. POX 100%. PATIENT NONVERBAL, TRACKS BUT DOES NOT FOLLOW COMMANDS. ALLEN CATH DRAINING URINE TO GRAVITY. RIGHT FEMORAL CENTRAL LINE CONNECTED ON NS AT 100ML/H, AND ABX. PEG TUBE CLAMPED. ATTEMPTED TO INSTRUCT ON POC. BED IS IN THE LOWEST POSITION WITH SIDE RAILS UP X2. WILL CLOSELY MONITOR.
[2019-02-27] MEDS: MIDAZOLAM DRIP 50 mg/50mL 50 ML IV SCH (19:18)
[2019-02-28] VITALS: BP 120/71
[2019-02-28] MEDS: SODIUM CHLORIDE 0.9% 1,000 ML IV SCH ×2 (03:30→16:33)
[2019-02-28] MEDS: MEROPENEM 1GM IVPB 100 ML IV SCH ×3 (03:30→18:37)
--- NOTE | 2019-02-28 03:30 | NUR ---
MORNING HYGIENE CARE FULL BED BATH PERFORMED USING CHG WIPES. GOWN CHANGED. PARTIAL LINEN CHANGED. ALLEN CATH CARE DONE. SKIN REASSESSED AT THIS TIME. NO NEW CHANGES. PATIENT REPOSITIONED FOR COMFORT. TOLERATED IT WELL.
[2019-02-28 04:00] VITALS: BP 153/78
--- NOTE | 2019-02-28 06:50 | NUR ---
END OF SHIFT PATIENT IS LAYING IN BED AWAKE. TRACH COLLAR MASK ON 28% FI02, 6L. VS STABLE. NO DISTRESS NOTED. WILL GIVE REPORT AND ENDORSE CARE TO THE DAY SHIFT RN.
[2019-02-28] MEDS: IPRATROPIUM BROM 0.5 MG/2.5ML INH SOL NEB SCH ×5 (07:23→22:06)
[2019-02-28] MEDS: ALBUTEROL SULF 2.5 MG/0.5ML(0.5%) NEB SOLN NEB SCH ×5 (07:23→22:06)
[2019-02-28] MEDS: BUDESONIDE (INHALATION) 0.5 MG/2 ML NEB NEB SCH ×2 (07:23→17:57)
[2019-02-28 08:00] VITALS: BP 101/55
--- NOTE | 2019-02-28 08:10 | NUR ---
Opening Shift Note Assumed care of patient, patient sleeping, lying down on the bed, woke up by calling her name. No S/S of distress/SOB or pain, will continue to monitor for changes Q1hr and PRN.
--- NOTE | 2019-02-28 09:20 | NUR ---
Dr. Allred at the bedside, seen ans examined patient at this time, received new orders, will carry out.
--- NOTE | 2019-02-28 09:43 | NUR ---
Respiratory note: TRACHEAL SUCTIONED FOR A LARGE AMOUNT OF THIN CLEAR SECRETIONS POST MED NEB TX.
[2019-02-28] MEDS ORDERED: PANTOPRAZOLE 40 MG/10 ML VIAL INJ IV SCH (10:00)
--- NOTE | 2019-02-28 10:30 | NUR ---
Paged and left the message to Dr. Allred's office to call back regarding changing medication Protonix to Pepcid as pharmacist recommendation, will wait to MD to call back.
[2019-02-28] MEDS: MUPIROCIN 2% OINT 15gm or 22gm EACHNOSTRI SCH (10:39)
--- NOTE | 2019-02-28 11:32 | NUR ---
Dr. Harrington at the bedside, talking her mom on the phone about the plan of care, will continue to monitor and care. Addendum: 02/28/19 at 1137 by ALISSA BEASLEY RN RN discussed about hospice care to mom, will continue to monitor.
--- NOTE | 2019-02-28 11:57 | NUR ---
Deep suction provided, position changed at this time as well, mouth care provided, will continue to monitor and care.
[2019-02-28 12:00] VITALS: BP 127/58
--- NOTE | 2019-02-28 12:54 | NUR ---
Paged Dr. Allred to call back.
--- NOTE | 2019-02-28 13:45 | NUR ---
Mouth care provided.
--- NOTE | 2019-02-28 15:52 | NUR ---
Paged Dr. Fernandes regarding Protonix IV order and Low blood pressure: BP 86/56 mmHg, will wait a call back from .
[2019-02-28 16:00] VITALS: BP 86/56
[2019-02-28] MEDS: AMIKACIN 1,000 MG in D5W 5% 100 ML IV SCH (16:12)
--- NOTE | 2019-02-28 16:23 | NUR ---
Received a call from Dr. Chalino MD made aware per pharmacist recommendation, received order to DC Protonix IV and change it to Pepcid 20 mg IV Q every 12 hours.
[2019-02-28] MEDS: FAMOTIDINE (10MG/ML) 2ML VL IV SCH ×2 (16:33→21:20)
--- NOTE | 2019-02-28 16:56 | NUR ---
Provided changing the position, re check her blood pressure at this time, BP 113/68 mmHg, will continue to monitor and care.
[2019-02-28] MEDS: MIDAZOLAM DRIP 50 mg/50mL 50 ML IV SCH (19:05)
[2019-02-28 20:00] VITALS: BP 94/66
--- NOTE | 2019-02-28 20:00 | NUR ---
SHIFT OPENING NOTE RECEIVED PATIENT ON TRACH COLLAR MASK AT 28% FI02. POX 98%. PATIENT NONVERBAL, TRACKS BUT DOES NOT FOLLOW COMMANDS. ALLEN CATH DRAINING URINE TO GRAVITY. RIGHT FEMORAL CENTRAL LINE CONNECTED ON NS AT 100ML/H, AND ABX. PEG TUBE CLAMPED. ATTEMPTED TO INSTRUCT ON POC. BED IS IN THE LOWEST POSITION WITH SIDE RAILS UP X2. WILL CLOSELY MONITOR.
--- NOTE | 2019-02-28 23:00 | NUR ---
HYGIENE CARE PARTIAL BED BATH PERFORMED USING CHG WIPES. SHER CARE PERFORMED. ANTIFUNGAL CREAM PLACED IN SHER AREA. PARTIAL LINEN CHANGED. ALLEN CATH CARE DONE. PATIENT REPOSITIONED FOR COMFORT. TOLERATED IT WELL.
[2019-03-01] VITALS (7 sets, daily range): BP systolic 105–131; BP diastolic 54–78
[2019-03-01] MEDS: SODIUM CHLORIDE 0.9% 1,000 ML IV SCH ×3 (00:54→18:38)
[2019-03-01] MEDS: MEROPENEM 1GM IVPB 100 ML IV SCH ×3 (02:54→18:37)
[2019-03-01] MEDS: ALBUTEROL SULF 2.5 MG/0.5ML(0.5%) NEB SOLN NEB SCH ×5 (06:34→22:07)
[2019-03-01] MEDS: BUDESONIDE (INHALATION) 0.5 MG/2 ML NEB NEB SCH ×2 (06:34→22:07)
[2019-03-01] MEDS: IPRATROPIUM BROM 0.5 MG/2.5ML INH SOL NEB SCH ×5 (06:34→22:07)
--- NOTE | 2019-03-01 06:45 | NUR ---
SX'D TRACH FOR LARGE TO MODERATE. THICK PALE YELLOW TO WHITE SECRETIONS X2. BS. CLEARED POST SX.. CONTINUE TO MONITOR RESP. STATUS AND SX. PRN. Addendum: 03/01/19 at 0655 by Nathalia Archuleta RT Amended: Links added.
--- NOTE | 2019-03-01 06:50 | NUR ---
END OF SHIFT PATIENT LAYING IN BED AWAKE. TRACH T PIECE AT 28% FI02, 6L. PATIENT HAS BEEN SUCTIONED SEVERAL TIMES WITH SPUTUM PRATT COLOR WITH OCCASIONAL RED TINGES. NS INFUSING AT 100ML/H. WILL GIVE REPORT AND ENDORSE CARE TO THE DAY SHIFT RN.
[2019-03-01] MEDS: ACETAMINOPHEN 500 MG TAB PO PRN (07:33)
--- NOTE | 2019-03-01 07:45 | NUR ---
Opening Shift Note Assumed care of patient, awake and alert. No S/S of distress/SOB, HR 110-120 patient moving her arm around abdominal are and perineal are, no redness or distension noted, try to give her Tylenol and will continue to monitor. Instructed on POC and to call for assist PRN, will continue to monitor for changes Q1hr and PRN.
--- NOTE | 2019-03-01 08:00 | NUR ---
Mouth care provided, PEG assessment done, no content noted, heard the bowel movement, test for location +, Flush with medication and water, patent. Will continue to monitor and care.
[2019-03-01] MEDS: FAMOTIDINE (10MG/ML) 2ML VL IV SCH ×2 (10:24→22:45)
--- NOTE | 2019-03-01 10:25 | NUR ---
PT. SX'D FOR THICK PALE YELLOW SECRETIONS X2. TRACH CARE DONE AT THIS TIME. CHANGED INNER CANNULA, TRACH TIES, CLEANED SITE, CHANGED GAUZE, PRAKASH, AND AEROSOL H20. PT. IS AWAKE AND NON VERBAL. TOLERATED WELL, WILL CONTINUE TO MONITOR RESP. STATUS.
--- NOTE | 2019-03-01 11:44 | NUR ---
Patient had moderate of bowel movement with soft and green color, perineal and moncada's catheter care provided, position changed at this time as well. Will continue to monitor and care.
--- NOTE | 2019-03-01 12:09 | NUR ---
Nutrition Follow-up Notes Wt.: 68.9 kg Pt's on vent via trach, asleep, no immediate family member at bedside during rounds this morning. Pt's no signs of distress noted earlier, remains on NPO with EN support temporarily held d/t residuals. Pt's previously on Glucerna 1.2 Michel @ 30 ml/hr via PEG tube providing 864 kcal, 43 gms pro and 580 ml free water. Est. Needs: 1450 kcal to 1800 kcal (25-30 kcal/kgBW), 57 gms to 72 gms pro (0.8-1.0 gms/kgBW). Will continue to monitor pertinent labs and reassess nutrient need prn Labs: GLU 111 H, CA 8.4 L, ALB 2.4 L. Skin: Emmett scale 12, high risk, scab with bruised to calf per marketing co op. Pls refer to coil tier's notes 02/19/19 for further details re: tx plans GI: Pt had 2 BM 02/24/19 per marketing co op. PES: Altered nutrition related lab values r/t acute/chronic medical condition aeb hyperglycemia, elev. BUN,ALP, Mg, hypocalcemia and mild hypoalbuminemia Increase nutrient needs r/t current medical condition aeb on vent via trach, NPO with EN support via PEG tube, mild hypoalbuminemia. Will continue to monitor NPO status, skin status, pertinent labs and weight trend. F/u in 2 to 3 days. Rec.: 1.) If still NPO, consider gradual increase on feeding rate of Glucerna 1.2 Michel to 60 ml/hr goal rate as tolerated when medically appropriate. 2.) If Albumin/Prealbumin levels continue trending down, GIT's not working, consider PN support if medically appropriate. 3.) Consider daily MVI with minerals and Asc acid 500 mgs BID prn. 4.) Refer pt's family to CDE/RD for further nutrition education and weight monitoring upon discharge. 5.) Continue current plan of care.
[2019-03-01] MEDS ORDERED: DEXTROSE (50%) 50ML SYRG IV PRN (14:00)
[2019-03-01] MEDS ORDERED: SODIUM CHLORIDE 0.9 % NEB SOLN 3ML NEB ONE (14:46)
--- NOTE | 2019-03-01 14:50 | NUR ---
SX'D TRACH FOR LARGE AMOUNT OF THICK PALE YELLOW SECRETIONS X2. CONTINUE TO MONITOR RESP. STATUS, SX.PRN. Addendum: 03/01/19 at 1534 by Nathalia Archuleta RT Amended: Links added.
--- NOTE | 2019-03-01 15:00 | NUR ---
Dr. Avelar at the bedside, talked to her mom on the phone ([phone]) about plan of care and the choices of care, her mom made aware, will continue plan of care and monitor at this time.
--- NOTE | 2019-03-01 17:20 | NUR ---
Dr. Harrington at the bedside, received new order.
--- NOTE | 2019-03-01 17:50 | NUR ---
Patient had small bowel movement with green color, perineal and moncada's catheter care provided, applied the OptiForm at sacrum area. Position changed, Blood sugar level 134, and still NPO, will hold insulin as order, will continue to monitor and care.
[2019-03-01] MEDS: InsuLIN REG 1unit/0.01ml Soln (100units/ml) SC SCH (18:00)
[2019-03-01] MEDS: ACCU-CHEK COMFORT CURVE STRIP VI SCH (18:26)
--- NOTE | 2019-03-01 19:05 | NUR ---
OPENING SHIFT RECEIVED REPORT FROM DAY SHIFT RN. ASSUMED CARE OF PATIENT. PATIENT IN BED WITH NO SIGNS OR SYMPTOMS OF SOB, PAIN OR DISTRESS. CURRENTLY ON TBAR 28% 6L 02 VIA TRACH, 02 SAT - 99%. ALLEN HUNG TO GRAVITY ON BED RAIL. RIGHT GROIN CENTRAL LINE X3 - CLEAN/DRY/INTACT. REPOSITIONED FOR COMFORT. SCD'S PLACED BILATERALLY ON LOWER EXTREMITIES. BED IN LOWEST POSITION, SIDE RAILS UP X2, CALL LIGHT WITHIN REACH. WILL CONTINUE TO MONITOR.
--- NOTE | 2019-03-01 20:50 | NUR ---
DR. KENDRICK AT BEDSIDE.
--- NOTE | 2019-03-01 21:10 | NUR ---
PM CARE PERFORMED BED BATH WITH CHG WIPES AND WASH CLOTHS TO THE FACE. PARTIAL LINEN CHANGE AND GOWN CHANGE. ALLEN CARE PERFORMED. BOWEL MOVEMENT NOTED AT THIS TIME. REPOSITIONED FOR COMFORT. BED IN LOWEST POSITION, SIDE RAILS UP X2, CALL LIGHT WITHIN REACH. WILL CONTINUE TO MONITOR.
[2019-03-02] VITALS: BP 111/63
[2019-03-02] MEDS: InsuLIN REG 1unit/0.01ml Soln (100units/ml) SC SCH ×5 (00:22→23:44)
[2019-03-02] MEDS: ACCU-CHEK COMFORT CURVE STRIP VI SCH ×5 (00:23→23:45)
--- NOTE | 2019-03-02 02:35 | NUR ---
Respiratory note: TRACH CARE DONE, UNEVENTFUL. AREA AROUND STOMA CLEANED AND ASSESSED. NO REDNESS OR SKIN BREAKDOWN NOTED. GAUZED CHANGED. PT SUCTIONED, LARGE THICK YELLOW SECRETIONS VIA TRACH. PT PLACED BACK ON COOL AEROSOL, WATER AT ADEQUATE LEVEL. PT RESTING COMFORTABLY AT THIS TIME. WILL CONTINUE TO MONITOR.
[2019-03-02] MEDS ORDERED: AMIKACIN 1,000 MG in D5W 5% 100 ML IV SCH (03:00)
[2019-03-02] MEDS: MEROPENEM 1GM IVPB 100 ML IV SCH ×3 (03:37→18:07)
[2019-03-02 04:00] VITALS: BP 101/70
--- NOTE | 2019-03-02 04:05 | NUR ---
ROUNDS PATIENT IN BED SLEEPING WITH NO SIGNS OR SYMPTOMS OF SOB, PAIN OR DISTRESS. REPOSITIONED FOR COMFORT. WILL CONTINUE TO MONITOR.
--- NOTE | 2019-03-02 06:35 | NUR ---
END OF SHIFT PATIENT IN BED SLEEPING WITH NO SIGNS OR SYMPTOMS OF SOB, PAIN OR DISTRESS. CURRENTLY ON T PIECE 30% 02 6L VIA TRACH, 02 SAT - 98%. ALLEN HUNG TO GRAVITY ON BED RAIL. PEG TUBE CLAMPED. RIGHT GROIN X3 - CLEAN/DRY/INTACT. REPOSITIONED FOR COMFORT. BED IN LOWEST POSITION, SIDE RAILS UP X2, CALL LIGHT WITHIN REACH. WILL ENDORSE CARE TO DAY SHIFT RN.
[2019-03-02] MEDS: ALBUTEROL SULF 2.5 MG/0.5ML(0.5%) NEB SOLN NEB SCH ×6 (06:36→22:55)
[2019-03-02] MEDS: BUDESONIDE (INHALATION) 0.5 MG/2 ML NEB NEB SCH ×2 (06:36→22:56)
[2019-03-02] MEDS: IPRATROPIUM BROM 0.5 MG/2.5ML INH SOL NEB SCH ×6 (06:36→22:55)
--- NOTE | 2019-03-02 06:40 | NUR ---
SX'D TRACH WITH LAVAGE X2 FOR LARGE AMOUNT OF PALE SECRETIONS.
[2019-03-02] MEDS: SODIUM CHLORIDE 0.9% 1,000 ML IV SCH ×2 (06:46→18:05)
[2019-03-02 08:00] VITALS: BP 119/82
--- NOTE | 2019-03-02 08:00 | NUR ---
Opening Shift Note Assumed care of patient, laying in bed with eyes open. Non - verbal, able to follow commands. No S/S of distress/SOB or pain. Patient on 6LPM oxygen, 30% FIO2 via T-piece, saturation 98%. LT abdomen PEG clamped, patent. Bed locked on low position, side rails up x2, bed alarms on at all times, will continue to monitor for changes Q1hr and PRN.
[2019-03-02] MEDS: FAMOTIDINE (10MG/ML) 2ML VL IV SCH ×2 (10:09→21:39)
--- NOTE | 2019-03-02 10:30 | NUR ---
Patient's mother Hal and sister Alexa at bedside, updated on patient's status and POC. Patient's mother states "I wanted to speak to somebody about Hospice." Informed Dr Fernandes over the phone regarding patient's mother's request for Hospice. Received telephone order for Social Service Consult. Orders read back and verified. Will carry out.
--- NOTE | 2019-03-02 11:49 | NUR ---
Dr Fernandes at bedside, updated on patient's status. Informed patient has been off feeding since February 25 because of vomiting, plan to re-start patient on feeding. Awaiting MD's orders.
[2019-03-02 11:50] VITALS: BP 119/66
--- NOTE | 2019-03-02 12:00 | NUR ---
Accucheck 136mg/dl, 2 units of Regular Insulin held, patient no oral intake and no tube feedings. Will continue to monitor.
--- NOTE | 2019-03-02 12:38 | NUR ---
re-assessment Per consult hospice. I have called and left a message for patients mother Zaynab to return my call. Waiting for call back now. Addendum: 03/02/19 at 1739 by Kathy Franco Amended: Links added.
[2019-03-02 14:11] LABS: BUN/Creatinine Ratio 21.1; Calcium 8.7 mg/dL (8.5-10.1)
[2019-03-02 14:19] LABS: Potassium 2.8 mmol/L (3.5-5.1)
--- NOTE | 2019-03-02 14:30 | NUR ---
Spoke to Dr Fernandes over the phone, informed of patient's potassium 2.8, verbalized understanding. Received telephone order to give potassium 40meq IV. Telephone orders read back and verified. Will carry out.
--- NOTE | 2019-03-02 15:00 | NUR ---
Started Glucerna Carb Steady at 10ml/hour via PEG, patient tolerating well. Will continue to monitor.
[2019-03-02] MEDS: POTASSIUM CHL 20MEQ/100ML 100 ML IV SCH ×2 (15:09→18:05)
[2019-03-02 15:45] VITALS: BP 121/68
--- NOTE | 2019-03-02 16:00 | NUR ---
Oral care rendered, patient tolerated well.
--- NOTE | 2019-03-02 18:00 | NUR ---
Patient tolerating Glucerna at 10ml/hr via PEG, no vomiting noted at this time, increased feeding to 20ml/hr. Will continue to monitor.
--- NOTE | 2019-03-02 19:30 | NUR ---
OPENING SHIFT RECEIVED REPORT FROM DAY SHIFT RN. ASSUMED CARE OF PATIENT. PATIENT IN BED RESTING WITH NO SIGNS OR SYMPTOMS OF SOB, PAIN OR DISTRESS. CURRENTLY ON 30% 02 6L VIA TRACH, 02 SAT - 97%. RIGHT GROIN X3 IV - CLEAN/DRY/INTACT. ALLEN HUNG TO GRAVITY ON BED RAIL. SCD'S PLACED ON BILATERAL LOWER EXTREMITIES. REPOSITIONED FOR COMFORT. BED IN LOWEST POSITION, SIDE RAILS UP X2, CALL LIGHT WITHIN REACH. WILL CONTINUE TO MONITOR.
[2019-03-02 19:35] VITALS: BP 128/75
--- NOTE | 2019-03-02 20:15 | NUR ---
DR. KENDRICK AT BEDSIDE.
[2019-03-03] VITALS: BP 118/75
--- NOTE | 2019-03-03 00:05 | NUR ---
ROUNDS PATIENT IN BED SLEEPING WITH NO SIGNS OR SYMPTOMS OF SOB, PAIN OR DISTRESS. CURRENTLY ON 30% 02 6L VIA TRACH, 02 SAT - 96%. REPOSITIONED FOR COMFORT. BED IN LOWEST POSITION, SIDE RAILS UP X2, CALL LIGHT WITHIN REACH. WILL CONTINUE TO MONITOR.
[2019-03-03] MEDS: MEROPENEM 1GM IVPB 100 ML IV SCH ×3 (02:44→18:14)
[2019-03-03] MEDS: SODIUM CHLORIDE 0.9% 1,000 ML IV SCH ×2 (02:57→12:09)
[2019-03-03 04:00] VITALS: BP 132/72
--- NOTE | 2019-03-03 04:10 | NUR ---
MORNING CARE MORNING CARE PERFORMED WITH CHG WIPES AND WASH CLOTHS TO THE FACE. FULL LINEN AND GOWN CHANGE. REPOSITIONED FOR COMFORT. BED IN LOWEST POSITION, SIDE RAILS UP X2. WILL CONTINUE TO MONITOR.
--- NOTE | 2019-03-03 04:10 | NUR ---
ROUNDS PATIENT IN BED SLEEPING WITH NO SIGNS OR SYMPTOMS OF SOB, PAIN OR DISTRESS. CURRENTLY ON 30% 02 6L VIA TRACH, 02 SAT - 98%. REPOSITIONED FOR COMFORT. BED IN LOWEST POSITION, SIDE RAILS UP X2. WILL CONTINUE TO MONITOR.
[2019-03-03] MEDS: ACCU-CHEK COMFORT CURVE STRIP VI SCH ×3 (06:00→18:14)
[2019-03-03] MEDS: InsuLIN REG 1unit/0.01ml Soln (100units/ml) SC SCH ×3 (06:00→18:15)
[2019-03-03] MEDS: ALBUTEROL SULF 2.5 MG/0.5ML(0.5%) NEB SOLN NEB SCH ×5 (06:24→23:26)
[2019-03-03] MEDS: IPRATROPIUM BROM 0.5 MG/2.5ML INH SOL NEB SCH ×5 (06:24→23:27)
--- NOTE | 2019-03-03 06:30 | NUR ---
END OF SHIFT PATIENT IN BED SLEEPING WITH NO SIGNS OR SYMPTOMS OF SOB, PAIN OR DISTRESS. CURRENTLY ON 30% 02 6L VIA TRACH, 02 SAT - 99%. REPOSITIONED FOR COMFORT. ALLEN HUNG TO GRAVITY ON BED RAIL. RIGHT GROIN IV X3 - CLEAN/DRY/INTACT. PEG TUBE PATENT. BED IN LOWEST POSITION, SIDE RAILS UP X2. WILL CONTINUE TO MONITOR. Addendum: 03/03/19 at 0740 by DAMIEN ELMORE RN RN WILL ENDORSE CARE TO DAY SHIFT RN.
[2019-03-03 07:30] VITALS: BP 98/61
--- NOTE | 2019-03-03 07:30 | NUR ---
Opening Shift Note Assumed care of patient, laying in bed, eyes open, tracts, non-verbal, follows simple commands. No S/S of distress/SOB or pain. Patient on 6 LPM oxygen, 35% FIO2 via T-piece, saturation 97%. PEG tube clamped, patent, no residuals noted, plan to resume Glucerna Carb Steady 30ml/hr at 0800. Bed locked on lowest position, side rails up x2, bed alarms on at all times, will continue to monitor for changes Q1hr and PRN.
--- NOTE | 2019-03-03 08:00 | NUR ---
No residuals noted, resumed Glucerna Carb Steady at 30ml/hr via PEG, patient tolerating well.
--- NOTE | 2019-03-03 09:00 | NUR ---
PEG tube clamped.
--- NOTE | 2019-03-03 10:00 | NUR ---
No residuals noted, tube feeding resumed at 30ml/hr. Patient tolerating well.
[2019-03-03] MEDS: BUDESONIDE (INHALATION) 0.5 MG/2 ML NEB NEB SCH ×2 (10:11→23:27)
[2019-03-03] MEDS: FAMOTIDINE (10MG/ML) 2ML VL IV SCH ×2 (10:47→21:48)
--- NOTE | 2019-03-03 11:08 | NUR ---
PEG tube clamped
--- NOTE | 2019-03-03 11:10 | NUR ---
Patient had moderate amount of pasty dark brown stool, given perineal carer. Skin integrity assessed for any changes. Linens changed. Patient repositioned for comfort.
[2019-03-03 11:50] VITALS: BP 115/61
--- NOTE | 2019-03-03 12:00 | NUR ---
Patient tolerating tube feeding, no residuals noted, re-started Glucerna Carb Steady at 30mls/hr. Will continue to monitor.
--- NOTE | 2019-03-03 15:00 | NUR ---
Nutrition Follow-up Notes Wt.: 68.4 kg today Pt's on vent via trach, in isolation room, asleep, no immediate family member at bedside except for RN during rounds this morning. Pt's no signs of distress noted earlier, remains on NPO with EN support of Glucerna 1.2 Michel @ 30 ml Q2hr (from [id number]) via PEG tube providing 288 kcal, 14 gms pro and 193 ml free water, tolerates feeding well, no vomiting nor residuals noted since yesterday, per nursing. Pt with inadequate EN support d/t low initiation rate delivery of of concentrated formula aeb current intermittent EN infusion meets 16% to 20% of est caloric needs and 19% to 24% of est protein needs. Followed up RD's recommendation, per MD's approval. Est. Needs: 1450 kcal to 1800 kcal (25-30 kcal/kgBW), 57 gms to 72 gms pro (0.8-1.0 gms/kgBW). Will continue to monitor pertinent labs and reassess nutrient need prn Labs: POC Gluc 138 H; 03/02/19 Guc 156 H, Cl 108 H, BUN 2.8 L, Cr 0.38 L, Tpro 5.7 L, Alb 2.4 L. Skin: Emmett scale 13, mod risk, scab with bruised to calf per internet marketing coordinator. Pls refer to loading machine operator helper's notes 02/19/19 for further details re: tx plans GI: Pt had 2 BM 03/02/19 per internet marketing coordinator. PES: Altered nutrition related lab values r/t acute/chronic medical condition aeb hyperglycemia, elev. BUN,ALP, Mg, hypocalcemia and mild hypoalbuminemia Increase nutrient needs r/t current medical condition aeb on vent via trach, NPO with EN support via PEG tube, mild hypoalbuminemia. Will continue to monitor NPO status, skin status, pertinent labs and weight trend. F/u in 2 to 3 days. Rec.: 1.) Consider gradual increase on feeding rate of Glucerna 1.2 Michel to 60 ml/hr goal rate as tolerated when medically appropriate. 2.) If Albumin continues trending down, consider Prostat 1 pkt BID. 3.) Consider daily MVI with minerals and Asc acid 500 mgs BID prn. 4.) Refer pt's family to CDE/RD for further nutrition education and weight monitoring upon discharge. 5.) Continue current plan of care.
[2019-03-03 15:40] VITALS: BP 122/79
--- NOTE | 2019-03-03 19:05 | NUR ---
OPENING SHIFT RECEIVED REPORT FROM DAY SHIFT RN. ASSUMED CARE OF PATIENT. PATIENT IN BED RESTING WITH NO SIGNS OR SYMPTOMS OF SOB, PAIN OR DISTRESS. CURRENTLY ON 28% FI02 6L 02 VIA TRACH T - PIECE, 02 SAT - 97%. PEG TUBE CLAMPED. RIGHT GROIN IV X3 - CLEAN/DRY/INTACT. ALLEN HUNG TO GRAVITY ON BED RAIL. REPOSITIONED FOR COMFORT. BED IN LOWEST POSITION, SIDE RAILS UP X2. WILL CONTINUE TO MONITOR.
[2019-03-03 19:42] VITALS: BP 123/77
--- NOTE | 2019-03-03 19:55 | NUR ---
PAGED HOSPITALIST AWAITING CALL BACK.
[2019-03-03] MEDS ORDERED: POTASSIUM EFFERVESENT TAB 25 MEQ GT ONE (20:30)
[2019-03-04] MEDS: ACCU-CHEK COMFORT CURVE STRIP VI SCH ×5 (00:01→23:54)
[2019-03-04] MEDS: InsuLIN REG 1unit/0.01ml Soln (100units/ml) SC SCH ×5 (00:01→23:55)
[2019-03-04] MEDS: SODIUM CHLORIDE 0.9% 1,000 ML IV SCH ×3 (02:35→21:00)
[2019-03-04] MEDS: MEROPENEM 1GM IVPB 100 ML IV SCH ×3 (03:00→20:09)
--- NOTE | 2019-03-04 03:15 | NUR ---
MORNING CARE MORNING CARE PERFORMED WITH CHG WIPES AND WASH CLOTHS TO THE FACE. PARTIAL LINEN CHANGE AND GOWN CHANGED. SKIN REASSESSED AT THIS TIME. REPOSITIONED FOR COMFORT. BED IN LOWEST POSITION, SIDE RAILS UP X2, CALL LIGHT WITHIN REACH. WILL CONTINUE TO MONITOR.
[2019-03-04] MEDS: ALBUTEROL SULF 2.5 MG/0.5ML(0.5%) NEB SOLN NEB SCH ×5 (05:37→22:03)
[2019-03-04] MEDS: IPRATROPIUM BROM 0.5 MG/2.5ML INH SOL NEB SCH ×5 (05:37→22:03)
--- NOTE | 2019-03-04 06:32 | NUR ---
END OF SHIFT PATIENT IN BED SLEEPING WITH NO SIGNS OR SYMPTOMS OF SOB, PAIN OR DISTRESS. CURRENTLY ON 28% FI02 6L VIA TRACH, 02 SAT - 96%. RIGHT GROIN IV X3 - CLEAN/DRY/INTACT. PEG TUBE CLAMPED. ALLEN HUNG TO GRAVITY ON BED RAIL. REPOSITIONED FOR COMFORT. BED IN LOWEST POSITION, SIDE RAILS UP X2, CALL LIGHT WITHIN REACH. WILL ENDORSE CARE TO DAY SHIFT RN.
[2019-03-04 08:00] VITALS: BP 119/63
--- NOTE | 2019-03-04 08:00 | NUR ---
OPENING SHIFT NOTE: ASSUMED CARE OF PATIENT. PATIENT IN BED RESTING WITH NO S/S OF SOB, PAIN OR DISTRESS. CURRENTLY ON 28% FI02 6L 02 VIA TRACH T - PIECE, SATURATION AT 97%. PEG TUBE CLAMPED. RIGHT GROIN TRIPLE LUMEN RUNNING NS AT 100ML/HR PATENT, CLEAN, DRY, AND INTACT. ALLEN TO GRAVITY. REPOSITIONED FOR COMFORT. BED IN LOWEST POSITION, SIDE RAILS UP X2. WILL CONTINUE TO MONITOR.
[2019-03-04] MEDS: MIDAZOLAM DRIP 50 mg/50mL 50 ML IV SCH ×2 (08:02→19:18)
--- NOTE | 2019-03-04 10:00 | NUR ---
Medication dosages, usages, and side effects explained to patient. Patient unable to verbalized understanding. Will continue to monitor.
[2019-03-04] MEDS: BUDESONIDE (INHALATION) 0.5 MG/2 ML NEB NEB SCH ×2 (10:38→22:03)
--- NOTE | 2019-03-04 11:00 | NUR ---
FAMILY AT BEDSIDE.
[2019-03-04] MEDS: FAMOTIDINE (10MG/ML) 2ML VL IV SCH ×2 (11:14→21:30)
[2019-03-04 11:44] VITALS: BP 115/69
--- NOTE | 2019-03-04 12:30 | NUR ---
NO CHANGE IN PATIENT STATUS. NO S/S OF PAIN/SOB OR DISTRESS NOTED AT THIS TIME. WILL CONTINUE TO MONITOR.
--- NOTE | 2019-03-04 14:30 | NUR ---
NO CHANGE IN PATIENT STATUS. NO S/S OF PAIN/SOB OR DISTRESS NOTED AT THIS TIME. WILL CONTINUE TO MONITOR.
--- NOTE | 2019-03-04 16:15 | NUR ---
DR. SMITH AT BEDSIDE.
[2019-03-04 16:20] VITALS: BP 113/57
--- NOTE | 2019-03-04 18:30 | NUR ---
END OF SHIFT NOTE: ASSUMED CARE OF PATIENT. PATIENT IN BED RESTING WITH NO S/S OF SOB, PAIN OR DISTRESS. CURRENTLY ON 28% FI02 6L 02 VIA TRACH T - PIECE, SATURATION AT 97%. PEG TUBE CLAMPED. RIGHT GROIN TRIPLE LUMEN RUNNING NS AT 100ML/HR PATENT, CLEAN, DRY, AND INTACT. ALLEN TO GRAVITY. REPOSITIONED FOR COMFORT. BED IN LOWEST POSITION, SIDE RAILS UP X2. REPORT TO BE GIVEN TO SOFTWARE SALES MANAGER RN. WILL CONTINUE TO MONITOR.
[2019-03-04 20:00] VITALS: BP 119/74
--- NOTE | 2019-03-04 20:00 | NUR ---
Opening Shift Note Assumed care of patient, awake, aphasic, not able to follow commands. Turned at this time for pressure relief, sacrum with blanchable redness, optifoam gentle in place.Peg tube feedings off, checked for residual, none noted.T-piece at 6L with 28%fio2, lung sounds diminished/coarse throughout. Suctioned patient with moderate amounts of thick creamy secretions.See interventions for complete physical assessment. No S/S of distress/SOB or pain. Aspiration,pressure ulcer, and fall preventions initiated. Will continue to monitor frequently.
[2019-03-05] VITALS (7 sets, daily range): BP systolic 102–114; BP diastolic 65–80
[2019-03-05] MEDS: MEROPENEM 1GM IVPB 100 ML IV SCH ×3 (03:19→18:16)
--- NOTE | 2019-03-05 04:00 | NUR ---
Right Femoral central line dressing Change Central line dressing change done with a sterile technique. Cleansed with chloraprep scrub/betadine. Stat lock, and bio-patch as available. Occlusive dressing applied. See e-MAR for medications given during this visit. Patient tolerated well.
--- NOTE | 2019-03-05 04:45 | NUR ---
AM CARE ORAL CARE DONE, SUCTIONED WITH MINIMAL CREAMY SECRETIONS DONE.COMPLETE BED BATH PROVIDED, SKIN INTEGRITY REASSESSED: NO NEW CHANGES. ALLEN CARE PROVIDED, PERINEAL AREA WITH MINIMAL REDNESS, ANTIFUNGAL CREAM PLACED. OPTIFOAM TO SACRUM FOR PREVENTATIVE, Z-GUARD APPLIED. PARTIAL LINEN CHANGE DONE AND NEW GOWN PLACED ON PATIENT. REPOSITIONED IN BED FOR COMFORT.CONTINUE TO MONITOR.
[2019-03-05] MEDS: ALBUTEROL SULF 2.5 MG/0.5ML(0.5%) NEB SOLN NEB SCH ×5 (05:58→21:55)
[2019-03-05] MEDS: IPRATROPIUM BROM 0.5 MG/2.5ML INH SOL NEB SCH ×5 (05:58→21:55)
--- NOTE | 2019-03-05 06:25 | NUR ---
FEEDINGS RESTARTED PER ORDERS, NO RESIDUALS NOTED.
[2019-03-05] MEDS: ACCU-CHEK COMFORT CURVE STRIP VI SCH ×3 (06:26→17:54)
[2019-03-05] MEDS: InsuLIN REG 1unit/0.01ml Soln (100units/ml) SC SCH ×3 (06:45→17:54)
--- NOTE | 2019-03-05 07:30 | NUR ---
Opening Shift Note Assumed care of patient, laying in bed, eyes open, aphasic, able to follow simple commands. No S/S of distress/SOB or pain. Patient on 6LPM oxygen via T-piece, 28% FIO2, saturation 98%. Glucerna Carb Steady running 30ml/hr via PEG, patient tolerating well, no residuals noted, clamped, will re-start feeding at 0830. Bed locked on lowest position, side rails up x2, bed alarms on at all times, will continue to monitor for changes Q1hr and PRN.
--- NOTE | 2019-03-05 09:56 | NUR ---
re-assessment I have spoken with patients mother Arelis Jade regarding hospice. Per Arelis Jade she has talked with MD regarding hospice and agrees with hospice [facility]. Per Arelis Jade she would like to speak with the hospice that is associated with [facility]. MD order has been sent to [facility]. Lilian from [facility] has spoken with Arelis Jade and is looking for placement now. Addendum: 03/05/19 at 1006 by Kathy BARRETO Amended: Links added.
[2019-03-05] MEDS: SODIUM CHLORIDE 0.9% 1,000 ML IV SCH ×2 (10:35→14:45)
[2019-03-05] MEDS: FAMOTIDINE (10MG/ML) 2ML VL IV SCH ×2 (10:35→21:38)
[2019-03-05] MEDS: BUDESONIDE (INHALATION) 0.5 MG/2 ML NEB NEB SCH ×2 (10:38→21:55)
--- NOTE | 2019-03-05 10:45 | NUR ---
Wound care Nelli RN at bedside to re-evaluate patient.
--- NOTE | 2019-03-05 10:50 | NUR ---
WOUND CARE NOTE: Wound care in to see patient for reevaluation of intertrigo to perineum and skin integrity monitoring. Patient continue resting in SDU bed in Rm. 261. She's awake but not oriented. Patient appears to be in no pain using Vergara Jaeger Faces Pain Scale. She's total care and max assist in turning and repositioning. Her Emmett score is 13. Skin/wound assessment done with the assistance of patient's nurse, GRECIA Mortensen. No open wound noted other than mild intertrigo to bilateral upper medial thighs, perineum, perirectal area. New photograph of patient's skin integrity issue are taken for reference. Patient is receiving BID/PRN cleaning and application of Barrier cream, Antifungal clear ointment. Patient's Lt lateral calf continue to display intact, dry scabs and ecchymosis. Patient tolerated well, repositioned patient for comfort, redistributed pressure points with pillows. Bed in low position with all safety precautions in placed. RECOMMENDATION: Continuation of all wound care orders prescribed by MD, continue with skin/wound plan of care, continue monitoring by wound care while patient is hospitalized. Addendum: 03/05/19 at 1228 by Nelli Webber RN Amended: Links added.
--- NOTE | 2019-03-05 11:38 | NUR ---
Dr Jj at bedside, updated on patient's status. Patient seen and examined. received verbal order to revised Dexamethasone to 4mg every 8 hrs, orders read back and verified. Will carry out.
--- NOTE | 2019-03-05 14:12 | NUR ---
Nutrition Follow-up Notes Wt.: 68.0 kg today Pt's on T-piece, asleep in isolation room, no immediate family member at bedside when rounded this morning. Pt's no signs of distress noted earlier, remains on NPO with EN support of Glucerna 1.2 Michel @ 30 ml Q2hr (from 1521-4414) via PEG tube providing 288 kcal, 14 gms pro and 193 ml free water, tolerates feeding well, no vomiting nor residuals noted since yesterday, per nursing. Pt with inadequate EN support d/t low initiation rate delivery of of concentrated formula aeb current intermittent EN infusion meets 16% to 20% of est caloric needs and 19% to 24% of est protein needs. Followed up RD's recommendation, per MD's approval. Est. Needs: 1450 kcal to 1800 kcal (25-30 kcal/kgBW), 57 gms to 72 gms pro (0.8-1.0 gms/kgBW). Will continue to monitor pertinent labs and reassess nutrient need prn Labs: POC Gluc 156 H; 03/03/19 K 3.3 L , na 147 H, Cl 110 H, BUN 6 L, Cr 0.30 L, AST 39 H, Tpro 5.7 L, Alb 2.4 L. Skin: Emmett scale 13, mod risk, scab with bruised to calf per vp outcomes. Pls refer to early childhood education instructor's notes today for further details re: tx plans GI: Pt had 2 BM 03/03/19 per vp outcomes. PES: Altered nutrition related lab values r/t acute/chronic medical condition aeb hyperglycemia, elev. BUN,ALP, Mg, hypocalcemia and mild hypoalbuminemia Increase nutrient needs r/t current medical condition aeb on vent via trach, NPO with EN support via PEG tube, mild hypoalbuminemia. Will continue to monitor NPO status, EN tolerance, skin status, pertinent labs and weight trend. F/u in 2 to 3 days. Rec.: 1.) Consider gradual increase on feeding rate of Glucerna 1.2 Michel to 60 ml/hr goal rate as tolerated when medically appropriate. 2.) If Albumin continues trending down, consider Prostat 1 pkt BID. 3.) Consider daily MVI with minerals and Asc acid 500 mgs BID prn. 4.) Refer pt's family to CDE/RD for further nutrition education and weight monitoring upon discharge. 5.) Continue current plan of care.
--- NOTE | 2019-03-05 16:25 | NUR ---
Per consult for Hospice. Per Kathy information and choice letter was given to pt family. Contacted [facility] and faxed medical records Ph: Fax: ). Per Lilian from [facility] they are not able to take Pt unless Pt is only able to have O2 through the nose. Informed Kathy and she said she will follow up with Lilian from [facility]. Addendum: 03/06/19 at 0827 by LIN WILBURN Amended: Links added.
--- NOTE | 2019-03-05 19:45 | NUR ---
Opening Shift Note Assumed care of patient, eyes open but does not follow commands.Trach via t-piece 28% O2 at 6L. No S/S of distress/SOB or pain. Turned patient and repositioned in bed for comfort and completed physical assessment. No residuals noted to PEG tube, glucerna feedings at 30cc. Aspiration, fall and pressure ulcer precautions initiated.
[2019-03-06] VITALS (12 sets, daily range): BP systolic 71–132; BP diastolic 48–77
[2019-03-06] MEDS: InsuLIN REG 1unit/0.01ml Soln (100units/ml) SC SCH ×4 (00:30→17:53)
[2019-03-06] MEDS: ACCU-CHEK COMFORT CURVE STRIP VI SCH ×4 (00:30→17:53)
[2019-03-06] MEDS: MEROPENEM 1GM IVPB 100 ML IV SCH ×3 (03:32→18:54)
[2019-03-06] MEDS: SODIUM CHLORIDE 0.9% 1,000 ML IV SCH ×3 (03:33→20:45)
--- NOTE | 2019-03-06 03:55 | NUR ---
AM CARE ORAL CARE PROVIDED WITH SUCTIONING, MINIMAL CREAMY PRATT SECRETIONS NOTED. COMPLETE BED BATH DONE, NO NEW SKIN ISSUES NOTED.PATIENT HAD SMEAR OF BROWN BM, CLEANSED AND PATTED DRY, SACRUM INTACT WITH OPTIFOAM. PARTIAL BED LINEN CHANGE DONE AND NEW GOWN PLACED ON PATIENT. REPOSITIONED IN BED FOR COMFORT. CONTINUE TO CARE AND POC.
[2019-03-06] MEDS: MIDAZOLAM DRIP 50 mg/50mL 50 ML IV SCH (06:24)
--- NOTE | 2019-03-06 06:25 | NUR ---
LOW BP BP NOTED TO BE 65/42, TRENDING IN 60'S SYSTOLIC. PATIENT IS MORE LETHARGIC AND HARDER TO AROUSE, WILL OPEN EYES TO STERNAL RUB NOT WHEN CALLED BY NAME. POX CONTINUED TO BE IN HIGH 90'S WITH HR OF 64. ON 28% FIO2 VIA TRACH T-PIECE AND 6L. WILL ATTEMPT TO REACH FAMILY, ALTHOUGH THROUGH RN REPORT IT WAS REPORTED FAMILY DID NOT WANT TO BE NOTIFIED OF ANY CHANGES.
[2019-03-06] MEDS: ALBUTEROL SULF 2.5 MG/0.5ML(0.5%) NEB SOLN NEB SCH ×5 (06:28→22:00)
[2019-03-06] MEDS: IPRATROPIUM BROM 0.5 MG/2.5ML INH SOL NEB SCH ×5 (06:28→22:00)
[2019-03-06] MEDS: BUDESONIDE (INHALATION) 0.5 MG/2 ML NEB NEB SCH ×2 (06:28→18:36)
--- NOTE | 2019-03-06 06:34 | NUR ---
SPOKE WITH PATIENT'S MOTHER GUMARO JAY REGARDING PATIENT STATUS. GUMARO JAY STATED SHE WOULD ATTEMPT TO MAKE ARRANGEMENTS TO VISIT ALTHOUGH SHE NEEDS TO FIND A RIDE FROM [employer]. INFORMED HER I WOULD BE PASSING IT ON TO DAY SHIFT RN TO CALL FOR FURTHER CHANGES. GUMARO JAY STATED SHE WOULD LIKE TO BE INFORMED. CONTINUE TO MONITOR PATIENT.
--- NOTE | 2019-03-06 07:07 | NUR ---
CARE ENDORSED TO DAY SHIFT RN
--- NOTE | 2019-03-06 07:30 | NUR ---
Opening Shift Note Assumed care of patient, laying in bed, eyes closed, arousable to shaking and suctioning. No S/S of distress/SOB or pain. Patient on 6 LPM oxygen 28% FIO2 via T-piece, saturation 100. BP 83/56 and HR 78 trending down from patient's baseline. Glucerna with Carb Steady running at 30ml/hr via PEG, patient tolerating well, no residuals noted. See interventions for complete assessment. Bed locked on low position, side rails up x2, bed alarms on at all times, will continue to monitor for changes Q1hr and PRN.
--- NOTE | 2019-03-06 09:00 | NUR ---
Tracheal suctioning done, patient has moderate amount of creamy thick secretion. Oral care done. Patient tolerated well.
[2019-03-06] MEDS: FAMOTIDINE (10MG/ML) 2ML VL IV SCH ×2 (09:40→21:20)
--- NOTE | 2019-03-06 10:02 | NUR ---
Patient's mother Jodorothyn at bedside, updated on patient's status. Informed patient's HR and BP is trending down, Margien verbalized understanding.
--- NOTE | 2019-03-06 12:05 | NUR ---
Patient had moderate amount of dark brown, pasty stool, given perianal care. Skin integrity assessed for any changes. Linens changed. Patient repositioned for comfort.
--- NOTE | 2019-03-06 13:10 | NUR ---
visits - updated on discharge plans - order received.
--- NOTE | 2019-03-06 13:25 | NUR ---
Came back from lunch, per Aminah Kate rounded on patient and gave verbal order to transfer patient to Med-Surg. Will carry out.
--- NOTE | 2019-03-06 14:00 | NUR ---
Spoke to case repairer Kathy Franco and this RN was informed that patient was not accepted at [facility]. She'll call and speak to patient's mother regarding other options.
--- NOTE | 2019-03-06 16:02 | NUR ---
re-assessment I informed Arelis Jade patients mother that a [facility] is not able to take patient on the hi flow apparatus she is on through the trach. Family has no money for placement. Arelis Jade has decided after talking to Dr Kate that patient will return to [facility] on comfort measures. Hospice will be canceled. Patient will be transported by [facility] on discharge. Lilian from hospice has been notified. Addendum: 03/06/19 at 1610 by Kathy BARRETO Amended: Links added.
--- NOTE | 2019-03-06 18:00 | NUR ---
LUCIANA pt transferred to floor [facility] transfered to 204 via bed. Patient shows no signs of distress. Patient does not appear to be in any pain and shows no signs of shortness of breath. Patient's IV and tube feeding will be resumed according to orders.
--- NOTE | 2019-03-06 18:00 | NUR ---
LUCIANA pt transferred to floor [facility] transfered to Med Surg Floor via hospital bed on portable 02. No personal belongings at bedside. Patient care transferred to Breanna PAIGE.
--- NOTE | 2019-03-06 18:30 | NUR ---
Re: Peg tube Feeds Per Report from LUCIANA RN. Patient's feeding stopped at 1800 and needs to be resumed at 1900. Will resume feeding as ordered.
--- NOTE | 2019-03-06 18:50 | NUR ---
Patient's Medications/Meropenem Patient's medications, meropenem, were sent over from LUCIANA at this time. Will put in non-fridge IV.
--- NOTE | 2019-03-06 19:00 | NUR ---
Patient's Feeding Patient's feeding resumed at this time as ordered.
--- NOTE | 2019-03-06 19:25 | NUR ---
Closing Note Patient is resting in bed. Tube feeding and antibiotic running at this time. Patient does not appear to be in any pain and shows no signs or symptoms of distress. Report given. Will endorse care to the manager shift RN.
--- NOTE | 2019-03-06 20:00 | NUR ---
PEG TUBE CLAMPED. PATIENT TOLERATING WELL. HOB REMAINS UPRIGHT. STRICT ASPIRATION PRECAUTIONS.
--- NOTE | 2019-03-06 21:00 | NUR ---
No residuals noted, resumed tube feeding at 30ml/hr via PEG, patient tolerating well. HOB remains in upright position, strict aspiration precautions.
--- NOTE | 2019-03-06 22:00 | NUR ---
PEG TUBE CLAMPED. PATIENT TOLERATING WELL. HOB REMAINS UPRIGHT. STRICT ASPIRATION PRECAUTIONS.
--- NOTE | 2019-03-06 23:00 | NUR ---
No residuals noted, resumed tube feeding at 30ml/hr via PEG, patient tolerating well. HOB remains in upright position, strict aspiration precautions.
--- NOTE | 2019-03-07 | NUR ---
PEG TUBE CLAMPED. WILL RESUME TUBE FEEDINGS AT 0700 ORDERED. PATIENT TOLERATING WELL. HOB REMAINS UPRIGHT. STRICT ASPIRATION PRECAUTIONS.
[2019-03-07] MEDS: InsuLIN REG 1unit/0.01ml Soln (100units/ml) SC SCH ×5 (00:14→23:31)
[2019-03-07] MEDS: ACCU-CHEK COMFORT CURVE STRIP VI SCH ×5 (00:15→23:20)
[2019-03-07] MEDS: MEROPENEM 1GM IVPB 100 ML IV SCH ×3 (03:53→18:32)
[2019-03-07 05:00] VITALS: BP 106/68
[2019-03-07] MEDS: SODIUM CHLORIDE 0.9% 1,000 ML IV SCH ×2 (06:24→17:34)
[2019-03-07] MEDS: ALBUTEROL SULF 2.5 MG/0.5ML(0.5%) NEB SOLN NEB SCH ×5 (06:55→22:43)
[2019-03-07] MEDS: IPRATROPIUM BROM 0.5 MG/2.5ML INH SOL NEB SCH ×5 (06:55→22:43)
--- NOTE | 2019-03-07 07:53 | NUR ---
Opening Shift Note Assumed care of patient, awake and alert. No S/S of distress/SOB or pain. Instructed on POC and to call for assist PRN, will continue to monitor for changes Q1hr and PRN.
[2019-03-07 09:00] VITALS: BP 118/75
[2019-03-07] MEDS: FAMOTIDINE (10MG/ML) 2ML VL IV SCH ×2 (10:26→21:29)
[2019-03-07] MEDS: BUDESONIDE (INHALATION) 0.5 MG/2 ML NEB NEB SCH ×2 (10:28→18:55)
--- NOTE | 2019-03-07 11:38 | NUR ---
Nutrition Follow-up Notes Wt.: 66.5 kg Pt's on T-piece, asleep in isolation room, no immediate family member at bedside when rounded this morning. Pt's no signs of distress noted earlier, remains on NPO with EN support of Glucerna 1.2 Michel @ 30 ml Q2hr (from [id number]) per RN via PEG tube providing 288 kcal, 14 gms pro and 193 ml free water, tolerates feeding well. Pt with inadequate EN support d/t low initiation rate delivery of of concentrated formula aeb current intermittent EN infusion meets 16% to 20% of est caloric needs and 19% to 24% of est protein needs. per records pt seen by onco Est. Needs: 1450 kcal to 1800 kcal (25-30 kcal/kgBW), 57 gms to 72 gms pro (0.8-1.0 gms/kgBW). Will continue to monitor pertinent labs and reassess nutrient need prn Labs: POC Gluc 114 H; 03/03/19 K 3.3 L , na 147 H, Cl 110 H, BUN 6 L, Cr 0.30 L, AST 39 H, Tpro 5.7 L, Alb 2.4 L. Skin: Emmett scale 12, mod risk, scab with bruised to calf per magazine publisher. Pls refer to outboard motors experimental mechanic's notes for further details re: tx plans GI: Pt had 1 BM 03/06/19 per magazine publisher. PES: Altered nutrition related lab values r/t acute/chronic medical condition aeb hyperglycemia, elev. BUN,ALP, Mg, hypocalcemia and mild hypoalbuminemia Increase nutrient needs r/t current medical condition aeb on vent via trach, NPO with EN support via PEG tube, mild hypoalbuminemia. Will continue to monitor NPO status, EN tolerance, skin status, pertinent labs and weight trend. F/u in 2 to 3 days. Rec.: 1.) Consider gradual increase on feeding rate of Glucerna 1.2 Michel to 60 ml/hr goal rate as tolerated when medically appropriate. 2.) If Albumin continues trending down, consider Prostat 1 pkt BID. 3.) Consider daily MVI with minerals and Asc acid 500 mgs BID prn. 4.) Refer pt's family to CDE/RD for further nutrition education and weight monitoring upon discharge. 5.) Continue current plan of care.
[2019-03-07 13:00] VITALS: BP 103/59
--- NOTE | 2019-03-07 14:38 | NUR ---
RT NOTE: TRACH CARE DONE WITHOUT INCIDENT BY STERILE PRACTICE. INNER CANNULA AND DRAIN SPONGE CHANGED. NO REDNESS OR SKIN BREAKDOWN NOTED AROUND STOMA SITE. DRAIN BAG EMPTIED. PT. SUCTIONED FOR SMALL, THICK, PALE YELLOW SECRETIONS. GAG/COUGH NOTED. EXTRA TRACH SIZE 4 AND 6 AT BEDSIDE WELL BVM WITH O2 SOURCE.
[2019-03-07 16:43] VITALS: BP 123/67
--- NOTE | 2019-03-07 20:00 | NUR ---
PEG TUBE CLAMPED. PATIENT TOLERATING WELL. HOB REMAINS UPRIGHT. STRICT ASPIRATION PRECAUTIONS.
--- NOTE | 2019-03-07 21:00 | NUR ---
PATIENT DUE FOR CHANGE OF FEEDINGS. NO FEEDING BAG AVAILABLE ON UNIT. CONTACTED CHARGE NURSE, HE WILL CONTACT CARBON FURNACE OPERATOR TO RETRIEVE FEEDING BAG.
[2019-03-07 22:00] VITALS: BP 114/65
--- NOTE | 2019-03-07 23:00 | NUR ---
New feeding hung. No residuals noted, resumed tube feeding at 30ml/hr via PEG, patient tolerating well. HOB remains in upright position, strict aspiration precautions.
--- NOTE | 2019-03-08 | NUR ---
PEG TUBE CLAMPED. WILL RESUME TUBE FEEDINGS AT 0700 ORDERED. PATIENT TOLERATING WELL. HOB REMAINS UPRIGHT. STRICT ASPIRATION PRECAUTIONS.
[2019-03-08] MEDS: SODIUM CHLORIDE 0.9% 1,000 ML IV SCH ×2 (02:45→12:45)
[2019-03-08] MEDS: MEROPENEM 1GM IVPB 100 ML IV SCH ×2 (03:00→10:55)
[2019-03-08 05:00] VITALS: BP 111/72
[2019-03-08] MEDS: InsuLIN REG 1unit/0.01ml Soln (100units/ml) SC SCH ×3 (06:06→18:26)
[2019-03-08] MEDS: ACCU-CHEK COMFORT CURVE STRIP VI SCH ×3 (06:06→18:26)
[2019-03-08] MEDS: IPRATROPIUM BROM 0.5 MG/2.5ML INH SOL NEB SCH ×4 (06:53→18:11)
[2019-03-08] MEDS: ALBUTEROL SULF 2.5 MG/0.5ML(0.5%) NEB SOLN NEB SCH ×4 (06:53→18:11)
--- NOTE | 2019-03-08 06:58 | NUR ---
No residuals noted, resumed tube feeding at 30ml/hr via PEG, patient tolerating well. HOB remains in upright position, strict aspiration precautions.
--- NOTE | 2019-03-08 07:50 | NUR ---
OPENING SHIFT NOTE PATIENT IN BED EYES OPEN TO NAME, BED IN LOWEST LOCKED POSITION CHEST RISE AND FALL VISUALIZED. CHANGED POSITION TO RIGHT SIDE. TOLERATED WELL. WILL CONTINUE TO MONITOR QHOUR OR PRN
[2019-03-08 08:30] VITALS: BP 111/72
[2019-03-08 09:00] VITALS: BP 128/76
--- NOTE | 2019-03-08 10:00 | NUR ---
peg tube feeding no residule noted, resumed tube feeding at 30ml/hr.
[2019-03-08] MEDS: BUDESONIDE (INHALATION) 0.5 MG/2 ML NEB NEB SCH ×2 (10:20→18:11)
[2019-03-08] MEDS: FAMOTIDINE (10MG/ML) 2ML VL IV SCH (10:54)
[2019-03-08 11:53] VITALS: BP 128/76
--- NOTE | 2019-03-08 12:00 | NUR ---
no residual noted, resumed tube feeding 30ml/hr. hob elevated. patient tolerated well
[2019-03-08 13:00] VITALS: BP 92/58
--- NOTE | 2019-03-08 14:00 | NUR ---
no residual noted, resumed tube feeding 30ml/hr. hob elevated. patient tolerated well
--- NOTE | 2019-03-08 16:05 | NUR ---
peg tube feeding zero residual noted. tube feeding continued. hob elevated. patient tolerated well
--- NOTE | 2019-03-08 16:16 | NUR ---
TELEPHONE ORDER FROM DR WARD FOR PATIENT TO KEEP [facility] AND CENTRAL LINE FOR DC TO [facility]
--- NOTE | 2019-03-08 16:18 | NUR ---
GAVE TELEPHONE REPORT TO BERNY PAIGE AT [facility]. BERNY AWARE PATIENT IS TO GO HOME WITH [facility] AND CENTRAL LINE.
--- NOTE | 2019-03-08 18:08 | NUR ---
[facility] SWAB COMPLETED AND SENT TO LAB
--- NOTE | 2019-03-08 18:54 | NUR ---
STILL AWAITING [facility] TO CLAY PREPARATION SUPERVISOR PATIENT FOR TRANSPORT. PEG TUBE FLUSHED AFTER PLACEMENT VERIFIED VIA AUSCULTATION,PATIENT TOLERATED WELL. HOB ELEVATED. PATIENT SHOWS NO S/S OF DISTRESS OR SOB. BED IN LOWEST LOCKED POSITION. ENDORSE CARE TO NOC RN
--- NOTE | 2019-03-08 19:40 | NUR ---
Opening Shift Note Received report and assumed care of pt and [facility] here for transport. [facility].
== END 2019-03-08 19:40 | DRG 871 ==
LOC: EDBD 12:50 → EDSEX 12:50 → ER 12:55 → TELE 12:56 → DOU IN ICU 18:21 → ICU WEST 02-25 19:41 → DOU IN ICU 02-27 19:04 → CENTRAL 03-06 18:13
PROVIDERS: ADMIT Nurse Practitioner Acute Care; ATTEND Internal Medicine Cardiovascular Disease
PROC: 06HM33Z Insertion of Infusion Device into Right Femoral Vein, Percutaneous Approach (ICD-10-PCS; principal; 2019-02-25)
DX: A41.9 Sepsis, unspecified organism (principal); G93.6 Cerebral edema; G93.41 Metabolic encephalopathy; J69.0 Pneumonitis due to inhalation of food and vomit; J15.1 Pneumonia due to Pseudomonas; J96.21 Acute and chronic respiratory failure with hypoxia; E44.1 Mild protein-calorie malnutrition; N39.0 Urinary tract infection, site not specified; E87.0 Hyperosmolality and hypernatremia; G81.91 Hemiplegia, unspecified affecting right dominant side; C79.31 Secondary malignant neoplasm of brain; Z99.11 Dependence on respirator [ventilator] status; J44.0 Chronic obstructive pulmonary disease with (acute) lower respiratory infection; Z51.5 Encounter for palliative care; Z66 Do not resuscitate; F20.9 Schizophrenia, unspecified; F32.9 Major depressive disorder, single episode, unspecified; E87.5 Hyperkalemia; B95.2 Enterococcus as the cause of diseases classified elsewhere; D63.8 Anemia in other chronic diseases classified elsewhere; E86.1 Hypovolemia; E87.6 Hypokalemia; B96.5 Pseudomonas (aeruginosa) (mallei) (pseudomallei) as the cause of diseases classified elsewhere; Z16.30 Resistance to unspecified antimicrobial drugs; K21.9 Gastro-esophageal reflux disease without esophagitis; E11.9 Type 2 diabetes mellitus without complications; F17.200 Nicotine dependence, unspecified, uncomplicated; F41.9 Anxiety disorder, unspecified; I10 Essential (primary) hypertension; F09 Unspecified mental disorder due to known physiological condition; Z22.322 Carrier or suspected carrier of Methicillin resistant Staphylococcus aureus; Z74.01 Bed confinement status; Z93.0 Tracheostomy status; Z99.81 Dependence on supplemental oxygen; Z87.440 Personal history of urinary (tract) infections; Z93.1 Gastrostomy status; Z79.82 Long term (current) use of aspirin; Z79.899 Other long term (current) drug therapy; Z68.26 Body mass index [BMI] 26.0-26.9, adult
CPT/HCPCS: 31720; 36415; 36600; 51702; 70450; 71045; 71250; 73060; 74018; 80048; 80053; 80076; 80150; 80202; 81001; 82805; 82962; 83605; 83735; 84132; 84295; 84300; 85025; 85610; 85730; 86850; 86900; 86901; 87040; 87070; 87077; 87081; 87086; 87088; 87186; 87205; 93005; 94002; 94640; 94761; 96365; 96367; 96368; 97110; 97163; 97530; A4605; G0378; J0696; J1100; J1815; J1956; J2185; J2250; J2405; J3480; J3490; J7060